=== PATIENT | female | born 1965 | race African-American/Black ===

== ENCOUNTER 2020-05-18 15:25 | Outpatient (REF) | payer OTHER, SELFPAY | END 2020-05-18 15:26 | disposition home or self-care (01) | LOC: HO.LAB 15:25 | PROVIDERS: Visit Provider Internal Medicine | DX: Z20.822 Contact with and (suspected) exposure to COVID-19 (principal) | CPT/HCPCS: 36415; C9803; U0003; U0005 ==

== ENCOUNTER 2020-10-22 12:39 | Emergency (ER) | payer OTHER, SELFPAY ==
[2020-10-22 12:45] VITALS: BP 152/90; PULSE 87; RESP 16; TEMP 36.9; O2SAT 97; BMI 30.2
--- NOTE | 2020-10-22 13:09 | ED_ITS ---
HPI - Extremity Problem General Chief complaint: Extremity Problem Stated complaint: L ARM PAIN Time Seen by Provider: 10/22/20 13:05 Source: patient Limitations: no limitations History of Present Illness HPI Narrative: This is a 55-year-old female who complains of pain to her left lateral elbow for about 3 months. The patient had initially been seen by her primary care physician and was put on anti-inflammatory medicines, was referred for physical therapy. More recently, for 5 days ago. The patient had accidentally cut her left palmar hand along the ulnar aspect. The wound is healed up but she notes some numbness and tingling to her little finger. She denies any weakness of the finger. Related Data Previous Rx's Medication Instructions Recorded meloxicam 7.5 mg PO DAILY #14 tab 10/22/20 Allergies Allergy/AdvReac Type Severity Reaction Status Date / Time No Known Allergies Allergy Verified 10/22/20 12:48 [No Known Allergies*] Review of Systems Review of Systems: As per HPI Musculoskeletal: Musculoskeletal: Reports arthralgias (Left elbow) Neurologic: Reports paresthesias [facility] Past Medical History Medical History (Updated 10/22/20 @ 13:09 by Malvin iRch MD) Arthritis Carpal tunnel syndrome HTN (hypertension) Sleep apnea Social History Social History Advance Directives: Yes Advance Directives Information Provided: Yes Advance Directives on File: No Patient : No Physical Exam Vital Signs: Vital Signs: Last Vital Signs Temp 98.4 F 10/22/20 12:45 Pulse 87 10/22/20 12:45 Resp 16 10/22/20 12:45 BP 152/90 H 10/22/20 12:45 Pulse Ox 97 10/22/20 12:45 Body Mass Index 30.2 Const: General: healthy appearing HENMT: Head: Yes normal to inspection Eyes: General: appearance normal, both eyes and all related structures Resp: Effort & Inspection: normal respiratory effort Auscultation: clear to auscultation bilaterally Cardio: Rate: regular rate Rhythm: regular rhythm Heart sounds: S1 normal heart sound present and S2 normal heart sound present Extrem: Left upper extremity: full ROM and hand (Left palmar ulnar hand with healed minor laceration. Full power of flexion) Details: other (Subjective decreased sensation to light touch left little finger; left elbow normal except mild tenderness lateral epicondyle, no erythema or swelling) MDM - Extremity (Nontraumatic) MDM Narrative Medical decision making narrative: Patient concerned about a feeling of numbness in her little finger after she had had a laceration to her hand days ago, which is now healed. Normal tendon function. Patient may have had a minor nerve injury which will gradually heal, no intervention necessary. Patient also complained of chronic left lateral elbow pain patient will started meloxicam. No concerning findings on exam of the elbow Discharge Plan Discharge Clinical Impression: Chronic pain of left elbow, Paresthesia of finger Patient Disposition: Home, Self-Care Instructions: Tennis Elbow (ED), Paresthesia (ED) Additional Instructions: Take the meloxicam for your elbow pain. You feeling of numbness and tingling in her little finger, after your recent laceration, with likely gradually get be tter over the next few months. May have had a mild nerve injury. Follow-up with your primary care physician. Prescriptions: New meloxicam 7.5 mg tablet 7.5 mg PO DAILY Qty: 14 RF: 0 Discharge Date/Time: 10/22/20 13:14
== END 2020-10-22 13:14 | disposition home or self-care (01) ==
PROVIDERS: Emergency Provider Emergency Medicine
DX: M25.522 Pain in left elbow (principal); G89.29 Other chronic pain; R20.2 Paresthesia of skin; I10 Essential (primary) hypertension
CPT/HCPCS: 99283

== ENCOUNTER 2021-12-18 13:26 | Emergency (ER) | payer OTHER, SELFPAY ==
[2021-12-18 13:44] VITALS: BP 172/80; PULSE 68; RESP 16; TEMP 37.2; O2SAT 97; BMI 30.8
--- NOTE | 2021-12-18 15:34 | ED.GENADULT ---
HPI - General Adult General Chief complaint: General Medical Stated complaint: Facial swelling Time Seen by Provider: 12/18/21 15:29 Source: patient Mode of arrival: ambulatory Limitations: no limitations History of Present Illness HPI narrative: This is a 56-year-old female with history of fibromyalgia and hypertension who presents with 2 days of lower eyelid swelling and itching a with sinus congestion. Patient denies any sinus pressure or sinus pain. No visual complaints. No cough, sore throat, fevers or chills. Patient denies any home treatments. Related Data Previous Rx's Medication Instructions Recorded meloxicam 7.5 mg tablet 7.5 mg PO DAILY #14 tabs 10/22/20 fluticasone propionate 50 2 spray intranasal DAILY #16 grams 12/18/21 mcg/actuation nasal spray,suspension (Flonase Allergy Relief) loratadine 10 mg tablet (Claritin) 10 mg PO DAILY #30 tabs 12/18/21 Allergies Allergy/AdvReac Type Severity Reaction Status Date / Time No Known Allergies Allergy Verified 10/22/20 12:48 [No Known Allergies*] Review of Systems Review of Systems: Yes all other systems are reviewed and are negative Constitutional: Constitutional: Reports no additional constitutional complaints, Denies body ache(s), Denies chills, Denies fever(s), Denies headache(s) and Denies weakness Eyes: Eyes: Reports no additional eye complaints and Denies change in vision ENT: Reports system reviewed and no additional complaints, except as documented, Denies dizziness, Denies headache(s), Denies nasal congestion, Denies nasal discharge and Denies neck pain Cardiovascular: Cardiovascular: Reports no additional cardiovascular complaints, Denies chest pain, Denies leg edema and Denies dyspnea Respiratory: Respiratory: Reports no additional respiratory complaints, Denies cough and Denies dyspnea Gastrointestinal: Gastrointestinal: Reports no additional gastrointestinal complaints, Denies abdominal pain, Denies diarrhea, Denies nausea and Denies vomiting Genitourinary: Genitourinary: Reports no additional female genitourinary complaints and Denies urinary incontinence Musculoskeletal: Musculoskeletal: Reports no additional musculoskeletal complaints, Denies back pain, Denies arthralgias, Denies joint swelling, Denies neck pain, Denies numbness and Denies tingling Integumentary/Breasts: Skin/Breast: Reports system reviewed and no additional complaints, except as docu and Denies rash Neurologic: Reports system reviewed and no additional complaints, except as documented, Denies dizziness, Denies headache(s), Denies numbness, Denies tingling and Denies weakness PMFSH Past Medical History Attestation statement: The following information was validated with the patient. Source: old records reviewed and nursing notes reviewed Medical History Arthritis Carpal tunnel syndrome HTN (hypertension) Sleep apnea Social History Social History Advance Directives: No Advance Directives Information Provided: No Physical Exam ED Vital Signs: Vital Signs - 24 hr 12/18/21 13:44 Temperature 99.0 F Pulse Rate 68 Respiratory Rate 16 Blood Pressure 172/80 H Pulse Oximetry 97 Oxygen Delivery Method Room Air BMI result Body Mass Index 30.8 Const General: cooperative, healthy appearing, comfortable and no acute distress Orientation/consciousness: patient oriented x3 Limitations: no limitations HENMT Other: To the inferior periorbital area there is slight swelling w/ allergic shiners and no erythema/warmth/tenderness. Ears: hearing grossly normal bilaterally and TM's normal bilaterally General nose exam: Normal external nose present and Abnormal mucous membranes and turbinates present (mild erythema) Face and sinus: Yes sinuses nontender Mouth: Normal oral and palatal mucosa present Throat: Yes posterior oropharynx normal, Yes tonsils normal and Yes uvula midline Eyes General: appearance normal, both eyes and all related structures Pupils: Equal, round and reactive pupils present EOM: EOMs intact bilaterally Neck Neck: Yes normal visual inspection, Yes full ROM and Yes no lymphadenopathy Chest Chest palpation & inspection: normal inspection of the chest Resp Effort & Inspection: normal respiratory effort Auscultation: clear to auscultation bilaterally Cardio Rate: regular rate Rhythm: regular rhythm Peripheral pulses: Peripheral pulses 2+ throughout Skin General skin exam: no rashes or lesions noted Neuro General: patient oriented x3 and moves all extremities Cranial nerves: Yes Equal, round and reactive pupils present Cognition (Neuro): normal cognition Gait exam (Neuro): Normal gait present Medical Decision Making MDM Narrative Medical decision making narrative: 56 yo female here with 2 days of inferior periorbital swelling, nasal congestion. Exam c/w with allergic shiners likely secondary to allergic rhinitis. No sinus pain/pressure to suggest sinusitis. No visual complaints, EOM movement to suggest orbital cellulitis. No redness/ warmth to suggest periorbital cellulitis. Will start nasal sprain, claritin. Medical Records Medical records reviewed: Yes I reviewed the patient's medical records. Lab Data Lab results reviewed: Yes I reviewed the patient's lab results. Discharge Plan Discharge Clinical Impression: Allergic rhinitis Patient Disposition: Home, Self-Care Instructions: Allergic Rhinitis (ED), How to Use Nasal [place] (ED) Additional Instructions: Cool compresses to the face Return for redness or increased swelling or pain with eye movement for vision changes Prescriptions: New fluticasone propionate [Flonase Allergy Relief] 50 mcg/actuation spray,suspension 2 spray intranasal DAILY Qty: 16 0RF Rx Instructions: administer into each nostril loratadine [Claritin] 10 mg tablet 10 mg PO DAILY Qty: 30 0RF No Action meloxicam 7.5 mg tablet 7.5 mg PO DAILY Qty: 14 0RF Referrals: Physician,Unknown J [Primary Care Provider] - 5 days (if no improvement in symptoms ) Interventions: ED Discharge Assessment Last Done: 12/18/21 15:39 Discharge Date/Time: 12/18/21 15:41
== END 2021-12-18 15:41 | disposition home or self-care (01) ==
LOC: HO.ED 15:38
PROVIDERS: Emergency Provider Emergency Medicine
DX: J30.9 Allergic rhinitis, unspecified (principal); I10 Essential (primary) hypertension
CPT/HCPCS: 99282; 99283

== ENCOUNTER 2023-02-09 00:28 | Emergency (ER) | payer MEDICAID, SELFPAY ==
--- NOTE | ~2023-02-09 | XR_ITS ---
EXAMINATION: XR CHEST CLINICAL INFORMATION: Pain, coughing. COMPARISON: Chest radiograph 01/19/2019. TECHNIQUE: 2 views of the chest were obtained. FINDINGS: Unchanged cardiomediastinal silhouette. No focal airspace opacity, pleural effusion or pneumothorax. No acute osseous findings. Visualized upper abdomen is within normal limits. XR/XR chest 2V IMPRESSION: No acute cardiopulmonary findings.
[2023-02-09 00:32] VITALS: BP 174/88; PULSE 95; RESP 16; TEMP 37.1; O2SAT 95; BMI 29.3
[2023-02-09 00:52] VITALS: BP 133/68; PULSE 82; RESP 18; O2SAT 96
--- NOTE | 2023-02-09 02:36 | ED_ITS ---
HPI - General Adult General Chief complaint: Abdominal Pain Stated complaint: Left side pain Time Seen by Provider: 02/09/23 02:33 Source: patient Mode of arrival: ambulatory Limitations: no limitations History of Present Illness HPI narrative: Patient comes to the emergency room complaining of left-sided rib pain. Patient states it started when she was coughing. Patient denies any chest pain or shortness of breath. Patient states it only hurts when she coughs. Related Data Previous Rx's Medication Instructions Recorded meloxicam 7.5 mg tablet 7.5 mg PO DAILY #14 tabs 10/22/20 fluticasone propionate 50 2 spray intranasal DAILY #16 grams 12/18/21 mcg/actuation nasal spray,suspension (Flonase Allergy Relief) loratadine 10 mg tablet (Claritin) 10 mg PO DAILY #30 tabs 12/18/21 benzonatate 100 mg capsule 100 mg PO TID PRN cough #10 caps 02/09/23 Allergies Allergy/AdvReac Type Severity Reaction Status Date / Time No Known Allergies Allergy Verified 10/22/20 12:48 [No Known Allergies*] Review of Systems Review of Systems: Constitutional : No Weight loss, No Fever, No Chills, No Night Sweats, No Fatigue, No Malaise ENT/Mouth : No Hearing loss, No Ear Pain, No Nasal Congestion, No Sinus Pain, No Hoarseness, No sore throat, No Rhinorrhea, No Swallowing Difficulty Eyes: No Eye Pain, No Swelling, No Redness, No Foreign Body, No Discharge, No Vision Changes Cardiovascular : No Chest Pain, No SOB, No Dyspnea on Exertion, No Orthopnea, No Edema, No Palpitations Respiratory : No Cough, No Sputum, No Wheezing, No Smoke Exposure, No Dyspnea Gastrointestinal : No Nausea, No Vomiting, No Diarrhea, No Constipation, No abdominal Pain, No Hematochezia, No Melena Genitourinary : no irregular bleeding, No Dysuria, No Urinary Frequency, No Hematuria, No Urinary Incontinence, No Urgency, No Flank Pain, No Urinary Flow Changes, No Hesitancy Musculoskeletal : Complaining of left-sided rib pain with coughing, No joint pain, No Myalgias, No Joint Swelling Skin : No Skin Lesions, No rash Neuro : No Weakness, No Numbness, No Paresthesias, No Loss of Consciousness, No Dizziness, No Headache Psych : No Anxiety/Panic, No Depression, No SI/HI/AH/VH, No Social Issues, Heme/Lymph: No Bruising, No Bleeding,No Lymphadenopathy Endocrine : No Polyuria, No Polydipsia, No Temperature Intolerance [facility] Past Medical History Medical History Sleep apnea Carpal tunnel syndrome Arthritis HTN (hypertension) Social History Social History Smoked in Last 30 Days: No Use of substances other than those prescribed or required for medical reasons: No Advance Directives: No Advance Directives Information Provided: Yes Patient : No Physical Exam ED Vital Signs: Vital Signs - 24 hr 02/09/23 00:32 02/09/23 00:52 Temperature 98.7 F Pulse Rate 95 82 Respiratory Rate 16 18 Blood Pressure 174/88 H 133/68 Pulse Oximetry 95 96 Oxygen Delivery Method Room Air Room Air BMI result Body Mass Index 29.3 Const Other: Appearance: Alert. Oriented X3. No acute distress. Eyes: Pupils equal, round and reactive to light. ENT: Pharynx normal. Neck: Normal inspection. Neck supple. No lymph nodes noted. No crepitus CVS: Normal heart rate and rhythm. Pulses normal. Normal S1 and S2 Respiratory: No respiratory distress. Breath sounds normal. No Wheezing. No rales Musculoskeletal: Reproducible pain to palpation over the ribs on the left side. Abdomen: Soft and nontender. No rigidity. No distention. Skin: Skin warm and dry. Normal skin color. Normal skin turgor. Extremities: No lower extremity edema. No Lacerations. No Rash Neuro: Oriented X 3. No motor deficit. No sensory deficit. Moving all extremities. No slurred speech. CN 2 through 12 grossly intact Psych: calm, cooperative, normal affect Medical Decision Making Medical Decision Making MDM Narrative: -my interpretation of chest x-ray: No pneumonia, no rib fracture -patient's pain likely secondary to costochondritis, pulled muscle -patient was given 1 dose of IM Toradol Differential Diagnosis Differential Diagnoses: The differential diagnosis associated with the presentation includes (Pneumonia, fractured rib, costochondritis, musculoskeletal pain) Independent Interpretation I performed an independent interpretation of an: Plain X-Ray Radiology Impression Discussion of test interpretation with radiology: I have reviewed the radiologist's reading. Radiologist Impression: Unchanged cardiomediastinal silhouette. No focal airspace opacity, pleural effusion or pneumothorax. No acute osseous findings. Visualized upper abdomen is within normal limits. XR/XR chest 2V IMPRESSION: No acute cardiopulmonary findings. Discharge Plan Discharge Clinical Impression: Costochondritis Patient Disposition: Home, Self-Care Instructions: Costochondritis (ED) Additional Instructions: Please follow-up with your primary care physician tomorrow. If you have any worsening or new symptoms, please return to the emergency room or call 911 Prescriptions: New benzonatate 100 mg capsule 100 mg PO TID PRN (Reason: cough) Qty: 10 0RF No Action meloxicam 7.5 mg tablet 7.5 mg PO DAILY Qty: 14 0RF fluticasone propionate [Flonase Allergy Relief] 50 mcg/actuation spray,suspension 2 spray intranasal DAILY Qty: 16 0RF Rx Instructions: administer into each nostril loratadine [Claritin] 10 mg tablet 10 mg PO DAILY Qty: 30 0RF
[2023-02-09 02:43] VITALS: BP 139/74; PULSE 72; RESP 16; TEMP 36.7; O2SAT 98
[2023-02-09] MEDS: Ketorolac Tromethamine 60 MG/2 ML VIAL IM (02:44)
[2023-02-09] MEDS: Benzonatate 100 MG CAPSULE PO (02:44)
== END 2023-02-09 02:58 | disposition home or self-care (01) ==
PROVIDERS: Emergency Provider Emergency Medicine
DX: M94.0 Chondrocostal junction syndrome [Tietze] (principal); I10 Essential (primary) hypertension
CPT/HCPCS: 71046; 96372; 99284; J1885

== ENCOUNTER 2023-02-12 16:48 | Emergency (ER) | payer MEDICAID, SELFPAY ==
--- NOTE | ~2023-02-12 | US_ITS ---
EXAMINATION: US ABDOMEN LIMITED CLINICAL INFORMATION: Left upper quadrant, epigastric and flank pain. Evaluate pancreas, spleen and left kidney COMPARISON: None available. TECHNIQUE: Real-time imaging of the left upper quadrant abdominal viscera. FINDINGS: PANCREAS: Normal. Spleen: Normal. Spleen measures 8.6 cm in length. Left KIDNEY: Normal. No hydronephrosis. No renal calculi or focal parenchymal lesions. The kidney measures 9.7 cm in maximum dimension. FREE FLUID: None. US/US abdomen limited IMPRESSION: Normal pancreas, spleen and left kidney
[2023-02-12 16:50] VITALS: BP 166/94; PULSE 94; RESP 18; TEMP 36.8; O2SAT 97; BMI 31.2
--- NOTE | 2023-02-12 16:51 | ED.ABDPAIN ---
HPI - Abdominal Pain General Chief Complaint: General Medical Stated Complaint: Lower L sided pain/ was seen sat 02/09 Time Seen by Provider: 02/12/23 22:55 Source: patient and old records reviewed Mode of arrival: ambulatory Limitations: no limitations History of Present Illness HPI narrative: 57 year old post menopausal female with no PMH presents for ongoing left sided pain. She was here on 02/09 for left sided pain and cough since 02/08 and was diagnosed with costochondritis secondary to viral illness. She was given benzonatate upon discharge and was given toradol IM in the ED. She states her cough has improved but her pain is now radiating towards her back x2 days, which it did not do previously. She denies injury to the ribs. She reports the pain is located along her ribs and just inferior to her ribs on the left side. She states the pain is worse with coughing. She states she has minimal discomfort currently. She is unsure if food makes it worse because she has not eaten today due to being busy with work. She denies vomiting, nausea, fever, dyspnea, or urinary symptoms. She reports diarrhea once today, unsure if blood was present. Related Data Previous Rx's Medication Instructions Recorded meloxicam 7.5 mg tablet 7.5 mg PO DAILY #14 tabs 10/22/20 fluticasone propionate 50 2 spray intranasal DAILY #16 grams 12/18/21 mcg/actuation nasal spray,suspension (Flonase Allergy Relief) loratadine 10 mg tablet (Claritin) 10 mg PO DAILY #30 tabs 12/18/21 benzonatate 100 mg capsule 100 mg PO TID PRN cough #10 caps 02/09/23 codeine 10 mg-guaifenesin 100 mg/5 10 ml PO Q6H PRN cough #473 mL 02/12/23 mL oral liquid Allergies Allergy/AdvReac Type Severity Reaction Status Date / Time No Known Allergies Allergy Verified 10/22/20 12:48 [No Known Allergies*] Review of Systems Constitutional: Denies chills, Denies fatigue, Denies fever(s) and Denies poor appetite Denies dysphagia Cardiovascular: Denies chest pain, Denies epigastric discomfort and Denies dyspnea Comments: Left Lateral chest wall pain Respiratory: Reports cough, Denies hemoptysis, Reports pain with cough and Denies dyspnea Gastrointestinal: Denies dysphagia, Reports diarrhea, Denies nausea and Denies vomiting Genitourinary: Denies dysuria, Denies urinary incontinence and Denies urinary urgency Endocrine: Denies fatigue PMFSH Past Medical History Medical History Sleep apnea Carpal tunnel syndrome Arthritis HTN (hypertension) Social History Social History Advance Directives: No Advance Directives Information Provided: No Physical Exam ED Vital Signs: Vital Signs - 24 hr 02/12/23 16:50 02/12/23 22:52 Temperature 98.2 F 98.1 F Pulse Rate 94 87 Respiratory Rate 18 18 Blood Pressure 166/94 H 140/71 H Pulse Oximetry 97 98 Oxygen Delivery Method Room Air Room Air BMI result Body Mass Index 31.2 Const General: cooperative, healthy appearing, comfortable, no acute distress, well developed, alert and awake Nutritional Appearance: well nourished Orientation/consciousness: patient oriented x3 Limitations: no limitations HENMT Head: Yes normal to inspection, Yes normocephalic and Yes atraumatic Ears: hearing grossly normal bilaterally General nose exam: Normal external nose present and Normal nares present Eyes Conjunctivae: conjunctivae normal Sclerae: sclerae normal Corneas: corneas normal Pupils: Equal, round and reactive pupils present Chest Chest palpation & inspection: abnormal palpation of chest wall (tender to palpation on left sided ribs) and no crepitus Resp Effort & Inspection: normal respiratory effort and able to speak in complete sentences Auscultation: clear to auscultation bilaterally Cardio Rate: regular rate Rhythm: regular rhythm GI Inspection: No distended Palpation (GI): Soft to palpation, not firm, nontender, no guarding and not rigid General: Yes no CVA tenderness Back/Spine/Pelvis Back: no CVA tenderness Skin General skin exam: no rashes or lesions noted Neuro General: patient oriented x3 Cranial nerves: Yes Equal, round and reactive pupils present Cognition (Neuro): normal cognition Psych Appearance: grossly normal Mental Status: mental status grossly normal Attitude: cooperative Course Course Course Narrative: RME: 57yo F w/PMHx sleep apnea, arthritis, HTN, c/o LUQ abd pain radiating to L flank x 4 days. Patient was seen in our ED on Saturday for similar sx dx w/costochrondritis, had negative CXR at that time abdomen soft nontender, no CVAT EKG, labs, UA, US ordered Full HPI, ROS and PE to be performed by primary ED provider. Medical Decision Making Medical Decision Making [facility] Narrative: 57-year-old female presents for evaluation of left-sided chest wall pain that is reproducible on exam. There is no crepitus, chest x-ray is clear without infiltrates or effusions. Troponin is undetectable despite 4 days worth of pain. Agree with recent diagnosis of costochondritis as the patient's symptoms oral and present for a total of 4 days. I educated the patient that her symptoms may last for up to a week. She does state that her cough is improving. I ordered a D-dimer which was negative which is essentially rules out PE. I have a low suspicion for PE as patient does not have any risk factors. Plan to discharge the patient with Mucinex with codeine to help with the cough and the pain Differential Diagnosis Differential Diagnoses: The differential diagnosis associated with the presentation includes costochondritis viral syndrome nephrolithiasis rib fracture less likely PE less likely Lab Data [facility] Lab Attestation statement: I reviewed the patient's lab results. Mild leukocytosis with no anemia. Platelet count is just above normal at 424 K. No electrolyte abnormalities. Normal LFTs. Troponin undetectable 02/12/23 17:12 02/12/23 17:12 Labs: Lab Results 02/12/23 Range/Units 17:12 WBC 13.0 H (4.8-10.8) X10*3/uL RBC 4.42 (4.20-5.50) X10*6/uL Hgb 12.6 (12.0-16.0) g/dl Hct 38.8 (37.0-47.0) % MCV 87.8 (80.0-98.0) fL MCH 28.5 (27.0-33.0) pg MCHC 32.5 (31.0-35.0) g/dl RDW 12.6 (11.0-16.0) % Plt Count 424 H (160-400) X10*3/uL MPV 8.6 L (9.4-12.3) fL Immature Gran % (Auto) 0.6 H (0.0-0.4) % Neut % (Auto) 68.8 (45-73) % Lymph % (Auto) 25.3 (20-40) % [place] % (Auto) 4.4 (2-11) % Eos % (Auto) 0.1 (0-4) % Baso % (Auto) 0.8 (0-2) % Lymph # (Auto) 3.3 (1.2-4.9) X10*3/uL [place] # (Auto) 0.6 (0.1-1.2) X10*3/uL Eos # (Auto) 0.0 (0.0-0.4) X10*3/uL Baso # (Auto) 0.1 (0.0-0.2) X10*3/uL Abs Immat Gran (auto) 0.08 H (0.00-0.03) X10*3/uL Absolute Neuts (auto) 8.9 H (2.0-8.3) x10*3/uL Absolute Nucleated RBC 0.000 (0.0-0.012) X10*3/uL Nucleated RBC % (auto) 0.0 (0.0-0.2) /100WBC PT 12.7 (11.1-13.3) SEC INR 1.0 (0.9-1.1) D-Dimer High Sensitivty < 150 NG/ML Sodium 142 (135-145) mmol/L Potassium 3.4 (3.3-5.1) mmol/L Chloride 106 (96-108) mmol/L Carbon Dioxide 25 (22-29) mmol/L Anion Gap 14 (12-20) BUN 13 (9-16) mg/dL Creatinine 0.80 (0.5-1.4) mg/dL Estim Creat Clear Calc 68.9 Estimated GFR > 60 Random Glucose 132 H (60-115) mg/dL Calcium 9.7 (8.4-10.2) mg/dL Magnesium 2.2 (1.6-2.6) mg/dL Total Bilirubin 0.9 (0.0-1.0) mg/dL Direct Bilirubin 0.3 (0.0-0.5) mg/dL AST 32 H (5-31) U/L ALT 29 (0-31) U/L Alkaline Phosphatase 126 H (39-117) U/L Troponin I High Sens < 2.7 (<3.5-17.0) ng/L Total Protein 7.8 (6.5-8.0) g/dL Albumin 4.5 (3.5-5.0) g/dL Lipase 15 (8-78) U/L Urine Color Yellow Urine Appearance Cloudy Urine pH 5.5 (5.0-9.0) Ur Specific [place] 1.025 (1.005-1.025) Urine Protein Trace (Neg-Trace) mg/dL Urine Glucose (UA) Negative (Negative) mg/dL Urine Ketones Trace (Negative) mg/dL Urine Blood Negative (Negative) Urine Nitrite Negative (Negative) Ur Leukocyte Esterase Negative (Negative) Independent Interpretation I performed an independent interpretation of an: Plain X-Ray Interpretation: Or infiltrate Radiology Impression Discussion of test interpretation with radiology: I have reviewed the radiologist's reading. (No acute cardiopulmonary finding) Radiologist Impression: Sounds shows normal pancreas, spleen, left kidney. Tests considered The following testing was considered but not selected: A considered CT angiography of the chest, however D-dimer was negative and the patient is low risk for PE Prescription Management I considered prescription management with: Pain Medication Discharge Plan Discharge Clinical Impression: Costochondritis Patient Disposition: Home, Self-Care Instructions: Costochondritis (ED) Additional Instructions: Your workup in the emergency department today was reassuring. This includes your blood work, chest x-ray, abdominal ultrasound. I agree that costochondritis is the cause of your pain NSAIDs such as ibuprofen are the main treatment for this You may add Mucinex with codeine due to severe pain This may make you sleepy, did not drink alcohol or drive after taking this Follow-up with your primary doctor Prescriptions: New codeine-guaifenesin 10-100 mg/5 mL liquid 10 ml PO Q6H PRN (Reason: cough) Qty: 473 0RF No Action meloxicam 7.5 mg tablet 7.5 mg PO DAILY Qty: 14 0RF fluticasone propionate [Flonase Allergy Relief] 50 mcg/actuation spray,suspension 2 spray intranasal DAILY Qty: 16 0RF Rx Instructions: administer into each nostril loratadine [Claritin] 10 mg tablet 10 mg PO DAILY Qty: 30 0RF benzonatate 100 mg capsule 100 mg PO TID PRN (Reason: cough) Qty: 10 0RF
--- NOTE | 2023-02-12 16:54 | ECG_ITS ---
Test Reason : l chest pain Blood Pressure : / mmHG Vent. Rate : 091 BPM Atrial Rate : 091 BPM P-R Int : 138 ms QRS Dur : 078 ms QT Int : 376 ms P-R-T Axes : 055 025 042 degrees QTc Int : 462 ms Normal sinus rhythm Normal ECG No significant changes seen Referred By: Sravanthi Church Electronically Signed By:LUCY ALCANTAR MD
[2023-02-12 17:20] LABS: MANUAL DIFF FLAG NO
[2023-02-12 17:22] LABS: Basophils Absolute Auto 0.1 X10*3/uL (0.0-0.2); Basophils Percent Auto 0.8 % (0-2); Eosinophils Percent Auto 0.1 % (0-4); Hematocrit 38.8 % (37.0-47.0); Hemoglobin 12.6 g/dl (12.0-16.0); Imm Gran Abs Auto 0.08 X10*3/uL (0.00-0.03); Imm Gran Pct Auto 0.6 % (0.0-0.4); Lymphocytes Absolute Auto 3.3 X10*3/uL (1.2-4.9); Lymphocytes Percent Auto 25.3 % (20-40); Mean Corpuscular HGB Conc 32.5 g/dl (31.0-35.0); Mean Corpuscular Hemoglobin 28.5 pg (27.0-33.0); Mean Corpuscular Volume 87.8 fL (80.0-98.0); Mean Platelet Volume 8.6 fL (9.4-12.3); Monocytes Absolute Auto 0.6 X10*3/uL (0.1-1.2); Monocytes Percent Auto 4.4 % (2-11); Neutrophils Absolute Auto 8.9 x10*3/uL (2.0-8.3); Neutrophils Percent Auto 68.8 % (45-73); Platelet Count 424 X10*3/uL (160-400); Red Blood Count 4.42 X10*6/uL (4.20-5.50); Red Cell Distribution Width 12.6 % (11.0-16.0)
[2023-02-12 17:23] LABS: Appearance Urine Cloudy; Color Urine Yellow; Glucose Urine UA Negative (Negative); Leukocyte Esterase Urine Negative (Negative); Nitrite Urine Negative (Negative); PH 5.5 (5.0-9.0); Specific Gravity - Urine 1.025 (1.005-1.025); Urine Blood Negative (Negative); Urine Ketones Trace mg/dL (Negative); Urine Protein Trace mg/dL (Neg-Trace)
[2023-02-12 17:27] LABS: Prothrombin Time 12.7 SEC (11.1-13.3)
[2023-02-12 17:36] LABS: Alanine Aminotransferase 29 U/L (0-31); Albumin Level 4.5 g/dL (3.5-5.0); Alkaline Phosphatase 126 U/L (39-117); Anion Gap 14 (12-20); Aspartate Amino Transferase 32 U/L (5-31); Bilirubin Direct 0.3 mg/dL (0.0-0.5); Bilirubin Total 0.9 mg/dL (0.0-1.0); Blood Urea Nitrogen 13 mg/dL (9-16); Calcium 9.7 mg/dL (8.4-10.2); Carbon Dioxide 25 mmol/L (22-29); Chloride 106 mmol/L (96-108); Creatinine Clr Calc Pharmacy 68.9; Estimated Glomerular Filt Rate > 60; Glucose Random 132 mg/dL (60-115); Lipase 15 U/L (8-78); Magnesium 2.2 mg/dL (1.6-2.6); Potassium 3.4 mmol/L (3.3-5.1); Sodium 142 mmol/L (135-145); Total Protein 7.8 g/dL (6.5-8.0)
[2023-02-12 17:54] LABS: Troponin-I High Sensitivity < 2.7 ng/L (<3.5-17.0)
[2023-02-12 22:52] VITALS: BP 140/71; PULSE 87; RESP 18; TEMP 36.7; O2SAT 98
[2023-02-12 23:23] LABS: D Dimer High Sensitivity < 150 NG/ML
[2023-02-13 00:19] VITALS: BP 159/77; PULSE 71; RESP 16; TEMP 36.6; O2SAT 99
== END 2023-02-13 00:23 | disposition home or self-care (01) ==
PROVIDERS: Physician Assistant; Emergency Provider Internal Medicine
DX: M94.0 Chondrocostal junction syndrome [Tietze] (principal); R10.12 Left upper quadrant pain; I10 Essential (primary) hypertension; Z79.899 Other long term (current) drug therapy
CPT/HCPCS: 36415; 76705; 80048; 80076; 81003; 83690; 83735; 84484; 85025; 85379; 85610; 93005; 99284

== ENCOUNTER 2023-02-19 00:34 | Emergency (ER) | payer MEDICAID, SELFPAY ==
--- NOTE | 2023-02-19 | ECG_ITS ---
Test Reason : CHEST PAIN Blood Pressure : / mmHG Vent. Rate : 076 BPM Atrial Rate : 076 BPM P-R Int : 158 ms QRS Dur : 084 ms QT Int : 416 ms P-R-T Axes : 054 021 038 degrees QTc Int : 468 ms Normal sinus rhythm Nonspecific ST and T wave abnormality RSR' or QR pattern in V1 suggests right ventricular conduction delay Abnormal ECG When compared with ECG of 12-FEB-2023 17:03, T wave inversion more evident in Anteroseptal leads Referred By: Generic ED Physician Electronically Signed By:LUCY ALCANTAR MD
[2023-02-19 00:47] VITALS: BP 151/79; PULSE 82; RESP 20; TEMP 36.5; O2SAT 98; BMI 29.3
[2023-02-19 01:35] LABS: Influenza A PCR NEGATIVE (Negative); Influenza B PCR NEGATIVE (Negative); Resp Syncy Virus RNA Qual PCR NEGATIVE (Negative); SARS COV2 PCR INHOUSE NEGATIVE (Negative)
[2023-02-19 01:53] VITALS: BP 128/79; PULSE 81; RESP 16; TEMP 36.8; O2SAT 97
--- NOTE | 2023-02-19 01:54 | PC.NURSE ---
Pt ca&ox4, no signs of distress. Pt reports 10/10 sharp reproducible left chest pain that radiates to left side of neck and back onset of saturday. Pt denies n/v and fever. Pt placed on bedside monitor. Vitals stable Plan of care ongoing.
[2023-02-19 06:00] VITALS: BP 134/75; PULSE 77; RESP 18; TEMP 36.6; O2SAT 96
--- NOTE | 2023-02-19 08:13 | ED_ITS ---
HPI - General Adult General Chief complaint: General Medical Stated complaint: Chest wall pain Time Seen by Provider: 02/19/23 07:06 Source: patient Mode of arrival: ambulatory History of Present Illness HPI narrative: 57-year-old female presents with substernal chest discomfort since Saturday and reports that it worsens with deep inspiration, she also reports that it is reproducible on palpation and denies any dizziness/headache, denies any fever or chills, denies any new cough for sore throat. Related Data Previous Rx's Medication Instructions Recorded meloxicam 7.5 mg tablet 7.5 mg PO DAILY #14 tabs 10/22/20 fluticasone propionate 50 2 spray intranasal DAILY #16 grams 12/18/21 mcg/actuation nasal spray,suspension (Flonase Allergy Relief) loratadine 10 mg tablet (Claritin) 10 mg PO DAILY #30 tabs 12/18/21 benzonatate 100 mg capsule 100 mg PO TID PRN cough #10 caps 02/09/23 tramadol 50 mg tablet 50 mg PO Q6H PRN severe pain 02/13/23 (scale score 7-10) #12 tabs Allergies Allergy/AdvReac Type Severity Reaction Status Date / Time No Known Allergies Allergy Verified 10/22/20 12:48 [No Known Allergies*] Review of Systems Review of Systems: Pertinent positives and negatives as stated in HPI [facility] Past Medical History Source: nursing notes reviewed Medical History Sleep apnea Carpal tunnel syndrome Arthritis HTN (hypertension) Social History Social History Alcohol intake: never Smoked in Last 30 Days: No Use of substances other than those prescribed or required for medical reasons: No Advance Directives: No Advance Directives Information Provided: No Patient : No Physical Exam ED Vital Signs: Vital Signs - 24 hr 02/19/23 00:47 02/19/23 01:53 02/19/23 06:00 Temperature 97.7 F 98.2 F 97.8 F Pulse Rate 82 81 77 Respiratory Rate 20 16 18 Blood Pressure 151/79 H 128/79 134/75 Pulse Oximetry 98 97 96 Oxygen Delivery Method Room Air Room Air Room Air BMI result Body Mass Index 29.3 VITAL SIGNS: Reviewed. GENERAL: Well developed, well nourished, in no acute distress. HEAD: Normocephalic/atraumatic EYES: PERRLA, EOMI EARS: Ext canals without abnormality NOSE: Nares patent bilateral OROPHARYNX: no oral lesions noted, posterior pharynx clear NECK: Supple, no adenopathy LUNGS: Normal breath sounds. No adventitious sounds or accessory muscle use. SpO2<96> CARDIOVASCULAR: Regular rate and rhythm without noted murmurs ABDOMEN: Soft, non-tender, non-distended with bowel sounds. MUSCULOSKELETAL: No tenderness, deformities, or effusions noted on gross inspection. EXTREMITIES: No cyanosis, clubbing or edema. SKIN: Inspection of the skin reveals no rashes NEUROLOGIC: Alert and oriented x 4. Strength and sensation to light touch were grossly intact x 4. Medical Decision Making Medical Decision Making [facility] Narrative: This is a 57-year-old female who has been seen here in the emergency room on 02/09 as well as 02/12 and today has a history and clinical presentation suggestive of possible but less likely viral illness, musculoskeletal pain, and I did review previous imaging studies as well as lab work. EKG does not demonstrate any STEMI and there are no significant changes on comparison with 02/12. I reviewed viral testing which is negative for influenza/RSV/COVID-19. Patient otherwise appears well and I have strongly recommended that she follow- up with her primary care doctor for further evaluation but at this time I do feel that her discomfort is secondary to musculoskeletal pain and she was directed to use combination analgesics there are no significant findings in the history or on exam to suggest brewing pneumonia or intra-abdominal infection. Differential Diagnosis Differential Diagnoses: The differential diagnosis associated with the presentation includes Please see the discussion above Admission/Observation Consideration of admission/observation: Escalation of care including admission/observation considered Please see the discussion above Lab Data [facility] Lab Attestation statement: I reviewed the patient's lab results. Please see the discussion above Labs: Lab Results 02/19/23 Range/Units 00:54 Influenza Type A (PCR) NEGATIVE (Negative) Influenza Type B (PCR) NEGATIVE (Negative) RSV RNA Qual (PCR) NEGATIVE (Negative) SARS-CoV-2 RNA (RT-PCR) NEGATIVE (Negative) Independent Interpretation I performed an independent interpretation of an: EKG Interpretation: Normal sinus rhythm, HR-76, no STEMI, ME/QRS/QTC is within normal limits External Record Review External record reviewed: Outpatient record, Prior outpatient labs and Prior outpatient radiology Discharge Plan Discharge Clinical Impression: Atypical chest pain, Pain of anterior chest wall with respiration, Musculoskeletal pain Patient Disposition: Home, Self-Care Instructions: Chest Wall Pain (ED), Musculoskeletal Pain (ED) Additional Instructions: 1. Resume all home medications, but recommend that you avoid ibuprofen/Motrin/aspirin/Excedrin/Naprosyn/leave as this could contribute to any issues with acid reflux. 2. Please follow-up with your primary care doctor in the next 1-2 days. Return to the ER for any worsening symptoms. Prescriptions: No Action meloxicam 7.5 mg tablet 7.5 mg PO DAILY Qty: 14 0RF fluticasone propionate [Flonase Allergy Relief] 50 mcg/actuation spray,suspension 2 spray intranasal DAILY Qty: 16 0RF Rx Instructions: administer into each nostril loratadine [Claritin] 10 mg tablet 10 mg PO DAILY Qty: 30 0RF benzonatate 100 mg capsule 100 mg PO TID PRN (Reason: cough) Qty: 10 0RF tramadol 50 mg tablet 50 mg PO Q6H PRN (Reason: severe pain (scale score 7-10)) Qty: 12 0RF
== END 2023-02-19 09:01 | disposition home or self-care (01) ==
PROVIDERS: Emergency Provider Student in an Organized Health Care Education/Training Program
DX: R07.89 Other chest pain (principal); M79.18 Myalgia, other site; Z20.822 Contact with and (suspected) exposure to COVID-19; Z20.828 Contact with and (suspected) exposure to other viral communicable diseases
CPT/HCPCS: 0241U; 93005; 99283; 99284

== ENCOUNTER 2023-02-20 00:30 | Emergency (ER) | payer MEDICAID, SELFPAY ==
[2023-02-20 00:50] VITALS: BP 164/90; PULSE 90; RESP 18; TEMP 37.2; O2SAT 98; BMI 31.0
[2023-02-20 01:33] VITALS: BP 162/90; PULSE 101; RESP 15; O2SAT 95
[2023-02-20 01:39] LABS: MANUAL DIFF FLAG NO
[2023-02-20 01:40] LABS: Basophils Absolute Auto 0.1 X10*3/uL (0.0-0.2); Basophils Percent Auto 0.4 % (0-2); Eosinophils Absolute Auto 0.3 X10*3/uL (0.0-0.4); Eosinophils Percent Auto 1.8 % (0-4); Hematocrit 37.3 % (37.0-47.0); Hemoglobin 11.9 g/dl (12.0-16.0); Imm Gran Abs Auto 0.06 X10*3/uL (0.00-0.03); Imm Gran Pct Auto 0.4 % (0.0-0.4); Lymphocytes Percent Auto 17.6 % (20-40); Mean Corpuscular HGB Conc 31.9 g/dl (31.0-35.0); Mean Corpuscular Volume 87.8 fL (80.0-98.0); Mean Platelet Volume 8.9 fL (9.4-12.3); Monocytes Absolute Auto 1.3 X10*3/uL (0.1-1.2); Monocytes Percent Auto 7.7 % (2-11); Neutrophils Absolute Auto 12.1 x10*3/uL (2.0-8.3); Neutrophils Percent Auto 72.1 % (45-73); Platelet Count 380 X10*3/uL (160-400); Red Blood Count 4.25 X10*6/uL (4.20-5.50); Red Cell Distribution Width 12.6 % (11.0-16.0); White Blood Count 16.7 X10*3/uL (4.8-10.8)
--- NOTE | 2023-02-20 01:50 | ED_ITS ---
HPI - Female Genitourinary General Chief complaint: Urogenital-Female Stated complaint: ?Vaginal bleeding Time Seen by Provider: 02/20/23 01:19 Source: patient and old records reviewed Mode of arrival: ambulatory Limitations: no limitations History of Present Illness HPI Narrative: 57 yo female with PMH of 3 visits in the past couple of weeks for viral syndrome and chest wall pain being treated with supportive medications for costochondritis. At this time she notes tonight she went to urinate and she saw blood on the toilet paper and in the toilet no clots. No pain, fevers, vomiting. She thinks she might have had a stone in the past. MD elicited complaint: other (possible hematuria) Onset (ago): hour(s) (1) Location of symptoms: suprapubic Severity: mild Vaginal discharge: none Vaginal bleeding: none Urinary symptoms: Hematuria Exacerbating factors: urination Relieving factors: none Associated symptoms: denies other symptoms Treatment prior to arrival: none Related Data Previous Rx's Medication Instructions Recorded meloxicam 7.5 mg tablet 7.5 mg PO DAILY #14 tabs 10/22/20 fluticasone propionate 50 2 spray intranasal DAILY #16 grams 12/18/21 mcg/actuation nasal spray,suspension (Flonase Allergy Relief) loratadine 10 mg tablet (Claritin) 10 mg PO DAILY #30 tabs 12/18/21 benzonatate 100 mg capsule 100 mg PO TID PRN cough #10 caps 02/09/23 tramadol 50 mg tablet 50 mg PO Q6H PRN severe pain 02/13/23 (scale score 7-10) #12 tabs Allergies Allergy/AdvReac Type Severity Reaction Status Date / Time No Known Allergies Allergy Verified 10/22/20 12:48 [No Known Allergies*] Review of Systems 2 Review of Systems: Constitutional : No Fever, No Chills, No Fatigue ENT/Mouth : No sore throat, No Rhinorrhea Eyes: No Eye Pain, No Swelling, No Redness Cardiovascular : pos Chest Pain, No SOB, No Dyspnea on Exertion Respiratory : No Cough, No Sputum Gastrointestinal : No Nausea, No Vomiting, No Diarrhea, No abdominal Pain Genitourinary : No Dysuria, No Urinary Frequency, pos Hematuria, Musculoskeletal : No joint pain, No Myalgias, No Joint Swelling Skin : No Skin Lesions, No rash Neuro : No Weakness, No Numbness, No Dizziness, no Headache Psych : No Anxiety/Panic, No Depression Heme/Lymph: No Bruising, No Bleeding,No Lymphadenopathy Endocrine : No Polyuria, No Polydipsia All other systems reviewed and are negative [facility] Past Medical History Medical History Sleep apnea Carpal tunnel syndrome Arthritis HTN (hypertension) Social History Social History Alcohol intake: never Advance Directives: No Advance Directives Information Provided: Yes Physical Exam 2 Vital Signs: Vital Signs: Last Vital Signs Temp 99 F 02/20/23 00:50 Pulse 101 H 02/20/23 01:33 Resp 15 02/20/23 01:33 BP 162/90 H 02/20/23 01:33 Pulse Ox 95 02/20/23 01:33 O2 Del Method Room Air 02/20/23 01:33 BMI result Body Mass Index 31.0 Appearance: Alert. Oriented X3. No acute distress. Eyes: Pupils equal, round and reactive to light. ENT: Pharynx normal. Neck: Normal inspection. Neck supple. CVS: Normal heart rate and rhythm. Pulses normal. chest: ttp along chest wall Respiratory: No respiratory distress. Breath sounds normal. Abdomen: Soft and nontender. Skin: Skin warm and dry. Normal skin color. Normal skin turgor. Extremities: No lower extremity edema. No calf ttp Neuro: Oriented X 3. No motor deficit. No sensory deficit. Medical Decision Making Medical Decision Making [facility] Narrative: 57 yo female with PMH of costochondritis now here with c/o seeing blood on toilet paper and in toilet after urination - no pain to suggest a stone, unsure if it was related to urine or vagina. will obtain basic labs and UA. If UTI will treat with antibiotics. Just had US on 02/12 that showed no renal stones. If vaginal bleeding will refer to OBGYN for post menopausal bleeding. Has no abdominal ttp . Differential Diagnosis Differential Diagnoses: The differential diagnosis associated with the presentation includes post menopausal bleeding, cystitis Admission/Observation Consideration of admission/observation: Escalation of care including admission/observation considered can follow up with her PCP and OBGYN Lab Data [facility] Lab Attestation statement: I reviewed the patient's lab results. WBC trending up but no infectious symptoms and no fevers. just had normal US and CXR. 02/20/23 01:32 02/20/23 01:32 Labs: Lab Results 02/20/23 02/20/23 Range/Units 01:32 02:26 WBC 16.7 H (4.8-10.8) X10*3/uL RBC 4.25 (4.20-5.50) X10*6/uL Hgb 11.9 L (12.0-16.0) g/dl Hct 37.3 (37.0-47.0) % MCV 87.8 (80.0-98.0) fL MCH 28.0 (27.0-33.0) pg MCHC 31.9 (31.0-35.0) g/dl RDW 12.6 (11.0-16.0) % Plt Count 380 (160-400) X10*3/uL MPV 8.9 L (9.4-12.3) fL Immature Gran % (Auto) 0.4 (0.0-0.4) % Neut % (Auto) 72.1 (45-73) % Lymph % (Auto) 17.6 L (20-40) % [place] % (Auto) 7.7 (2-11) % Eos % (Auto) 1.8 (0-4) % Baso % (Auto) 0.4 (0-2) % Lymph # (Auto) 3.0 (1.2-4.9) X10*3/uL [place] # (Auto) 1.3 H (0.1-1.2) X10*3/uL Eos # (Auto) 0.3 (0.0-0.4) X10*3/uL Baso # (Auto) 0.1 (0.0-0.2) X10*3/uL Abs Immat Gran (auto) 0.06 H (0.00-0.03) X10*3/uL Absolute Neuts (auto) 12.1 H (2.0-8.3) x10*3/uL Absolute Nucleated RBC 0.000 (0.0-0.012) X10*3/uL Nucleated RBC % (auto) 0.0 (0.0-0.2) /100WBC Sodium 143 (135-145) mmol/L Potassium 3.8 (3.3-5.1) mmol/L Chloride 108 (96-108) mmol/L Carbon Dioxide 26 (22-29) mmol/L Anion Gap 13 (12-20) BUN 12 (9-16) mg/dL Creatinine 0.82 (0.5-1.4) mg/dL Estim Creat Clear Calc 67.0 Estimated GFR > 60 Random Glucose 105 (60-115) mg/dL Calcium 9.0 D (8.4-10.2) mg/dL Total Bilirubin 0.6 (0.0-1.0) mg/dL AST 21 (5-31) U/L ALT 28 (0-31) U/L Alkaline Phosphatase 130 H (39-117) U/L Total Protein 7.1 (6.5-8.0) g/dL Albumin 4.0 (3.5-5.0) g/dL Urine Color Yellow Urine Appearance Clear Urine pH 5.5 (5.0-9.0) Ur Specific [place] 1.025 (1.005-1.025) Urine Protein Negative (Neg-Trace) mg/dL Urine Glucose (UA) Negative (Negative) mg/dL Urine Ketones Trace (Negative) mg/dL Urine Blood Negative (Negative) Urine Nitrite Negative (Negative) Ur Leukocyte Esterase Negative (Negative) External Record Review External record reviewed: Inpatient record Discharge Plan Discharge Clinical Impression: Abnormal vaginal bleeding Patient Disposition: Home, Self-Care Instructions: Dysfunctional Uterine Bleeding (ED) Additional Instructions: repeat your cbc in 3 days. return for worsening pain, fevers, vomiting, or bleeding no bleed seen in urine. mild increased in white blood cell count nonspecific Prescriptions: No Action meloxicam 7.5 mg tablet 7.5 mg PO DAILY Qty: 14 0RF fluticasone propionate [Flonase Allergy Relief] 50 mcg/actuation spray,suspension 2 spray intranasal DAILY Qty: 16 0RF Rx Instructions: administer into each nostril loratadine [Claritin] 10 mg tablet 10 mg PO DAILY Qty: 30 0RF benzonatate 100 mg capsule 100 mg PO TID PRN (Reason: cough) Qty: 10 0RF tramadol 50 mg tablet 50 mg PO Q6H PRN (Reason: severe pain (scale score 7-10)) Qty: 12 0RF Referrals: Rui Peacock MD [Physician] - (OBGYN call to schedule appointment)
[2023-02-20 01:56] LABS: Alanine Aminotransferase 28 U/L (0-31); Alkaline Phosphatase 130 U/L (39-117); Anion Gap 13 (12-20); Aspartate Amino Transferase 21 U/L (5-31); Bilirubin Total 0.6 mg/dL (0.0-1.0); Blood Urea Nitrogen 12 mg/dL (9-16); Carbon Dioxide 26 mmol/L (22-29); Chloride 108 mmol/L (96-108); Estimated Glomerular Filt Rate > 60; Glucose Random 105 mg/dL (60-115); Potassium 3.8 mmol/L (3.3-5.1); Sodium 143 mmol/L (135-145); Total Protein 7.1 g/dL (6.5-8.0)
[2023-02-20 02:50] LABS: Appearance Urine Clear; Color Urine Yellow; Glucose Urine UA Negative (Negative); Leukocyte Esterase Urine Negative (Negative); Nitrite Urine Negative (Negative); PH 5.5 (5.0-9.0); Specific Gravity - Urine 1.025 (1.005-1.025); Urine Blood Negative (Negative); Urine Ketones Trace mg/dL (Negative); Urine Protein Negative (Neg-Trace)
== END 2023-02-20 03:23 | disposition home or self-care (01) ==
PROVIDERS: Emergency Provider Emergency Medicine
DX: N93.8 Other specified abnormal uterine and vaginal bleeding (principal); R31.9 Hematuria, unspecified; Z79.899 Other long term (current) drug therapy
CPT/HCPCS: 36415; 80053; 81003; 85025; 99283

== ENCOUNTER 2024-03-30 10:25 | Emergency (ER) | payer MEDICAID, SELFPAY ==
--- NOTE | ~2024-03-30 | XR_ITS ---
EXAMINATION: XR CHEST CLINICAL INFORMATION: Coughing. pneumonia? COMPARISON: 02/01/2023, 01/19/2019. TECHNIQUE: Frontal view of the chest was obtained. FINDINGS: The cardiac, hilar, and mediastinal contours are normal. The lungs are clear bilaterally. No pneumothorax or effusion. There is a mild levoconvex thoracic scoliosis, apex at T11. No acute bony or soft tissue abnormalities identified. XR/XR chest 1V IMPRESSION: No active pulmonary disease. Electronically signed by: Jonathan Conley MD 03/30/2024 01:06 PM [facility]
[2024-03-30 10:28] VITALS: BP 144/82; PULSE 110; RESP 16; TEMP 37; O2SAT 94; BMI 31.2
[2024-03-30 10:57] LABS: IDNOW Serial# 58CA691E; Strep A Nucleic Acid Negative (Negative)
--- NOTE | 2024-03-30 11:12 | PC.NURSE ---
a&ox4. vss and up to date aside from being slightly tachycardic. pt presents to the ED w/ URI sx x 3 days. pt reports headache, runny nose, fever, chills, body aches. swabs obtained in triage - results pending. on RA w/o difficulty - no sob/wob noted. respirations even/unlabored. plan of care ongoing.
[2024-03-30 11:26] LABS: Influenza A PCR NEGATIVE (Negative); Influenza B PCR NEGATIVE (Negative); Resp Syncy Virus RNA Qual PCR NEGATIVE (Negative); SARS COV2 PCR INHOUSE NEGATIVE (Negative)
--- NOTE | 2024-03-30 11:37 | ED_ITS ---
HPI - General Adult General Chief complaint: Upper Respiratory Symptoms Stated complaint: cough headache Time Seen by Provider: 03/30/24 11:19 Source: patient Mode of arrival: ambulatory Limitations: no limitations History of Present Illness ED Provider: Ninoska Willoughby HPI narrative: 58 yold female with past medical history of hypertension presents to ED for URI symptoms pain patient states coughing, headache, nasal congestion since . Patient denies any chest pain or shortness of breath. Patient denies any leg swelling, calf pain, pleurisy, recent long travel or recent surgery. Related Data Previous Rx's ?Medication ?Instructions ?Recorded meloxicam 7.5 mg tablet 7.5 mg PO DAILY #14 tabs 10/22/20 fluticasone propionate 50 2 spray intranasal DAILY #16 grams 12/18/21 mcg/actuation nasal spray,suspension (Flonase Allergy Relief) loratadine 10 mg tablet (Claritin) 10 mg PO DAILY #30 tabs 12/18/21 benzonatate 100 mg capsule 100 mg PO TID PRN cough #10 caps 02/09/23 tramadol 50 mg tablet 50 mg PO Q6H PRN severe pain 02/13/23 (scale score 7-10) #12 tabs benzonatate 200 mg capsule 200 mg PO TID PRN cough #15 caps 03/30/24 Allergies Allergy/AdvReac Type Severity Reaction Status Date / Time No Known Allergies Allergy Verified 03/30/24 10:30 [No Known Allergies*] Review of Systems Review of Systems: Headaches, congestion, body Yes all other systems are reviewed and are negative PMFSH Past Medical History Medical History Sleep apnea Carpal tunnel syndrome Arthritis HTN (hypertension) Social History Social History Alcohol intake: never Advance Directives: No Advance Directives Information Provided: Yes Do you have a plan to hurt others: No Plan Physical Exam ED Vital Signs: Vital Signs - 24 hr 03/30/24 10:28 03/30/24 13:33 03/30/24 13:53 Temperature 98.6 F 98.7 F 98.7 F Pulse Rate 110 H 91 91 Respiratory Rate 16 18 18 Blood Pressure 144/82 H 119/76 119/76 Pulse Oximetry 94 96 96 Oxygen Delivery Method Room Air Room Air Room Air BMI result Body Mass Index 31.2 Const General: cooperative, healthy appearing, comfortable, no acute distress, well developed, alert and awake Orientation/consciousness: patient oriented x3 [facility] Head: Yes normal to inspection, Yes No palpable skull fracture present, Yes normocephalic and Yes atraumatic Ears: hearing grossly normal bilaterally, external ears normal, TM's normal b ilaterally, TM normal on the right, TM normal on the left, EAC's normal, mastoids normal and no periauricular adenopathy Throat: Yes posterior oropharynx normal, Yes tonsils normal and Yes uvula midline Eyes General: appearance normal, both eyes and all related structures Neck Neck: Yes normal visual inspection, Yes full ROM, Yes no lymphadenopathy, Yes no meningeal signs, Yes trachea midline, Yes supple, No anterior neck swelling and No tender Chest Chest palpation & inspection: normal inspection of the chest and normal palpation of entire chest wall Resp Effort & Inspection: normal respiratory effort and able to speak in complete sentences Auscultation: clear to auscultation bilaterally Cardio Jugular venous distension: no JVD Heart sounds: S1 normal heart sound present and S2 normal heart sound present GI Inspection: Yes normal to inspection Palpation (GI): Soft to palpation, not firm, nontender, no guarding and not rigid General: Yes no CVA tenderness Back/Spine/Pelvis Back: no CVA tenderness and No back tenderness Skin General skin exam: no rashes or lesions noted, elasticity normal and turgor normal Neuro General: patient oriented x3, gait normal, tone normal, moves all extremities, Normal light touch and pain sensation, no meningeal signs, no focal motor deficits, CN's II-XI intact bilaterally and normal sensation to monofilament Extrem Other: Bilateral lower extremity negative for swelling, pitting edema, or calf tenderness General: Yes normal to inspection, Yes full ROM and Yes capillary refill normal Psych Appearance: grossly normal, well kempt and not disheveled Medical Decision Making Medical Decision Making MDM Narrative: 58 yold female with pmh of URI symptoms. SARS, strep, and chest xray ordered 1:41pm: Negative for pneumonia. SARs strep COVID negative. Patient has a URI. Not suspecting PE, myocardial infarction, CHF, cardiac tamponade, myocarditis, pericarditis, cardiac tamponade, or any other life-threatening etiology. Patient explained worrisome signs and informed to return to the ED immediately Differential Diagnosis Differential Diagnoses: The differential diagnosis associated with the presentation includes (Pneumonia, URI) Admission/Observation Consideration of admission/observation: Escalation of care including admission/observation considered Lab Data MDM Lab Attestation statement: I reviewed the patient's lab results. Labs: Lab Results 03/30/24 Range/Units 10:36 Influenza Type A (PCR) NEGATIVE (Negative) Influenza Type B (PCR) NEGATIVE (Negative) RSV RNA Qual (PCR) NEGATIVE (Negative) SARS-CoV-2 RNA (RT-PCR) NEGATIVE (Negative) S. pyogenes GrpA AZIZA Negative (Negative) Independent Interpretation I performed an independent interpretation of an: Plain X-Ray Radiology Impression Discussion of test interpretation with radiology: I have reviewed the radiologist's reading. Independent Historian Clinical information obtained from an independent historian. History obtained from or confirmed by: Other (Patient) External Record Review External record reviewed: Other (prior visit) Prescription Management I considered prescription management with: Other Discharge Plan Discharge Clinical Impression: Upper respiratory infection Patient Disposition: Home, Self-Care Instructions: Upper Respiratory Infection (ED) Additional Instructions: Recommend follow-up with primary care provider. Return to the ED immediately for any chest pain, shortness of breath, weakness, dizziness, calf pain, abdominal pain, or any other concerning symptoms. XR/XR chest 1V IMPRESSION: No active pulmonary disease. Electronically signed by: Jonathan Conley MD 03/30/2024 01:06 PM [facility] Prescriptions: New benzonatate 200 mg capsule 200 mg PO TID PRN (Reason: cough) Qty: 15 0RF No Action meloxicam 7.5 mg tablet 7.5 mg PO DAILY Qty: 14 0RF fluticasone propionate [Flonase Allergy Relief] 50 mcg/actuation spray,suspension 2 spray intranasal DAILY Qty: 16 0RF Rx Instructions: administer into each nostril loratadine [Claritin] 10 mg tablet 10 mg PO DAILY Qty: 30 0RF benzonatate 100 mg capsule 100 mg PO TID PRN (Reason: cough) Qty: 10 0RF tramadol 50 mg tablet 50 mg PO Q6H PRN (Reason: severe pain (scale score 7-10)) Qty: 12 0RF Stand Alone Forms: Work/School Release Interventions: ED Discharge Assessment Last Done: 03/30/24 13:53 Discharge Date/Time: 03/30/24 13:53 Print Language: Lithuanian
[2024-03-30 13:33] VITALS: BP 119/76; PULSE 91; RESP 18; TEMP 37.1; O2SAT 96
[2024-03-30 13:53] VITALS: BP 119/76; PULSE 91; RESP 18; TEMP 37.1; O2SAT 96
== END 2024-03-30 13:53 | disposition home or self-care (01) ==
PROVIDERS: Emergency Provider Emergency Medicine
DX: J06.9 Acute upper respiratory infection, unspecified (principal); R05.9 Cough, unspecified; R51.9 Headache, unspecified; I10 Essential (primary) hypertension; Z03.818 Encounter for observation for suspected exposure to other biological agents ruled out; Z79.899 Other long term (current) drug therapy
CPT/HCPCS: 0241U; 71045; 87651; 99283

== ENCOUNTER → 2024-03-30 11:19 | Outpatient (BNV) | payer MEDICAID, SELFPAY | PROVIDERS: Emergency Provider Emergency Medicine; Visit Provider Radiology Diagnostic Radiology | DX: R05.9 Cough, unspecified (principal) | CPT/HCPCS: 71045 ==

== ENCOUNTER 2024-05-02 11:09 | Emergency (ER) | payer MEDICAID, SELFPAY ==
--- NOTE | ~2024-05-02 | XR_ITS ---
CLINICAL HISTORY: cough 2 view chest x-ray. Comparison: CR/NH/SR - XR CHEST 1V - 03/30/24 11:35 EST CR/NH/SR - XR CHEST 2V - 02/09/23 00:48 EDT Findings: Normal lung volumes. Lungs are clear. No pneumothorax or pleural effusion. Heart size normal. No passive venous congestion. No midline shift or tracheal deviation. No acute fracture. Impression: 1. No acute cardiopulmonary disease. This document has been electronically signed by: Jose Alfredo Ortiz MD on 05/02/2024 12:26:32
[2024-05-02 11:21] VITALS: BP 151/88; PULSE 100; RESP 19; TEMP 36.6; O2SAT 96; BMI 31.2
--- NOTE | 2024-05-02 11:21 | ED.GENADULT ---
HPI - General Adult General Chief complaint: Upper Respiratory Symptoms Stated complaint: cough Time Seen by Provider: 05/02/24 12:16 Source: patient Mode of arrival: ambulatory Limitations: no limitations History of Present Illness ED Provider: Kennedi Bello NP HPI narrative: Patient is a 58-year-old female who presents emergency department for evaluation where she was seen about 1 month ago she was experiencing a persistent cough. She states the cough never truly improve but did get slightly better. Began worsening again over the past 2 weeks, does admit to having postnasal drip associated with this. Yesterday she began with nasal congestion and rhinorrhea and as well as a headache today. Denies fevers, chills, dizziness, neck pain, neck stiffness, chest pain, shortness of breath, difficulty breathing, sore throat, nausea, vomiting, abdominal pain, numbness or tingling of the extremities, genitourinary symptoms. Related Data Previous Rx's ?Medication ?Instructions ?Recorded meloxicam 7.5 mg tablet 7.5 mg PO DAILY #14 tabs 10/22/20 fluticasone propionate 50 2 spray intranasal DAILY #16 grams 12/18/21 mcg/actuation nasal spray,suspension (Flonase Allergy Relief) loratadine 10 mg tablet (Claritin) 10 mg PO DAILY #30 tabs 12/18/21 benzonatate 100 mg capsule 100 mg PO TID PRN cough #10 caps 02/09/23 tramadol 50 mg tablet 50 mg PO Q6H PRN severe pain 02/13/23 (scale score 7-10) #12 tabs benzonatate 200 mg capsule 200 mg PO TID PRN cough #15 caps 03/30/24 hydrocodone-homatropine 5 mg-1.5 5 ml PO Q6H PRN cough 3 days #60 mL 03/31/24 mg/5 mL (5 mL) oral syrup (Hycodan) fluticasone propionate 50 1 spray intranasal DAILY #16 grams 05/02/24 mcg/actuation nasal spray,suspension (Flonase Allergy Relief) guaifenesin 200 mg/5 mL oral liquid 200 mg (5 mL) PO Q4H PRN cough 05/02/24 #118 mL Allergies Allergy/AdvReac Type Severity Reaction Status Date / Time No Known Allergies Allergy Verified 05/02/24 11:23 [No Known Allergies*] Review of Systems Review of Systems: Yes all other systems are reviewed and are negative ON LICENSE OF [facility] Past Medical History Attestation statement: The following information was validated with the patient. Source: old records reviewed Medical History Sleep apnea Carpal tunnel syndrome Arthritis HTN (hypertension) Social History Social History Alcohol intake: never Advance Directives: No Advance Directives Information Provided: Yes Do you have a plan to hurt others: No Plan Physical Exam ED Vital Signs: Vital Signs - 24 hr 05/02/24 11:21 Temperature 98 F Pulse Rate 100 Respiratory Rate 19 Blood Pressure 151/88 H Pulse Oximetry 96 Oxygen Delivery Method Room Air BMI result Body Mass Index 31.2 Appearance: Alert.?Oriented to person, place and time. No acute distress.?Normal affect. Eyes: Pupils equal, round and reactive to light.? ENT: TM normal bilaterally. Pharynx mildly erythematous. No hypertrophy. No exudates. Uvula midline. No trismus. No drooling. Bilateral nasal turbinates are pale and boggy.?? Neck: Normal inspection.? Neck supple.??No cervical adenopathy CVS: Heart sounds normal. Normal heart rate and rhythm.? Pulses normal.?? Respiratory: No respiratory distress.? Lung sounds clear to auscultation bilaterally?? Abdomen: Soft and non-tender. Normoactive bowel sounds. Skin: Skin warm and dry.? Normal skin color.? ? Extremities: No lower extremity edema.? Neuro: Moves all extremities spontaneously. Sensation intact bilaterally. No motor deficits. Ambulates with normal steady gait. Course Course Course Narrative: This is a Rapid Medical Examination (RME) performed by Elisa Edward PA-C in triage. Full HPI, ROS, assessment and treatment plan per primary provider in the Main ED. 58 yo female w/ rhinorrhea, headache, and persistent cough. seen in ED 1 month ago for URI - reports continued cough. not taking nay OTC meds for cough. Plan: viral swabs, cxr Medical Decision Making Medical Decision Making MDM Narrative: Patient is a 50-year-old female presents emergency department for evaluation of viral type symptoms as per HPI. COVID-19 testing is positive. Influenza/RSV testing are negative. Chest x-ray is without consolidation infiltrate to suggest an acute pneumonia. She has findings on exam indicating persistent rhinitis with postnasal drip which I think may be attributing to the persistent cough that she was experiencing since her most recent respiratory illness in March of 2024, also discussed the cough that can be associated with bronchitis in the duration to be expected some may up to 6 weeks. Well-appearing, nontoxic, afebrile, no tachycardia or tachypnea/hypoxia. Speaking clear full sentences, ambulatory with steady gait. Sent prescription for Flonase nasal spray in addition to guaifenesin. Discussed conservative treatment including rest, hydration, Tylenol/ibuprofen as needed for fever and body aches, saline nasal spray, humidifier, [id number] cold medication. Advised to follow-up with primary care provider as needed, discussed reasons to return back to the emergency department. All questions were answered. Patient discharged home in stable condition. Differential Diagnosis Differential Diagnoses: The differential diagnosis associated with the presentation includes ( See narrative above) Admission/Observation Consideration of admission/observation: Escalation of care including admission/observation considered ( see narrative above) Lab Data MDM Lab Attestation statement: I reviewed the patient's lab results. ( see narrative above) Labs: Lab Results 05/02/24 Range/Units 11:27 Influenza Type A (PCR) NEGATIVE (Negative) Influenza Type B (PCR) NEGATIVE (Negative) RSV RNA Qual (PCR) NEGATIVE (Negative) SARS-CoV-2 RNA (RT-PCR) POSITIVE A (Negative) Independent Interpretation I performed an independent interpretation of an: Plain X-Ray (See narrative above) Radiology Impression Discussion of test interpretation with radiology: I have reviewed the radiologist's reading. Radiologist Impression: 2 view chest x-ray. Comparison: CR/OR/SR - XR CHEST 1V - 03/30/24 11:35 EST CR/OR/SR - XR CHEST 2V - 02/09/23 00:48 EDT Findings: Normal lung volumes. Lungs are clear. No pneumothorax or pleural effusion. Heart size normal. No passive venous congestion. No midline shift or tracheal deviation. No acute fracture. Impression: 1. No acute cardiopulmonary disease. External Record Review External record reviewed: Outpatient record Prescription Management I considered prescription management with: Pain Medication ( acetaminophen/ibuprofen) and Other (See narrative above) Discharge Plan Discharge Clinical Impression: COVID-19 Patient Disposition: Home, Self-Care Instructions: COVID-19 (Coronavirus Disease 2019) (ED) Prescriptions: New fluticasone propionate [Flonase Allergy Relief] 50 mcg/actuation spray,suspension 1 spray intranasal DAILY Qty: 16 0RF Rx Instructions: administer into each nostril guaifenesin 200 mg/5 mL liquid 200 mg PO Q4H PRN (Reason: cough) Qty: 118 0RF No Action meloxicam 7.5 mg tablet 7.5 mg PO DAILY Qty: 14 0RF fluticasone propionate [Flonase Allergy Relief] 50 mcg/actuation spray,suspension 2 spray intranasal DAILY Qty: 16 0RF Rx Instructions: administer into each nostril loratadine [Claritin] 10 mg tablet 10 mg PO DAILY Qty: 30 0RF benzonatate 200 mg capsule 200 mg PO TID PRN (Reason: cough) Qty: 15 0RF hydrocodone-homatropine [Hycodan] 5-1.5 mg/5 mL (5 mL) syrup 5 ml PO Q6H PRN (Reason: cough) 3 Days Qty: 60 0RF Rx Instructions: Partial Fill upon patient request. side effect is drowsiness. do not take while driving or at work benzonatate 100 mg capsule 100 mg PO TID PRN (Reason: cough) Qty: 10 0RF tramadol 50 mg tablet 50 mg PO Q6H PRN (Reason: severe pain (scale score 7-10)) Qty: 12 0RF Print Language: Guyanese
[2024-05-02 12:14] LABS: Influenza A PCR NEGATIVE (Negative); Influenza B PCR NEGATIVE (Negative); Resp Syncy Virus RNA Qual PCR NEGATIVE (Negative); SARS COV2 PCR INHOUSE POSITIVE (Negative)
[2024-05-02 13:04] VITALS: BP 151/88; PULSE 100; RESP 19; TEMP 36.6; O2SAT 96
== END 2024-05-02 13:04 | disposition home or self-care (01) ==
PROVIDERS: Physician Assistant Medical; Emergency Provider Emergency Medicine
DX: U07.1 COVID-19 (principal)
CPT/HCPCS: 0241U; 71046; 99282; 99283

== ENCOUNTER → 2024-05-02 11:23 | Outpatient (BNV) | payer MEDICAID, SELFPAY | PROVIDERS: Visit Provider Radiology Diagnostic Radiology | DX: R05.9 Cough, unspecified (principal) | CPT/HCPCS: 71046 ==

== ENCOUNTER 2024-06-02 10:14 | Emergency (ER) | payer MEDICAID, SELFPAY ==
--- NOTE | ~2024-06-02 | XR_ITS ---
EXAMINATION: XR CHEST CLINICAL INFORMATION: cough COMPARISON: 05/02/2024, 03/30/2024. TECHNIQUE: Frontal view of the chest was obtained. FINDINGS: The cardiac, hilar, and mediastinal contours are normal. The lungs are clear bilaterally. No pneumothorax or effusion. No focal osseous or soft tissue abnormality. Mild levoconvex thoracic scoliosis with mild degenerative spondylosis. XR/XR chest 1V IMPRESSION: No active pulmonary disease. Electronically signed by: Jonathan Conley MD 06/02/2024 01:24 PM [facility]
[2024-06-02 10:38] VITALS: BP 158/88; PULSE 98; RESP 20; TEMP 36.7; O2SAT 98; BMI 31.2
[2024-06-02 12:07] LABS: Influenza A PCR NEGATIVE (Negative); Influenza B PCR NEGATIVE (Negative); Resp Syncy Virus RNA Qual PCR NEGATIVE (Negative); SARS COV2 PCR INHOUSE NEGATIVE (Negative)
== END 2024-06-02 17:27 | disposition left against medical advice (07) ==
PROVIDERS: Emergency Provider Emergency Medicine Emergency Medical Services
DX: R05.9 Cough, unspecified (principal); R51.9 Headache, unspecified; R50.9 Fever, unspecified; Z03.818 Encounter for observation for suspected exposure to other biological agents ruled out; Z53.21 Procedure and treatment not carried out due to patient leaving prior to being seen by health care provider
CPT/HCPCS: 0241U; 71045; 99281

== ENCOUNTER → 2024-06-02 10:42 | Outpatient (BNV) | payer MEDICAID, SELFPAY | PROVIDERS: Visit Provider Radiology Diagnostic Radiology | DX: R05.9 Cough, unspecified (principal) | CPT/HCPCS: 71045 ==

== ENCOUNTER 2024-08-31 18:38 | Emergency (ER) | payer MEDICAID, SELFPAY ==
--- NOTE | ~2024-08-31 | CT_ITS ---
CLINICAL HISTORY: headache CT head without contrast Comparison: None Findings: Subcortical hypodensity in the bilateral parieto-occipital regions. No intra-axial mass, midline shift, hydrocephalus, or acute hemorrhage. Mucosal thickening throughout the paranasal sinuses. The orbits are within normal limits. There is no acute fracture. IMPRESSION: Subcortical hypodensity in the bilateral parieto-occipital regions. This could be artifact or posterior reversible encephalopathy syndrome (PRES). Recommend MRI for further evaluation. This document has been electronically signed by: Odalis Harris MD on 09/01/2024 00:41:22
[2024-08-31 18:57] VITALS: BP 174/83; PULSE 98; RESP 20; TEMP 36.2; O2SAT 99; BMI 31.2
--- NOTE | 2024-08-31 18:58 | ED_ITS ---
HPI - General Adult General Chief complaint: Headache Stated complaint: Pain in head, coughing Time Seen by Provider: 08/31/24 21:46 Source: patient and old records reviewed Mode of arrival: ambulatory Limitations: no limitations History of Present Illness ED Provider: LINDA JUDD narrative: 59 yo female with PMH of HTN on medications and fibromyalgia not on medications here with c/o URI symptoms since and she feels pain in the back of her neck and head. She has not had a fever. She did bend down over the weekend and felt a lot of pressure she also felt a pop. She describes a sensation on her R side of face but does not report it is numbness, weakness just weird starting at 1pm and lasting a few seconds. She has no pain with moving the neck. No neck trauma, no neck manipulation and chiropractor work. 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 Not on thinners She also notes on and off chest pain she has had is many times in the past - had some over the past few days as well - no recent travel or procedures. Pain is reproduceable MD complaint: headache Onset (ago): day(s) (5) Location: head Radiation: non-radiation Severity: moderate Quality: aching Pain Consistency: intermittent Relieving factors: none Exacerbating factors: none Associated symptoms: other (runny nose, cough) Treatments prior to arrival: none Related Data Previous Rx's ?Medication ?Instructions ?Recorded meloxicam 7.5 mg tablet 7.5 mg PO DAILY #14 tabs 10/22/20 fluticasone propionate 50 2 spray intranasal DAILY #16 grams 12/18/21 mcg/actuation nasal spray,suspension (Flonase Allergy Relief) loratadine 10 mg tablet (Claritin) 10 mg PO DAILY #30 tabs 12/18/21 benzonatate 100 mg capsule 100 mg PO TID PRN cough #10 caps 02/09/23 tramadol 50 mg tablet 50 mg PO Q6H PRN severe pain 02/13/23 (scale score 7-10) #12 tabs benzonatate 200 mg capsule 200 mg PO TID PRN cough #15 caps 03/30/24 hydrocodone-homatropine 5 mg-1.5 5 ml PO Q6H PRN cough 3 days #60 mL 03/31/24 mg/5 mL (5 mL) oral solution (Hycodan) fluticasone propionate 50 1 spray intranasal DAILY #16 grams 05/02/24 mcg/actuation nasal spray,suspension (Flonase Allergy Relief) guaifenesin 200 mg/5 mL oral liquid 200 mg (5 mL) PO Q4H PRN cough 05/02/24 #118 mL methocarbamol 750 mg tablet 750 mg PO BID PRN muscle spasm #20 08/31/24 tabs Allergies Allergy/AdvReac Type Severity Reaction Status Date / Time No Known Allergies Allergy Verified 08/31/24 18:59 [No Known Allergies*] Review of Systems 2 Review of Systems: Constitutional : No Fever, No Chills, No Fatigue ENT/Mouth : No sore throat, No Rhinorrhea Eyes: No Eye Pain, No Swelling, No Redness Cardiovascular : No Chest Pain, No SOB, No Dyspnea on Exertion Respiratory : No Cough, No Sputum Gastrointestinal : No Nausea, No Vomiting, No Diarrhea, No abdominal Pain Genitourinary : No Dysuria, No Urinary Frequency, No Hematuria, Musculoskeletal : No joint pain, No Myalgias, No Joint Swelling Skin : No Skin Lesions, No rash Neuro : No Weakness, No Numbness, No Dizziness, positive Headache All other systems reviewed and are negative [facility] Past Medical History Attestation statement: The following information was validated with the patient. Source: old records reviewed Medical History Sleep apnea Carpal tunnel syndrome Arthritis HTN (hypertension) Social History Social History Alcohol intake: never Smoked in Last 30 Days: No Advance Directives: No Advance Directives Information Provided: No Physical Exam ED Vital Signs: Vital Signs - 24 hr 08/31/24 18:57 08/31/24 21:31 09/01/24 00:28 Temperature 97.2 F 97.8 F 98.2 F Pulse Rate 98 85 84 Respiratory Rate 20 18 19 Blood Pressure 174/83 H 145/68 H 126/72 Pulse Oximetry 99 98 95 Oxygen Delivery Method Room Air Room Air Room Air BMI result Body Mass Index 31.2 Appearance: Alert. Oriented X3. No acute distress. Eyes: Pupils equal, round and reactive to light. ENT: Pharynx normal. TMs normal Neck: Normal inspection. Neck supple. no meningeal signs CVS: Normal heart rate and rhythm. Pulses normal. Respiratory: No respiratory distress. Breath sounds normal. Abdomen: Soft and nontender. Skin: Skin warm and dry. Normal skin color. Normal skin turgor. Extremities: No lower extremity edema. No calf ttp Neuro: Oriented X 3. No motor deficit. No sensory deficit. CN2-12 intact Course Course Course Narrative: RME performed by Nessa Kiran PA-C. Patient is a 59 year old assigned female at presenting to the emergency department with a headache. Patient states a week ago she coughed and felt something pop in her head. Patient states that ever since she continues to have pain in her head that is worse with coughing. Patient states that she is concerned she had a stroke. Detailed physical exam and review of systems are deferred to the primary substance abuse counselor. Labs ordered. Patient placed back in the waiting room pending room availability and results. Reevaluation(s) Reevaluation #1: 1247am - abnormal CT scan but she has no HTN and no seizures not altered I do not suspect PRES Medical Decision Making Medical Decision Making [facility] Narrative: 59 yo female with PMH of HTN on medications and fibromyalgia not on medications here with c/o headache since feeling a pop. She has no fevers, no sig WBC count, no meningeal signs doubt RN EMERGENCY ROOM infection. No trauma, started at rest, felt a pop but has no neuro deficits she is smiling and laughing I doubt she has RN EMERGENCY ROOM bleeding / SAH. Will obtain basic labs, EKG and trop given chest pain > 6 hours. She has no risk factors for VTE. She will need EKG, labs, troponin x 1, CT head for mass. Differential Diagnosis Differential Diagnoses: The differential diagnosis associated with the presentation includes atypical chest pain, tension headache, viral syndrome Admission/Observation Consideration of admission/observation: Escalation of care including admission/observation considered discussed with her CT scan results and how it doesn't match clinically but we would need MRI to see these areas that are there or artifact. She declines admission and states she wants to follow up with her PCP. told to come back at any time monitor herself for BP and confusion Lab Data [facility] Lab Attestation statement: I reviewed the patient's lab results. 08/31/24 20:19 05/19/25 20:19 Labs: Lab Results 08/31/24 Range/Units 20:19 WBC 11.9 H (4.8-10.8) X10*3/uL RBC 4.38 (4.20-5.50) X10*6/uL Hgb 12.4 (12.0-16.0) g/dl Hct 37.3 (37.0-47.0) % MCV 85.2 (80.0-98.0) fL MCH 28.3 (27.0-33.0) pg MCHC 33.2 (31.0-35.0) g/dl RDW 12.8 (11.0-16.0) % Plt Count 397 (160-400) X10*3/uL MPV 8.9 L (9.4-12.3) fL Immature Gran % (Auto) 0.7 H (0.0-0.4) % Neut % (Auto) 62.9 (45-73) % Lymph % (Auto) 29.1 (20-40) % [place] % (Auto) 6.3 (2-11) % Eos % (Auto) 0.3 (0-4) % Baso % (Auto) 0.7 (0-2) % Lymph # (Auto) 3.5 (1.2-4.9) X10*3/uL [place] # (Auto) 0.8 (0.1-1.2) X10*3/uL Eos # (Auto) 0.0 (0.0-0.4) X10*3/uL Baso # (Auto) 0.1 (0.0-0.2) X10*3/uL Abs Immat Gran (auto) 0.08 H (0.00-0.03) X10*3/uL Absolute Neuts (auto) 7.5 (2.0-8.3) x10*3/uL Absolute Nucleated RBC 0.000 (0.0-0.012) X10*3/uL Nucleated RBC % (auto) 0.0 (0.0-0.2) /100WBC PT 12.7 H (10.9-12.4) SEC INR 1.1 (0.9-1.1) Sodium 141 (135-145) mmol/L Potassium 3.4 (3.3-5.1) mmol/L Chloride 107 (96-108) mmol/L Carbon Dioxide 25 (22-29) mmol/L Anion Gap 12 (12-20) BUN 15 (9-16) mg/dL Creatinine 0.77 (0.5-1.4) mg/dL Estim Creat Clear Calc 70.0 Estimated GFR > 60 Random Glucose 145 H (60-115) mg/dL Calcium 9.1 (8.4-10.2) mg/dL Magnesium 2.0 (1.6-2.6) mg/dL Total Bilirubin 0.7 (0.0-1.0) mg/dL AST 32 H (5-31) U/L ALT 36 H (0-31) U/L Alkaline Phosphatase 172 H (39-117) U/L Troponin I High Sens < 2.7 (<3.5-17.0) ng/L Total Protein 7.5 (6.5-8.0) g/dL Albumin 4.2 (3.5-5.0) g/dL Influenza Type A (PCR) NEGATIVE (Negative) Influenza Type B (PCR) NEGATIVE (Negative) RSV RNA Qual (PCR) NEGATIVE (Negative) SARS-CoV-2 RNA (RT-PCR) NEGATIVE (Negative) Independent Interpretation I performed an independent interpretation of an: EKG and CT Scan (no ICH, artifact?) Interpretation: Rate: 85 Rhythm: NSR Weed: normal Normal P waves. Normal RUBEN. Normal QRS complex. ST T wave : inverted T waves V1, V2 qTC: 471 prior studies: t wave inversions old The study has been interpreted contemporaneously by me. . Radiology Impression Discussion of test interpretation with radiology: I have reviewed the radiologist's reading. External Record Review External record reviewed: Outpatient record Tests considered The following testing was considered but not selected: MRI patient declined Prescription Management I considered prescription management with: Pain Medication and Other Discharge Plan Discharge Clinical Impression: Tension headache Patient Disposition: Home, Self-Care Instructions: Tension Headache (ED) Additional Instructions: EKG labs normal negative for COVID, FLU, RSV CT head showed no tumor, no bleeding, no mass - there are nonspecific areas that need MRI to further evaluate - this was offered but declined. you can return at any time. follow up with your primary care doctor. return for confusion, blood pressure top number > 160s or increased pain, weakness, vision changes, fevers or any other concerns return for any worsening symptoms or concerns rest and stay hydrated Prescriptions: New methocarbamol 750 mg tablet 750 mg PO BID PRN (Reason: muscle spasm) Qty: 20 0RF No Action meloxicam 7.5 mg tablet 7.5 mg PO DAILY Qty: 14 0RF fluticasone propionate [Flonase Allergy Relief] 50 mcg/actuation spray,suspension 2 spray intranasal DAILY Qty: 16 0RF Rx Instructions: administer into each nostril loratadine [Claritin] 10 mg tablet 10 mg PO DAILY Qty: 30 0RF benzonatate 200 mg capsule 200 mg PO TID PRN (Reason: cough) Qty: 15 0RF hydrocodone-homatropine [Hycodan] 5-1.5 mg/5 mL (5 mL) syrup 5 ml PO Q6H PRN (Reason: cough) 3 Days Qty: 60 0RF Rx Instructions: Partial Fill upon patient request. side effect is drowsiness. do not take while driving or at work benzonatate 100 mg capsule 100 mg PO TID PRN (Reason: cough) Qty: 10 0RF tramadol 50 mg tablet 50 mg PO Q6H PRN (Reason: severe pain (scale score 7-10)) Qty: 12 0RF fluticasone propionate [Flonase Allergy Relief] 50 mcg/actuation spray,suspension 1 spray intranasal DAILY Qty: 16 0RF Rx Instructions: administer into each nostril guaifenesin 200 mg/5 mL liquid 200 mg PO Q4H PRN (Reason: cough) Qty: 118 0RF Stand Alone Forms: Work/School Release Print Language: Icelandic
[2024-08-31 20:23] LABS: MANUAL DIFF FLAG NO
[2024-08-31 20:25] LABS: Basophils Absolute Auto 0.1 X10*3/uL (0.0-0.2); Basophils Percent Auto 0.7 % (0-2); Eosinophils Percent Auto 0.3 % (0-4); Hematocrit 37.3 % (37.0-47.0); Hemoglobin 12.4 g/dl (12.0-16.0); Imm Gran Abs Auto 0.08 X10*3/uL (0.00-0.03); Imm Gran Pct Auto 0.7 % (0.0-0.4); Lymphocytes Absolute Auto 3.5 X10*3/uL (1.2-4.9); Lymphocytes Percent Auto 29.1 % (20-40); Mean Corpuscular HGB Conc 33.2 g/dl (31.0-35.0); Mean Corpuscular Hemoglobin 28.3 pg (27.0-33.0); Mean Corpuscular Volume 85.2 fL (80.0-98.0); Mean Platelet Volume 8.9 fL (9.4-12.3); Monocytes Absolute Auto 0.8 X10*3/uL (0.1-1.2); Monocytes Percent Auto 6.3 % (2-11); Neutrophils Absolute Auto 7.5 x10*3/uL (2.0-8.3); Neutrophils Percent Auto 62.9 % (45-73); Platelet Count 397 X10*3/uL (160-400); Red Blood Count 4.38 X10*6/uL (4.20-5.50); Red Cell Distribution Width 12.8 % (11.0-16.0); White Blood Count 11.9 X10*3/uL (4.8-10.8)
[2024-08-31 20:31] LABS: INTERNATIONAL NORM RATIO 1.1 (0.9-1.1); Prothrombin Time 12.7 SEC (10.9-12.4)
[2024-08-31 20:38] LABS: Alanine Aminotransferase 36 U/L (0-31); Albumin Level 4.2 g/dL (3.5-5.0); Alkaline Phosphatase 172 U/L (39-117); Anion Gap 12 (12-20); Aspartate Amino Transferase 32 U/L (5-31); Bilirubin Total 0.7 mg/dL (0.0-1.0); Blood Urea Nitrogen 15 mg/dL (9-16); Calcium 9.1 mg/dL (8.4-10.2); Carbon Dioxide 25 mmol/L (22-29); Chloride 107 mmol/L (96-108); Estimated Glomerular Filt Rate > 60; Glucose Random 145 mg/dL (60-115); Potassium 3.4 mmol/L (3.3-5.1); Sodium 141 mmol/L (135-145); Total Protein 7.5 g/dL (6.5-8.0)
[2024-08-31 21:01] LABS: Influenza A PCR NEGATIVE (Negative); Influenza B PCR NEGATIVE (Negative); Resp Syncy Virus RNA Qual PCR NEGATIVE (Negative); SARS COV2 PCR INHOUSE NEGATIVE (Negative)
[2024-08-31 21:31] VITALS: BP 145/68; PULSE 85; RESP 18; TEMP 36.6; O2SAT 98
--- NOTE | 2024-08-31 22:34 | ECG_ITS ---
Test Reason : CHEST PAIN Blood Pressure : */* mmHG Vent. Rate : 85 BPM Atrial Rate : 85 BPM P-R Int : 150 ms QRS Dur : 82 ms QT Int : 396 ms P-R-T Axes : 59 9 43 degrees QTcB Int : 471 ms Normal sinus rhythm Nonspecific T wave abnormality Prolonged QT Abnormal ECG When compared with ECG of 19-Feb-2023 00:46, No significant change was found Referred By: Brab Wolf Electronically Signed By: Edu Toscano
--- NOTE | 2024-08-31 22:40 | PC.NURSE ---
Patient is a 59 yo female who presents to the ED with a multitude of complaints. Started with cold-like symptoms with an assoc HUFF on with some fleeting right facial numbness. Also states has had intermittent chest pain. Alert and oriented. No neuro deficits noted. Lungs clear bilat. Respirations even and non-labored. Abdomen soft, distended, non-tender with positive bowel sounds. LE edema noted.
[2024-08-31 22:58] LABS: Troponin-I High Sensitivity < 2.7 ng/L (<3.5-17.0)
[2024-09-01 00:28] VITALS: BP 126/72; PULSE 84; RESP 19; TEMP 36.8; O2SAT 95
--- NOTE | 2024-09-01 01:40 | PC.NURSE ---
Reviewed discharge instructions with pt. pt verbalized understanding, no sign of distress. pt ambulated with a steady gait
[2024-09-01 02:00] VITALS: BP 126/72; PULSE 84; RESP 19; TEMP 36.8; O2SAT 95
== END 2024-09-01 02:01 | disposition home or self-care (01) ==
PROVIDERS: Physician Assistant Medical; Emergency Provider Emergency Medicine
DX: G44.209 Tension-type headache, unspecified, not intractable (principal); M54.2 Cervicalgia; R05.9 Cough, unspecified; Z03.818 Encounter for observation for suspected exposure to other biological agents ruled out; I10 Essential (primary) hypertension; Z79.899 Other long term (current) drug therapy
CPT/HCPCS: 0241U; 70450; 80053; 83735; 84484; 85025; 85610; 93005; 99284; 99285

== ENCOUNTER → 2024-08-31 21:46 | Outpatient (BNV) | payer MEDICAID, SELFPAY | PROVIDERS: Emergency Provider Emergency Medicine; Visit Provider Radiology Diagnostic Radiology | DX: G93.89 Other specified disorders of brain (principal) | CPT/HCPCS: 70450 ==

== ENCOUNTER → 2024-08-31 22:34 | Outpatient (BNV) | payer MEDICAID, SELFPAY | PROVIDERS: Emergency Provider Emergency Medicine; Visit Provider Internal Medicine Cardiovascular Disease | DX: R94.31 Abnormal electrocardiogram [ECG] [EKG] (principal); R07.9 Chest pain, unspecified | CPT/HCPCS: 93010 ==

== ENCOUNTER 2024-11-06 21:59 | Emergency (ER) | payer MEDICAID, SELFPAY ==
--- NOTE | ~2024-11-06 | XR_ITS ---
CLINICAL HISTORY: kristina knee pain acute on chronic 1. Four views of the left knee 2. Four views of the right knee Comparison: None provided Findings: No fractures or dislocations. No significant arthritic change or erosions. No joint effusion. No radiopaque foreign body. IMPRESSION: 1. No acute findings. This document has been electronically signed by: Jam Jerry MD on 11/07/2024 00:05:33
[2024-11-06 22:05] VITALS: BP 152/79; PULSE 97; RESP 16; TEMP 36.4; O2SAT 96; BMI 34.0
--- NOTE | 2024-11-06 23:28 | ED_ITS ---
HPI - Extremity Problem General Chief complaint: Extremity Problem Stated complaint: right & left knee pain Time Seen by Provider: 11/06/24 23:05 History of Present Illness ED Provider: JOSE F HPI Narrative: CHRONIC BILATERAL KNEE PAIN WORSE WITH WT BEARING. No acute injury reported Related Data Previous Rx's ?Medication ?Instructions ?Recorded meloxicam 7.5 mg tablet 7.5 mg PO DAILY #14 tabs 02/02 fluticasone propionate 50 2 spray intranasal DAILY #16 grams 12/18/21 mcg/actuation nasal spray,suspension (Flonase Allergy Relief) loratadine 10 mg tablet (Claritin) 10 mg PO DAILY #30 tabs 12/18/21 benzonatate 100 mg capsule 100 mg PO TID PRN cough #10 caps 02/09/23 tramadol 50 mg tablet 50 mg PO Q6H PRN severe pain 02/13/23 (scale score 7-10) #12 tabs benzonatate 200 mg capsule 200 mg PO TID PRN cough #15 caps 03/30/24 hydrocodone-homatropine 5 mg-1.5 5 ml PO Q6H PRN cough 3 days #60 mL 03/31/24 mg/5 mL (5 mL) oral solution (Hycodan) fluticasone propionate 50 1 spray intranasal DAILY #16 grams 05/02/24 mcg/actuation nasal spray,suspension (Flonase Allergy Relief) guaifenesin 200 mg/5 mL oral liquid 200 mg (5 mL) PO Q 4H PRN cough 05/02/24 #118 mL methocarbamol 750 mg tablet 750 mg PO BID PRN muscle s pasm #20 08/31/24 tabs Allergies Allergy/AdvReac Type Severity Reaction Status Date / Time No Known Allergies (No Known Allergy Verified 11/06/24 22:07 Allergies*) [facility] Past Medical History Medical History Sleep apnea Carpal tunnel syndrome Arthritis HTN (hypertension) Social History Social History Alcohol intake: never Smoked in Last 30 Days: No Use of substances other than those prescribed or required for medical reasons: No Advance Directives: No Advance Directives Information Provided: No Do you have a plan to hurt others: No Plan Physical Exam Exam: Exam: GENERAL: Well appearing. No apparent distress. Alert. MSK: No gross visualized extremity deformity. Walking without assistance Vital Signs: Vital Signs: Last Vital Signs Temp 98.1 F 11/06/24 23:43 Pulse 87 11/06/24 23:43 Resp 14 11/06/24 23:43 BP 141/76 H 11/06/24 23:43 Pulse Ox 99 11/06/24 23:43 O2 Del Method Room Air 11/06/24 23:43 BMI result Body Mass Index 34.0 Medications Administered Discontinued Medications Generic Name Dose Route Start Last Admin Trade Name Freq PRN Reason Stop Dose Admin Acetaminophen 975 mg 11/06/24 23:05 11/06/24 23:42 Acetaminophen 325 Mg Tablet PO 11/06/24 23:06 975 mg ONCE ONE Administration Medical Decision Making Medical Decision Making MDM Narrative: Medical Decision Makin-year-old female with atraumatic chronic bilateral knee pain. Bilateral knee x-rays without effusion bony injury arthritis or other actionable findings. Patient can follow up with Orthopedics if she desires there was no acute emergent medical condition to address. Patient ambulatory without assistanc Testing Interpreted Independently: Not Applicable Radiology or Lab testing Results Reviewed: X-ray reports reviewed Consults: Not Applicable Independent Historians/External Chart Reviews: Not Applicable Social Determinants of Health Impacting MDM/Planning: Not Applicable Discharge Plan Discharge Clinical Impression: Chronic knee pain Patient Disposition: Home, Self-Care Instructions: Knee Pain (ED) Additional Instructions: You have chronic pain of your knees. X-rays were done with no fracture or obvious explanation for your pain call Orthopedics if you continue to have pain you can take Tylenol daily as needed for pain or Voltaren diclofenac gel Prescriptions: No Action meloxicam 7.5 mg tablet 7.5 mg PO DAILY Qty: 14 0RF fluticasone propionate [Flonase Allergy Relief] 50 mcg/actuation spray,suspension 2 spray intranasal DAILY Qty: 16 0RF Rx Instructions: administer into each nostril loratadine [Claritin] 10 mg tablet 10 mg PO DAILY Qty: 30 0RF benzonatate 200 mg capsule 200 mg PO TID PRN (Reason: cough) Qty: 15 0RF hydrocodone-homatropine [Hycodan] 5-1.5 mg/5 mL (5 mL) syrup 5 ml PO Q6H PRN (Reason: cough) 3 Days Qty: 60 0RF Rx Instructions: Partial Fill upon patient request. side effect is drowsiness. do not take while driving or at work benzonatate 100 mg capsule 100 mg PO TID PRN (Reason: cough) Qty: 10 0RF tramadol 50 mg tablet 50 mg PO Q6H PRN (Reason: severe pain (scale score 7-10)) Qty: 12 0RF fluticasone propionate [Flonase Allergy Relief] 50 mcg/actuation spray,suspension 1 spray intranasal DAILY Qty: 16 0RF Rx Instructions: administer into each nostril guaifenesin 200 mg/5 mL liquid 200 mg PO Q4H PRN (Reason: cough) Qty: 118 0RF methocarbamol 750 mg tablet 750 mg PO BID PRN (Reason: muscle spasm) Qty: 20 0RF Referrals: [facility] [Provider Group, Orthopedics] Perry Montelongo [Physician, Ear, Nose, Throat] Interventions: ED Discharge Assessment Last Done: 11/06/24 23:43 Discharge Date/Time: 11/06/24 23:47 Print Language: Guinean
[2024-11-06 23:43] VITALS: BP 141/76; PULSE 87; RESP 14; TEMP 36.7; O2SAT 99
== END 2024-11-06 23:47 | disposition home or self-care (01) ==
PROVIDERS: Emergency Provider Emergency Medicine
DX: M25.562 Pain in left knee (principal)
CPT/HCPCS: 73562; 99283; 99284

== ENCOUNTER → 2024-11-06 23:05 | Outpatient (BNV) | payer MEDICAID, SELFPAY | PROVIDERS: Emergency Provider Emergency Medicine; Visit Provider Radiology Diagnostic Radiology | DX: M25.562 Pain in left knee (principal); M25.561 Pain in right knee | CPT/HCPCS: 73562 ==

== ENCOUNTER 2024-12-12 21:23 | Emergency (ER) | payer MEDICAID, SELFPAY ==
--- NOTE | ~2024-12-12 | XR_ITS ---
CLINICAL HISTORY: fall pain Left wrist four views Comparison: None provided Findings: Comminuted nondisplaced distal radius fracture. Nondisplaced transverse ulnar styloid fracture. No other acute bony abnormality. Impression: Distal radial and ulnar fractures This document has been electronically signed by: Kameron Turk MD on 12/12/2024 22:30:42
--- NOTE | ~2024-12-12 | XR_ITS ---
CLINICAL HISTORY: fall pain Left elbow three views Comparison: None provided Findings: No acute fracture or dislocation noted. No significant joint effusion identified. No soft tissue foreign body. Impression: No acute bony abnormality This document has been electronically signed by: Kameron Turk MD on 12/12/2024 22:36:26
[2024-12-12 21:27] VITALS: BP 141/83; PULSE 98; RESP 16; TEMP 36.8; O2SAT 97; BMI 31.2
--- NOTE | 2024-12-12 22:13 | ED_ITS ---
HPI - Extremity Problem General Chief complaint: Extremity Injury, Upper Stated complaint: left arm inj Time Seen by Provider: 12/12/24 22:13 Source: patient Mode of arrival: ambulatory Limitations: no limitations History of Present Illness ED Provider: Dr. Gisella Riley HPI Narrative: 59-year-old female with history of hypertension presenting after a fall that occurred at about 9:00 a.m. this morning. States that she was moving and fell off the back of a [employer] truck, landing on her outstretched left arm. Did not hit her head or lose consciousness. Was unable to come to the hospital right away because she had finished moving. Denies other injury. Was ambulatory all day long and was even able to drive here. Describes numbness in her fingertips and severe swelling in her wrist. 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 Had been feeling well prior to the fall. Related Data Home Medications ?Medication ?Instructions ?Recorded ?Confirmed amlodipine 5 mg tablet 5 mg PO DAILY 12/15/24 cetirizine 10 mg tablet 10 mg PO DAILY 12/15/24 lisinopril 20 mg tablet 20 mg PO DAILY 12/15/24 rosuvastatin 20 mg tablet 20 mg PO DAILY 12/15/24 Previous Rx's ?Medication ?Instructions ?Recorded fluticasone propionate 50 1 spray intranasal DAILY #16 grams 05/02/24 mcg/actuation nasal spray,suspension (Flonase Allergy Relief) hydrocodone 5 mg-acetaminophen 325 1 tab PO Q8H PRN se karina pain 12/12/24 mg tablet (scale score 7-10) #10 tabs acetaminophen 325 mg capsule 325 mg PO Q8H PRN pain #2 0 caps 12/14/24 ibuprofen 600 mg tablet 600 mg PO Q8H PRN pain #20 t abs 12/14/24 Allergies Allergy/AdvReac Type Severity Reaction Status Date / Time No Known Allergies (No Known Allergy Verified 12/16/24 13:21 Allergies*) Review of Systems Review of Systems: as per HPI, full review of systems performed and negative but for the above mentioned pertinent positives and negatives. [facility] Past Medical History Medical History Sleep apnea Carpal tunnel syndrome Arthritis HTN (hypertension) Social History Social History (Reviewed 12/16/24 @ 20:47 by AYAZ Cheng Alcohol intake: never Physical Exam Exam: Exam: GENERAL: Uncomfortable-Appearing, conversant, mild distress due to pain. SKIN: Normal skin color for ethnicity, warm, dry, intact, no rashes noted. HEENT:? Normocephalic, atraumatic, no stridor, airway patent, no raccoon's eyes, no Kim sign, dentition intact, EOMI. NECK: Soft, supple, full ROM, midline structures nontender, no step-offs, no deformities, no lymphadenopathy. CHEST: Heart regular rate and rhythm, no murmurs, symmetric chest rise and fall, no crepitus. PULMONARY: Clear to auscultation bilaterally, no labored breathing, no wheezes/rhales/rhonchi. ABDOMINAL: Soft, nondistended, nontender, positive bowel sounds in all quadran ts. : Deferred. MUSCULOSKELETAL: Normal tone, left wrist swelling, TTP overlying the distal radius, neurovascularly intact distally, full function of the radial/median/ulnar nerves of the L hand. NEURO: Alert and oriented x3, CN II through XII intact, equal strength and sensation bilateral upper and lower extremities, no focal neurologic deficits.? PSYCHIATRIC: Anxious affect, fluid speech, good eye contact and appropriate demeanor. Vital Signs: Vital Signs: Last Vital Signs Temp 98.1 F 12/13/24 00:19 Pulse 97 12/13/24 00:19 Resp 16 12/13/24 00:19 BP 144/85 H 12/13/24 00:19 Pulse Ox 95 12/13/24 00:19 O2 Del Method Room Air 12/13/24 00:19 BMI result Body Mass Index 31.2 Medications Administered Discontinued Medications Generic Name Dose Route Start Last Admin Trade Name Freq PRN Reason Stop Dose Admin Ibuprofen 600 mg 12/12/24 23:09 12/12/24 23:51 Ibuprofen 600 Mg Tablet PO 12/12/24 23:10 600 mg ONCE ONE Administration Medical Decision Making Medical Decision Making MDM Narrative: Patient presents today with musculoskeletal injury. Differential diagnosis includes fracture, soft tissue contusion, ligamentous injury, tendon injury, infection, laceration, among others. Patient is neurovascularly intact upon arrival to the emergency department. Based on physical exam, appropriate imaging was ordered. L distal radius/ulna fractures. Splinte and placed in sling. Ortho follow up as discussed. Differential Diagnosis Differential Diagnoses: The differential diagnosis associated with the presentation includes (as above) Admission/Observation Consideration of admission/observation: Escalation of care including admission/observation considered Radiology Impression Discussion of test interpretation with radiology: I have reviewed the radiologist's reading. Prescription Management I considered prescription management with: Pain Medication Social Determinants Patient?s care significantly limited by Social Determinants of Health including: Problems related to primary support group Procedures Orthopedic Splinting/Casting Injury #1: Side: left Upper Extremity Injury Location: wrist Upper Extremity Immobilizer: sling/shoulder immobilizer and sugar tong splint (CSMs intact pre and post immobilization) Discharge Plan Discharge Clinical Impression: Closed fracture distal radius and ulna, Fall Patient Disposition: Home, Self-Care Instructions: Wrist Fracture in Adults (ED) Additional Instructions: Please follow-up with the orthopedic surgeon as soon as possible. Call for an appointment next week. Return to the emergency department with any new or worsening symptoms including: Worsening pain in your wrist despite pain medications, if the splint feels too tight and does not improve after loosening the Gerson wrap, numbness in her fingertips, any new symptom that concerns you. Keep your splint on until you see the orthopedic surgeon. Keep your sling on if you are up moving around. Prescriptions: New hydrocodone-acetaminophen 5-325 mg tablet 1 tab PO Q8H PRN (Reason: severe pain (scale score 7-10)) Qty: 10 0RF Rx Instructions: Partial Fill upon patient request. No Action fluticasone propionate [Flonase Allergy Relief] 50 mcg/actuation spray,suspension 1 spray intranasal DAILY Qty: 16 0RF Rx Instructions: administer into each nostril acetaminophen 325 mg capsule 325 mg PO Q8H PRN (Reason: pain) Qty: 20 0RF ibuprofen 600 mg tablet 600 mg PO Q8H PRN (Reason: pain) Qty: 20 0RF cetirizine 10 mg tablet 10 mg PO DAILY lisinopril 20 mg tablet 20 mg PO DAILY amlodipine 5 mg tablet 5 mg PO DAILY rosuvastatin 20 mg tablet 20 mg PO DAILY Referrals: [facility] Orthopedic Surgeons [Provider Group, Orthopedics] - 1 week Clinical Impression: Closed fracture distal radius and ulna Interventions: ED Discharge Assessment Last Done: 12/13/24 00:19 Discharge Date/Time: 12/13/24 00:19 Print Language: Turkmen
--- OUTSIDE RECORDS SUMMARY | 2024-12-12 22:34 | XMS_ITS | Clinical Summary ---
Author Organization [facility] Address [address] [place] [address] Care Team Providers Care Crystal Gazer Name Role Phone Unavailable Primary Care Provider Unavailabl e Encounters Date Type Department Care Team Description 11/03/2024 Population Health Risk Score Critical Access Hospital Care [facility] ([facility]) Department [address] [place] [id number] Provider, Population Health Generic from Last 3 Months Social History Tobacco Use Types Packs/Day Years Used Date Smoking Tobacco: Never Assessed Comments Unknown Sex and Gender Information Value Date Recorded Sex Assigned at Not on file Legal Sex Female 9:31 PM EDT Gender Identity Not on file Sexual Orientation Not on file Plan of Treatment Health Maintenance Due Date Last Done Comments CT Colonography 1965 Colonoscopy 1965 Colorectal Cancer Screening 1965 Depression Screening 1965 FIT DNA/Cologuard 1965 FIT 1965 FOBT 1965 Lipid Panel 1965 SDOH Screening 1965 Sigmoidoscopy 1965 Disability Screening 1965 Alcohol/Substance Use Screening 1977 Tobacco Screening 1977 Hepatitis C Screening 07/08/1983 Pap Smear 1986 Cervical Cancer Screening 07/08/1995 HPV/Cotest 07/08/1995 Mammogram 2005 Pneumococcal Vaccine: 50+ Years (1 of 1 - PCV) 07/08/2015 Zoster Vaccines (1 of 2) 07/08/2015 COVID-19 Vaccine (2 - 2023-2 5 season) 2023 11/02/2021 Influenza Vaccine (#1) 2024 , 04/25/2018 DTaP/Tdap/Td Vaccines (2 - T d or Tdap) 11/25/2028 11/25/2018 RSV Patients and Patients Aged 60 years or older (1 - 1-dose 75+ series) 2040 HIV Screening Completed 11/25/2018 Hepatitis A Vaccines Aged Out 11/14/2021, 02/08/2020 No longer eligible based on patient's age to complete this topic Hepatitis B Vaccines Completed 02/28/2023, 02/08/2020, 01/04/2020 HIB Vaccines Aged Out No longer eligi ble based on patient's age to complete this topic HPV Vaccines Aged Out No longer eligi ble based on patient's age to complete this topic IPV Vaccines Aged Out No longer eligi ble based on patient's age to complete this topic Meningococcal B Vaccine Aged Out No l onger eligible based on patient's age to complete this topic Meningococcal Vaccine Aged Out No petty jermaine eligible based on patient's age to complete this topic RSV under 20 months Aged Out No longe r eligible based on patient's age to complete this topic Rotavirus Vaccines Aged Out No longer eligible based on patient's age to complete this topic
--- OUTSIDE RECORDS SUMMARY | 2024-12-12 22:34 | XMS_ITS | Clinical Summary ---
Author Organization [facility] Address [address] [place] [address] Care Team Providers Care Mechanical Product Design Engineer Name Role Phone Akira Bedoya PA-C Primary Care Provider + [phone] Source Comments PLEASE NOTE, if this patient is a minor, it may be UNLAWFUL to discuss sensitive information that is contained in these records (such as FAMILY PLANNING, MENTAL HEALTH or SUBSTANCE ABUSE) with the minor patient's parent or other person without the patient's specific authorization.[facility] Allergies No known active allergies Medications miscellaneous medical supply miscIndication s:Bilateral carpal tunnel syndrome by miscellaneous route once daily Bilateral hand/wrist splints. Wear nightly. Dx: G56.03 1 Each 10/23/19 19 Active PURELAX 17 gram/dose powderIndicati ons:Constipati on, chronic TAKE 17 G BY MOUTH ONCE DAILY NEEDED (CONSTIPATION) 238 g 3 09/26/19 21 Active blood pressure monitorIndicat ions:Hypertens ion, essential Use to check blood pressure daily and as needed. Dx: I10 LOS: 99 Meds: lisinopril Pt needs automatic blood pressure monitor because it is extremely difficult to obtain a manual blood pressure on self. Additionally, pt is not medically trained to use a stethoscope or how to read a sphygmometer. 1 Kit 11/11/19 21 Active compress.stock ing,knee,reg,m edIndications: Leg swelling One (1) pair of compression socks 15-20 mmHg. Wear daily; do not sleep with socks. Dx: I89 LOS: 99 2 Each 1 11/11/19 21 Active acetaminophen (TYLENOL) 500 mg tabletIndicati ons:Chronic midline low back pain with left-sided sciatica TAKE 2 TABS EVERY 8 HOURS FOR PAIN 60 Tablet 1 06/01/19 22 Active gabapentin (NEURONTIN) 300 mg capsuleIndicat ions:Vasomotor symptoms due to menopause,Fibr omyalgia Take 1 Capsule by mouth daily. 30 Capsule 3 10/28/19 24 Active valACYclovir (VALTREX) 1 gram tabletIndicati ons:PCR DNA positive for HSV1 Take 1 Tablet by mouth once daily take for 5 days 5 Tablet 2 01/07/20 24 Active famotidine (PEPCID) 20 mg tabletIndicati ons:Heartburn TAKE 1 TABLET BY MOUTH 2 TIMES DAILY NEEDED FOR HEARTBURN. 180 Tablet 1 06/19/19 25 Active lisinopriL 20 mg tabletIndicati ons:Hypertensi on, essential TAKE 1 TABLET BY MOUTH EVERY DAY 90 Tablet 2 07/30/19 25 Active rosuvastatin (CRESTOR) 20 mg tabletIndicati ons:Hypertrigl yceridemia TAKE 1 TABLET BY MOUTH EVERY DAY 90 Tablet 1 09/04/19 25 Active cetirizine (ZYRTEC) 10 mg tabletIndicati ons:Watery eyes TAKE 1 TABLET BY MOUTH EVERY DAY 90 Tablet 1 12/08/19 25 Active amLODIPine (NORVASC) 5 mg tabletIndicati ons:Hypertensi on, essential TAKE 1 TABLET BY MOUTH EVERY DAY 90 Tablet 1 12/08/19 25 Active naproxen (NAPROSYN) 500 mg tabletIndicati ons:Nonintract able headache, unspecified chronicity pattern, unspecified headache type TAKE 1 TABLET BY MOUTH TWICE A DAY WITH A MEAL 180 Tablet 12/11/19 25 Active cetirizine (ZYRTEC) 10 mg tabletIndicati ons:Watery eyes TAKE 1 TABLET BY MOUTH EVERY DAY 90 Tablet 1 02/25/20 24 2024 Discontinued amLODIPine (NORVASC) 5 mg tabletIndicati ons:Hypertensi on, essential TAKE 1 TABLET BY MOUTH EVERY DAY 90 Tablet 1 05/29/19 25 2024 Discontinued naproxen (NAPROSYN) 500 mg tabletIndicati ons:Nonintract able headache, unspecified chronicity pattern, unspecified headache type Take 1 Tablet by mouth 2 (two) times daily with a meal. 180 Tablet 09/11/19 25 2024 Discontinued Active Problems Problem Noted Date Diagnosed Date Increased endometrial stripe thickness 3 Overview (03/26/2023): 03/26/23 Pelvic US Pelvic US Impression: Heterogenous thickening of endometrial stripe with cystic changes measuring at least 0.8 cm, possibly up to 1.9 cm in thickness with ill-defined margins at myometrial interface. While sequelae of adenomyosis could have similar appearance, tissue sampling recommended to exclude endometrial hyperplasia or malignancy. Normal ovaries. 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 Vitamin D deficiency 11/26/2018 Hypertriglyceridemia 11/26/2018 Bilateral carpal tunnel syndrome 07/25/2018 Leukocytosis 07/21/2014 Thrombocytosis 07/21/2014 Family history of abdominal aortic aneurysm 11/2014 Aortic ectasia, abdominal ([facility] V24) 07/22/19 15 S/P tubal ligation 06/28/2014 Hypertension, essential 01/08/2014 Heartburn 01/08/2014 Constipation, chronic 01/08/2014 Disturbance in sleep behavior 01/08/2014 Fibromyalgia 01/08/2014 Immunizations Immunization Administration Dates Next Due Flu, Preservative Free 01/08/2020,04/25/2018 HEP A-HEP B ([facility]) 02/08/2020 Hep A, adult 11/14/2021 Hep B,adult,adjuvanted (HEPLISAV) 02/28/2023, MMR (MMR II/Priorix) 02/17/2020,01/08/2020 PFIZER COVSelectica VACCINE, PURPLE CAP, 12+ 11/02/2021 TDAP 11/25/2018 Family History Medical History Relation Name Comments No Known Problems Brother 1 No Known Problems Brother 2 No Known Problems Daughter Cancer Father stomach Heart Problems Mother bypass Hypertension Sister 1 Hypertension Sister 2 No Known Problems Sister 3 No Known Problems Sister 4 Depression Sister 5 bipolar disorde r No Known Problems Son 1 No Known Problems Son 2 Relation Name Status Comments Brother 1 Alive Brother 2 Alive Daughter Alive Father Mother Sister 1 Alive Sister 2 Alive Sister 3 Alive Sister 4 Alive Sister 5 Alive Son 1 Alive Son 2 Alive Social History Tobacco Use Types Packs/Day Years Used Date Smoking Tobacco: Never Smokeless Tobacco: Never Tobacco Cessation:Counseling Given: Not Answered Alcohol Use Standard Drinks/Week Comments No 0 (1 standard drink = 0.6 oz pur e alcohol) Social Connections Answer Date Recorded Connectedness 0 11/13/2019 Financial Resource Strain Answer Date R ecorded Financial Resource Strain 0 2019 Stress Answer Date Recorded Stress 0 11/13/2019 Physical Activity Answer Date Recorded Physical Activity 0 12/02/2018 Food Insecurity Answer Date Recorded Food 0 11/13/2019 Transportation Needs Answer Date Record ed Transportation 0 11/13/2019 Housing Stability Answer Date Recorded Housing 0 11/13/2019 Safety and Environment Answer Date Nick rded Safety 0 09/09/2020 Utilities Answer Date Recorded Utilities 0 11/13/2019 Employment Answer Date Recorded Stress 0 11/13/2019 Comments No Sex and Gender Information Value Date Recorded Sex Assigned at Female 11/08/2017 8:40 AM PDT Legal Sex Female 11:36 AM PDT Gender Identity Female 11/08/2017 8:40 AM PDT Sexual Orientation Don't know 11/08/2017 8: 40 AM PDT Occupation Industry Job Start Date Job End Date Not on file Not on file Not on file Not on file Last Filed Vital Signs Vital Sign Reading Time Taken Comments Blood Pressure 114/77 06/04/2024 1:17 PM EST Pulse 96 06/04/2024 1:17 PM EST Temperature 37.2 C (98.9 F) 06/04/2024 1:17 PM EST Respiratory Rate 16 06/04/2024 1:17 PM EST Oxygen Saturation 97% 09/10/2023 2:49 PM EDT Inhaled Oxygen Concentration - - Weight 76.2 kg (168 lb) 06/04/2024 1:17 PM EST Height 149.9 cm (4' 11 ) 09/10/2023 2:49 PM EDT Body Mass Index 33.93 09/10/2023 2:49 PM EDT Plan of Treatment Health Maintenance Due Date Last Done Comments Anxiety Screening 1965 HPV Screening 1965 Pap + HPV [address] Colonography 2010 Colonoscopy 2010 Colorectal Cancer Screening 2010 FIT/gFOBT 2010 Fecal DNA 2010 Flexible Sigmoidoscopy 2010 Imm-Pneumococcal 50+ (1 of 1 - PCV) 07/08/2015 Imm-Hepatitis A (3 of 3 - Hep A Twinrix risk 3-dose series) 04/16/2022 11/14/2021, 02/08/2020 Cervical Cancer Screening 12/17/2022 Pap Smear 12/17/2022 12/18/2019 [id number] ( - season) 2023 11/23/2021, 11/02/2021 Alcohol and Drug Screen 04/15/2024 09/10/19 24, 02/28/2023, 08/02/2021, Additional history exists Depression Annual Screen 04/15/2024 09/10/2023 Breast Cancer Screening (Mammogram) 05/22/2024 05/22/2023, 01/18/2021, 09/10/2013 Annual Wellness (Adult): Indicated (All Coverage) 09/09/2024 09/10/2023, 02/02/2020, 11/25/2018, Additional history exists Diabetes Screening 09/09/2024 09/10/2023, 1 06/04/2021, 04/03/2022, Additional history exists Lipid Screening 09/09/2024 09/10/2023, 12, 02/03/2020, Additional history exists Imm-Influenza (#1) 2024 01/08/2020, 04/25/2018 Imm-Zoster, Recombinant (1 of 2) 2025 Postponed from 07/08/2015 (Not appropriate at this time) Imm-DTaP/Tdap/Td (2 - Td or Tdap) 11/25/2028 11/25/2018 HIV Screening Completed 11/25/2018 Hepatitis C Screening Completed 02/03/2020, 015 Imm-Hepatitis B Completed 02/28/2023, 01/14, 01/04/2020 Cervical Ablation/Cold-Knife Conization Discontinued Cervical Cryotherapy Discontinued Colposcopy Discontinued Endometrial Biopsy Discontinued Excision/Leep Discontinued HPV Genotyping Discontinued Vaginal Pap Discontinued Vulvoscopy Discontinued Goals Goal Patient Goal Type Associated Problems Recent Progress Patient-Stated? Author Blood Pressure < 140/90 Blood Pressure Hypertension, essential 114/77( 025 1:17 PM EST) Terrell Porras, PharmD Procedures Procedure Name Priority Date/Time Associated Diagnosis Comments COMPREHENSIVE METABOLIC PANEL Routine 09/10/2023 3:41 PM EDT Encounter for annual physical exam LIPID PANEL Routine 09/10/2023 3:41 PM EDT Hypertriglyceridemia HISTORIC MAMMOGRAM 05/22/2023 3: 00 AM EST HEPATITIS A,B,C PANEL Routine 02/03/2020 11:00 AM EDT Urinary frequency PAP, LIQUID BASED Routine 12/18/2019 1:5 4 PM EDT Encounter for gynecological examination (general) (routine) without abnormal findings ANTIBODY HIV-1&HIV-2 SINGLE RESULT Routine 11/25/2018 4:38 PM EDT Screening for viral disease from Last 3 Months or Most Recently Relevant to Health Maintenance Results * (ABNORMAL) LIPID PANEL (09/10/2023 3:41 PM EDT) CHOLESTEROL, TOTAL 130 <200 mg/dL [facility] HDL CHOLESTEROL 43(L) > OR = 50 mg/dL [facility] TRIGLYCERIDES 173(H) <150 mg/dL [facility] LDL-CHOLESTEROL 62 99 mg/dL (calc) [facility] Comment: Reference range: <100 Desirable range <100 mg/dL for primary prevention; <70 mg/dL for patients with CHD or diabetic patients with > or = 2 CHD risk factors. LDL-C is now calculated using the Manuel calculation, which is a validated novel method providing better accuracy than the Friedewald equation in the estimation of LDL-C. Alirio SS et al. REJI. 2013;310(19): 5253-1950 (http://education.[employer]ang[employer]/faq/KEQ240) CHOL/HDLC RATIO 3.0 <5.0 (calc) [facility] NON-HDL CHOLESTEROL 87 <130 mg/dL (calc) [facility] Comment: For patients with diabetes plus 1 major ASCVD risk factor, treating to a non-HDL-C goal of <100 mg/dL (LDL-C of <70 mg/dL) is considered a therapeutic option. Blood Blood / Unknown 09/10/2023 3 :41 PM EDT 09/10/2023 3:42 PM EDT Narrative [facility] - 09/11/2023 5:37 AM EDT FASTING:NO COLLECTION KIT GIVEN TO PATIENT. PATIENT ADVISED TO RETURN. Akira Bedoya PA-C LAB - BLOOD DRAW Final Resul t [facility] [address] [address], [facility] [address] [place] [phone] * (ABNORMAL) COMPREHENSIVE METABOLIC PANEL (09/10/2023 3:41 PM EDT) GLUCOSE 91 65 - 139 mg/dL [facility] Comment: Non-fasting reference interval UREA NITROGEN (BUN) 20 7 - 25 mg/dL [facility] CREATININE (blood) 0.85 0.50 - 1.03 mg/dL [facility] EGFR 79 > OR = 60 mL/min/1. 73m2 [facility] BUN/CREATININE RATIO SEE NOTE: 6 [facility] Comment: Not Reported: BUN and Creatinine are within reference range. SODIUM 137 135 - 146 mmol/L [facility] POTASSIUM 4.4 3.5 - 5.3 mmol/L [facility] CHLORIDE 101 98 - 110 mmol/L [facility] CARBON DIOXIDE 27 20 - 32 mmol/L [facility] CALCIUM 10.3 8.6 - 10.4 mg/dL [facility] PROTEIN, TOTAL 7.6 6.1 - 8.1 g/dL [facility] ALBUMIN 4.7 3.6 - 5.1 g/dL [facility] [place] [facility] GLOBULIN 2.9 1.9 - 3.7 g/dL (calc) [facility] [place] [facility] ALBUMIN/GLOBULI N RATIO 1.6 1.0 - 2.5 (calc) [facility] [place] [facility] BILIRUBIN, TOTAL 0.9 0.2 - 1.2 mg/dL [facility] ALKALINE PHOSPHATASE 132 37 - 153 U/L [facility] AST 30 10 - 35 U/L [facility] ALT 32(H) 6 - 29 U/L [facility] Blood Blood / Unknown 09/10/2023 3 :41 PM EDT 09/10/2023 3:42 PM EDT Narrative [facility] - 09/11/2023 5:37 AM EDT FASTING:NO COLLECTION KIT GIVEN TO PATIENT. PATIENT ADVISED TO RETURN. us Akira Bedoya PA-C LAB - BLOOD DRAW Final Resul t [facility] [address] [place] [id number], [facility] [address] [id number] * HISTORIC MAMMOGRAM (05/22/2023 3:00 AM EST) 05/22/2023 3:00 AM EST us Akira Bedoya PA-C IMG MAMMO Edited Resul t - Final * HEPATITIS A,B,C PANEL (02/03/2020 11:00 AM EDT) HEPATITIS B SURFACE ANTIBODY NEGATIVE NEGATIVE [facility] HEPATITIS B SURFACE ANTIGEN NEGATIVE NEGATIVE [facility] Comment: Over the counter supplements containing high doses of biotin may interfere with this assay. If interference is suspected, patients shoud be retested after refraining from biotin supplements for 72 hours. HEPATITIS C VIRUS DIAGNOSTIC NEGATIVE NEGATIVE [facility] HEPATITIS A ANTIBODY TOTAL NEGATIVE NEGATIVE [facility] Comment: Over the counter supplements containing high doses of biotin may interfere with this assay. If interference is suspected, patients shoud be retested after refraining from biotin supplements for 72 hours. HEPATITIS B CORE ANTIBODY NEGATIVE NEGATIVE [facility] 02/03/2020 11:0 0 AM EDT 02/03/2020 11:52 AM EDT Narrative [facility] - 02/03/2020 4:11 PM EDT [facility] [employer], a member of [address] [address] Vegetable Harvest Machine Operator - H[place] [id number] ORD# [id number] [facility] - BLOOD DRAW Edited Result - Final Performing Organization Address City/[facility]/ZIP Co de Phone Number [address] [address], * PAP, LIQUID BASED (12/18/2019 1:54 PM EDT) PAP normal NORMAL - ABNORMAL [facility] Swab of endocervix (specimen) Endocervical structure / Unknown 12/18/2019 1:54 PM EDT Impressions [facility] - 12/18/2019 1:54 PM EDT Negative for squamous intraepithelial lesion and malignancy High risk HPV assay: Negative Repeat 5 years [facility] - PATHOLOGY AND CYTOLOGY AMB ULATORY Final Result Performing Organization Address [facility]/ZIP Co de Phone Number [facility] [address] [address], * HIV-1 & HIV-2 ANTIBODIES (11/25/2018 4:38 PM EDT) HIV 1 AND 2 ANTIBODY SCREEN NEGATIVE NEGATIVE [facility] Comment: This assay is a 4th generation assay allowing for earlier detection of HIV infection by detecting the presence of the HIV-1 p24 antigen as well as the traditional antibodies to HIV type 1 (including group O) and type 2. Use of a 4th generation assay is the current CDC recommendation for HIV screening. Blood specimen (specimen) Blood / Unknown 11/25/2018 4:38 PM EDT 11/25/2018 7:16 PM EDT Narrative [facility] - 11/25/2018 9:18 PM EDT [facility], a member of [address] [address] Vegetable Harvest Machine Operator - Hiral P[place] [id number] ORD# [id number] Lien [facility] MERCHANDISE SUPERVISOR LAB - BLOOD DRAW Final Result Performing Organization Address City/State/[facility] Co de Phone Number [facility] [address], from Last 3 Months or Most Recently Relevant to Health Maintenance Insurance [employer] Care Teams Mechanical Product Design Engineer Relationship Specialty Start Date End Date Akira Bedoya PA-C [address] [place] [address] PCP - General FAMILY MEDICINE[place] 10/04/21
[2024-12-13 00:18] VITALS: BP 144/85; PULSE 97; RESP 16; TEMP 36.7; O2SAT 95
[2024-12-13 00:19] VITALS: BP 144/85; PULSE 97; RESP 16; TEMP 36.7; O2SAT 95
== END 2024-12-13 00:19 | disposition home or self-care (01) ==
PROVIDERS: Emergency Provider Emergency Medicine; PCP Dentist General Practice
DX: S52.502A Unspecified fracture of the lower end of left radius, initial encounter for closed fracture (principal); M25.532 Pain in left wrist; X50.1XXA Overexertion from prolonged static or awkward postures, initial encounter; Y93.9 Activity, unspecified; Y92.9 Unspecified place or not applicable; Y99.8 Other external cause status
CPT/HCPCS: 29125; 73080; 73110; 99284

== ENCOUNTER → 2024-12-12 21:40 | Outpatient (BNV) | payer MEDICAID, SELFPAY | PROVIDERS: Emergency Provider Emergency Medicine; PCP Dentist General Practice; Visit Provider Radiology Diagnostic Radiology | DX: M25.522 Pain in left elbow (principal); S52.502A Unspecified fracture of the lower end of left radius, initial encounter for closed fracture; S52.602A Unspecified fracture of lower end of left ulna, initial encounter for closed fracture; W19.XXXA Unspecified fall, initial encounter | CPT/HCPCS: 73080; 73110 ==

== ENCOUNTER 2024-12-14 07:41 | Emergency (ER) | payer MEDICAID, SELFPAY ==
[2024-12-14 07:44] VITALS: BP 162/83; PULSE 96; RESP 18; TEMP 37; O2SAT 97; BMI 26.6
--- NOTE | 2024-12-14 08:20 | ED.GENADULT ---
HPI - General Adult General Chief complaint: Recheck/Abnormal Lab/Rx Stated complaint: cast feels tight Time Seen by Provider: 12/14/24 07:59 Source: patient, RN notes reviewed and old records reviewed Mode of arrival: ambulatory Limitations: no limitations History of Present Illness ED Provider: Irma HPI narrative: Patient is a 59-year-old female recently seen in this emergency department and diagnosed with distal radius and ulna fracture of left wrist and placed in the splint. Patient returns today complaining of ongoing pain and states that her splint feels tight. Reports intermittent tingling to her fingers. Has only been taking the hydrocodone-acetaminophen prescribed to her. Has not been using additional acetaminophen or ibuprofen. Has not been elevating her arm while at rest. Has been using sling intermittently, states she did not understand the discharge instructions. MD complaint: left wrist pain Related Data Previous Rx's ?Medication ?Instructions ?Recorded meloxicam 7.5 mg tablet 7.5 mg PO DAILY #14 tabs 10/22/20 fluticasone propionate 50 2 spray intranasal DAILY #16 grams 12/18/21 mcg/actuation nasal spray,suspension (Flonase Allergy Relief) loratadine 10 mg tablet (Claritin) 10 mg PO DAILY #30 tabs 12/18/21 benzonatate 100 mg capsule 100 mg PO TID PRN cough #10 caps 02/09/23 tramadol 50 mg tablet 50 mg PO Q6H PRN severe pain 02/13/23 (scale score 7-10) #12 tabs benzonatate 200 mg capsule 200 mg PO TID PRN cough #15 caps 03/30/24 hydrocodone-homatropine 5 mg-1.5 5 ml PO Q6H PRN cough 3 days #60 mL 03/31/24 mg/5 mL (5 mL) oral solution (Hycodan) fluticasone propionate 50 1 spray intranasal DAILY #16 grams 05/02/24 mcg/actuation nasal spray,suspension (Flonase Allergy Relief) guaifenesin 200 mg/5 mL oral liquid 200 mg (5 mL) PO Q4H PRN cough 05/02/24 #118 mL methocarbamol 750 mg tablet 750 mg PO BID PRN muscle spasm #20 08/31/24 tabs hydrocodone 5 mg-acetaminophen 325 1 tab PO Q8H PRN severe pain 12/12/24 mg tablet (scale score 7-10) #10 tabs acetaminophen 325 mg capsule 325 mg PO Q8H PRN pain #20 caps 12/14/24 ibuprofen 600 mg tablet 600 mg PO Q8H PRN pain #20 tabs 12/14/24 Allergies Allergy/AdvReac Type Severity Reaction Status Date / Time No Known Allergies (No Known Allergy Verified 12/14/24 07:47 Allergies*) Review of Systems Review of Systems: As per HPI Yes all other systems are reviewed and are negative Constitutional: Constitutional: Reports as per HPI [facility] Past Medical History Medical History Sleep apnea Carpal tunnel syndrome Arthritis HTN (hypertension) Social History Social History Alcohol intake: never Advance Directives: No Advance Directives Information Provided: No Physical Exam ED Vital Signs: Vital Signs - 24 hr 12/14/24 07:44 12/14/24 08:36 Temperature 98.6 F Pulse Rate 96 86 Respiratory Rate 18 18 Blood Pressure 162/83 H 125/54 L Pulse Oximetry 97 96 Oxygen Delivery Method Room Air Room Air BMI result Body Mass Index 26.6 Vital signs have been reviewed and appear to be correct. Blood pressure normal. Heart rate normal. Respiratory rate normal. Temperature normal. Oxygen saturation normal. Const General: cooperative, healthy appearing and no acute distress Orientation/consciousness: oriented to person, oriented to place, oriented to time and patient oriented x3 Limitations: no limitations [facility] Head: Yes normocephalic and Yes atraumatic Ears: external ears normal General nose exam: Normal external nose present Face and sinus: Yes face symmetric Mouth: oropharynx normal and moist mucous membranes Throat: Yes uvula midline Eyes Pupils: Equal, round and reactive pupils present Neck Neck: Yes normal visual inspection and Yes supple Resp Effort & Inspection: normal respiratory effort and able to speak in complete sentences Auscultation: clear to auscultation bilaterally Cardio Rate: regular rate Rhythm: regular rhythm Heart sounds: S1 normal heart sound present and S2 normal heart sound present GI Palpation (GI): Soft to palpation and nontender Auscultation: normoactive bowel sounds General: Yes no CVA tenderness Back/Spine/Pelvis Back: no CVA tenderness Skin General skin exam: elasticity normal and turgor normal Neuro General: oriented to person, oriented to place, oriented to time, patient oriented x3, moves all extremities, no focal motor deficits and CN's II-XI intact bilaterally Cranial nerves: Yes Equal, round and reactive pupils present Cognition (Neuro): normal cognition Extrem General: Yes full ROM, Yes no pedal edema and Yes no calf tenderness Left upper extremity: wrist (sugar tong splint to left wrist/forearm, 2+ radial pulse palpable) and hand Details: normal capillary refill, neuromotor exam normal, neurosensory exam normal, vascular exam Details: radial pulse present and normal capillary refill; not cool and no cyanosis and normal ROM of fingers Psych Mental Status: mental status grossly normal Affect: normal affect Thought process: Normal thought process present Medical Decision Making Medical Decision Making MDM Narrative: Patient is a 59-year-old female recently seen in this emergency department and diagnosed with distal radius and ulna fracture of left wrist and placed in the splint. On exam patient is awake, A+Ox3, VS WNL, afebrile, normal neurological exam without focal deficits, physical exam findings as above. Given reported symptoms and physical exam findings, initial differential includes but is not limited to neurovascular compromise r/t splint. Patient neurovascularly intact on physical exam, full ROM of fingers of left hand, 2+ radial pulse, capillary refill <3 seconds to all fingers of left hand. No evidence of neurovascular compromise. MELODIE wraps removed for assessment and new MELODIE wraps applied. Lengthy discussed had with patient regarding care for her injury. Advised keeping arm elevated while at rest, intermittent application of ice over splint, alternating Tylenol and ibuprofen in addition to the hydrocodone-acetaminophen that she was prescribed at prior visit. Discussed that she should be wearing the sling while standing or ambulating and can remove the sling while at rest. Instructed patient to contact orthopedic office tomorrow morning for follow-up appointment. Return precautions discussed. Patient verbalized understanding of and agreement with plan. Differential Diagnosis Differential Diagnoses: The differential diagnosis associated with the presentation includes As per MDM Admission/Observation Consideration of admission/observation: Escalation of care including admission/observation considered Patient would have been admitted to the hospital had their clinical presentation warranted hospital admission. External Record Review External record reviewed: Inpatient record, Office record and Outpatient record Prescription Management I considered prescription management with: Pain Medication Discharge Plan Discharge Clinical Impression: Closed fracture of distal radius and ulna Qualifiers: Encounter type: subsequent encounter Laterality: left Patient Disposition: Home, Self-Care Instructions: Arm Fracture in Adults (DC), Wrist Fracture in Adults (ED) Additional Instructions: You presented to the emergency department today for evaluation of the splint applied to your left arm after a recent wrist fracture. Your splint was adjusted and your wrist/hand are neurovascularly intact. We recommend that you wear the provided sling while standing/ambulating. While resting, elevate your arm. You should apply ice over the splint for 10-15 minutes at a time several times daily. Do not get the splint wet, do not remove the splint. We recommend that in addition to the hydrocodone-acetaminophen that you were prescribed, you alternate Tylenol and ibuprofen every 4. For example, when you wake up, take one hydrocodone-acetaminophen with one 325mg tablet of regular acetaminophen. Then 4 hours later, take 600mg ibuprofen, then 4 hours later take the hydrocodone-acetaminophen and additional acetaminophen. Call the orthopedic office tomorrow morning to schedule your follow up appointment. Return to the emergency department if you develop new numbness/tingling or change of color to your fingers. Example of medications: 8:00am Take one hydrocodone-acetaminophen and one 325mg acetaminophen 12:00 Take one 600mg ibuprofen 4:00pm Take one hydrocodone-acetaminophen and one 325mg acetaminophen Prescriptions: New acetaminophen 325 mg capsule 325 mg PO Q8H PRN (Reason: pain) Qty: 20 0RF ibuprofen 600 mg tablet 600 mg PO Q8H PRN (Reason: pain) Qty: 20 0RF No Action meloxicam 7.5 mg tablet 7.5 mg PO DAILY Qty: 14 0RF fluticasone propionate [Flonase Allergy Relief] 50 mcg/actuation spray,suspension 2 spray intranasal DAILY Qty: 16 0RF Rx Instructions: administer into each nostril loratadine [Claritin] 10 mg tablet 10 mg PO DAILY Qty: 30 0RF benzonatate 200 mg capsule 200 mg PO TID PRN (Reason: cough) Qty: 15 0RF hydrocodone-homatropine [Hycodan] 5-1.5 mg/5 mL (5 mL) syrup 5 ml PO Q6H PRN (Reason: cough) 3 Days Qty: 60 0RF Rx Instructions: Partial Fill upon patient request. side effect is drowsiness. do not take while driving or at work benzonatate 100 mg capsule 100 mg PO TID PRN (Reason: cough) Qty: 10 0RF tramadol 50 mg tablet 50 mg PO Q6H PRN (Reason: severe pain (scale score 7-10)) Qty: 12 0RF fluticasone propionate [Flonase Allergy Relief] 50 mcg/actuation spray,suspension 1 spray intranasal DAILY Qty: 16 0RF Rx Instructions: administer into each nostril guaifenesin 200 mg/5 mL liquid 200 mg PO Q4H PRN (Reason: cough) Qty: 118 0RF methocarbamol 750 mg tablet 750 mg PO BID PRN (Reason: muscle spasm) Qty: 20 0RF hydrocodone-acetaminophen 5-325 mg tablet 1 tab PO Q8H PRN (Reason: severe pain (scale score 7-10)) Qty: 10 0RF Rx Instructions: Partial Fill upon patient request. [place]: [facility] [place]Provider Group] Clinical Impression: Closed fracture of distal radius and ulna Print Language: Israeli
--- OUTSIDE RECORDS SUMMARY | 2024-12-14 08:29 | XMS_ITS | Clinical Summary ---
Author Organization [facility] Address [address] [place] [address] Care Team Providers Care Turbine Engineer Name Role Phone Akira Bedoya PA-C Primary Care Provider + [phone] Source Comments PLEASE NOTE, if this patient [...] or malignancy. Normal ovaries. - Referred to CREDIT CARD SPECIALIST (internal) Bilateral lower extremity edema 08/02/2021 Chronic [...] abdominal aortic aneurysm 11/2014 Aortic ectasia, abdominal ([facility] V24) 07/22/19 15 S/P tubal ligation 06/28/2014 Hypertension, essential 01/08/2014 Heartburn 01/08/2014 Constipation, chronic 01/08/2014 Disturbance in sleep behavior 01/08/2014 Fibromyalgia 01/08/2014 Immunizations Immunization Administration Dates Next Due Flu, Preservative Free 01/08/2020,04/25/2018 HEP A-HEP B ([facility]) 02/08/2020 Hep A, adult 11/14/2021 Hep B,adult,adjuvanted (HEPLISAV) 02/28/2023, MMR (MMR II/Priorix) 02/17/2020,01/08/2020 PFIZER COVOmniGuide VACCINE, PURPLE CAP, 12+ 11/02/2021 TDAP 11/25/2018 [...] Cancer Screening 12/17/2022 Pap Smear 12/17/2022 12/18/2019 [id number] ( - season) 2023 11/23/2021, 11/02/2021 Alcohol [...] PM EDT) CHOLESTEROL, TOTAL 130 <200 mg/dL [facility] HDL CHOLESTEROL 43(L) > OR = 50 mg/dL [facility] TRIGLYCERIDES 173(H) <150 mg/dL [facility] LDL-CHOLESTEROL 62 99 mg/dL (calc) [facility] Comment: Reference range: <100 Desirable range <100 mg/dL for primary prevention; <70 mg/dL for patients with CHD or diabetic patients with > or = 2 CHD risk factors. LDL-C is now calculated using the Manuel calculation, which is a validated novel method providing better accuracy than the Friedewald equation in the estimation of LDL-C. Alirio SS et al. REJI. 2013;310(19): 9989-2959 (http://education.Gyros.GoInformatics/faq/ATP838) CHOL/HDLC RATIO 3.0 <5.0 (calc) [facility] NON-HDL CHOLESTEROL 87 <130 mg/dL (calc) [facility] Comment: For patients with diabetes plus 1 major ASCVD risk factor, treating to a non-HDL-C goal of <100 mg/dL (LDL-C of <70 mg/dL) is considered a therapeutic option. Blood Blood / Unknown 09/10/2023 3 :41 PM EDT 09/10/2023 3:42 PM EDT Narrative [employer] [facility] - 09/11/2023 5:37 AM EDT FASTING:NO COLLECTION KIT GIVEN TO PATIENT. PATIENT ADVISED TO RETURN. Akira Bedoya PA-C LAB - BLOOD DRAW Final Resul t [employer] [facility] [address] [address], [facility] [address] [place] [id number] * (ABNORMAL) COMPREHENSIVE METABOLIC PANEL (09/10/2023 3:41 PM EDT) GLUCOSE 91 65 - 139 mg/dL [facility] Comment: Non-fasting reference interval UREA NITROGEN (BUN) 20 7 - 25 mg/dL [facility] CREATININE (blood) 0.85 0.50 - 1.03 mg/dL [facility] EGFR 79 > OR = 60 mL/min/1. 73m2 [facility] BUN/CREATININE RATIO SEE NOTE: 6 [facility] Comment: Not Reported: BUN and Creatinine are within reference range. SODIUM 137 135 - 146 mmol/L [facility] POTASSIUM 4.4 3.5 - 5.3 mmol/L [facility] CHLORIDE 101 98 - 110 mmol/L [facility] CARBON DIOXIDE 27 20 - 32 mmol/L [facility] CALCIUM 10.3 8.6 - 10.4 mg/dL [facility] PROTEIN, TOTAL 7.6 6.1 - 8.1 g/dL [facility] ALBUMIN 4.7 3.6 - 5.1 g/dL [facility] [place] [employer] GLOBULIN 2.9 1.9 - 3.7 g/dL (calc) [facility] [place] [employer] ALBUMIN/GLOBULI N RATIO 1.6 1.0 - 2.5 (calc) [facility] [place] [employer] BILIRUBIN, TOTAL 0.9 0.2 - 1.2 mg/dL [facility] ALKALINE PHOSPHATASE 132 37 - 153 U/L [facility] AST 30 10 - 35 U/L [facility] ALT 32(H) 6 - 29 U/L [facility] Blood Blood / Unknown 09/10/2023 3 :41 PM EDT 09/10/2023 3:42 PM EDT Narrative [facility] - 09/11/2023 5:37 AM EDT FASTING:NO COLLECTION KIT GIVEN TO PATIENT. PATIENT ADVISED TO RETURN. us Akira Bedoya PA-C LAB - BLOOD DRAW Final Resul t [employer] [address] [place] [id number], [facility] [address] [id number] * HISTORIC MAMMOGRAM (05/22/2023 3:00 AM EST) 05/22/2023 3:00 AM EST us Akira Bedoya PA-C IMG MAMMO Edited Resul t - Final * HEPATITIS A,B,C PANEL (02/03/2020 11:00 AM EDT) HEPATITIS B SURFACE ANTIBODY NEGATIVE NEGATIVE [facility] HEPATITIS B SURFACE ANTIGEN NEGATIVE NEGATIVE [facility] Comment: Over the counter supplements containing high doses of biotin may interfere with this assay. If interference is suspected, patients shoud be retested after refraining from biotin supplements for 72 hours. HEPATITIS C VIRUS DIAGNOSTIC NEGATIVE NEGATIVE [facility] HEPATITIS A ANTIBODY TOTAL NEGATIVE NEGATIVE [facility] Comment: Over the counter supplements containing high doses of biotin may interfere with this assay. If interference is suspected, patients shoud be retested after refraining from biotin supplements for 72 hours. HEPATITIS B CORE ANTIBODY NEGATIVE NEGATIVE [facility] 02/03/2020 11:0 0 AM EDT 02/03/2020 11:52 AM EDT Narrative [facility] - 02/03/2020 4:11 PM EDT [employer], a member of [address] [address] Ethics Manager - H[place] [id number] ORD# [id number] [facility] - BLOOD DRAW Edited Result - Final Performing Organization Address City/[facility]/ZIP Co de Phone Number [address] [address], * PAP, LIQUID BASED (12/18/2019 1:54 PM EDT) PAP normal NORMAL - ABNORMAL [facility] Swab of endocervix (specimen) Endocervical structure / Unknown 12/18/2019 1:54 PM EDT Impressions [facility] - 12/18/2019 1:54 PM EDT Negative for squamous intraepithelial lesion and malignancy High risk HPV assay: Negative Repeat 5 years [facility] - PATHOLOGY AND CYTOLOGY AMB ULATORY Final Result Performing Organization Address [facility]/ZIP Co de Phone Number [facility] [address] [address], * HIV-1 & HIV-2 ANTIBODIES (11/25/2018 4:38 PM EDT) HIV 1 AND 2 ANTIBODY SCREEN NEGATIVE NEGATIVE [facility] Comment: This assay is a [...] EDT 11/25/2018 7:16 PM EDT Narrative [facility] - 11/25/2018 9:18 PM EDT [employer] [facility], a member of [address] [address] Ethics Manager - Hiral [place] [id number] ORD# [id number] Lien [facility] [employer] SUPER[employer] LAB - BLOOD DRAW Final Result Performing Organization Address City/State/[facility] Co de Phone Number [facility] [address], from Last 3 Months or Most Recently Relevant to Health Maintenance Insurance [employer] Care Teams Turbine Engineer Relationship Specialty Start Date End Date Akira Bedoya PA-C [address] [place] [address] PCP - General [facility] [facility] 10/04/21
--- OUTSIDE RECORDS SUMMARY | 2024-12-14 08:29 | XMS_ITS | Clinical Summary ---
Author Organization [employer] [facility] Address [address] [place] [address] Care Team Providers Care Commercial Litigation Paralegal Name Role Phone Unavailable Primary Care Provider Unavailabl e Encounters Date Type Department Care Team Description 11/03/2024 Population Health Risk Score [facility] Care [facility] (C3) Department [address] [facility] [address] [place] [id number] Provider, Population Health Generic from Last 3 [...] of 2) 07/08/2015 COVID-19 Vaccine (2 - 2024-2 6 season) 2024 11/02/2021 Influenza Vaccine (#1) 2024 0, 04/25/2018 DTaP/Tdap/Td Vaccines (2 - T d [...]
[2024-12-14 08:36] VITALS: BP 125/54; PULSE 86; RESP 18; O2SAT 96
--- NOTE | 2024-12-14 09:15 | PC.NURSE ---
patient not in room for discharge paperwork
== END 2024-12-14 09:15 | disposition home or self-care (01) ==
PROVIDERS: Emergency Provider Emergency Medicine; PCP Dentist General Practice
DX: M25.532 Pain in left wrist (principal); S52.502D Unspecified fracture of the lower end of left radius, subsequent encounter for closed fracture with routine healing; X58.XXXD Exposure to other specified factors, subsequent encounter
CPT/HCPCS: 99283

== ENCOUNTER 2024-12-15 12:55 | Outpatient (REF) | payer MEDICAID, SELFPAY ==
--- NOTE | ~2024-12-15 | XR_ITS ---
EXAMINATION: XR WRIST, LEFT CLINICAL INFORMATION: M25.532 - Pain in left wrist COMPARISON: December 12, 2024 TECHNIQUE: PA, lateral, and oblique views of the left wrist. FINDINGS: Again seen is an intra-articular fracture involving the distal radius and a nondisplaced fracture the base of the ulnar styloid. There is increasing osteopenia in the region of the fractures consistent with early healing. There is no interval displacement of fragments when compared to the prior. XR/XR wrist LT min 3V IMPRESSION: Early signs of healing, distal radial and ulnar styloid fractures. Electronically signed by: Andrea Pandey MD 12/15/2024 04:41 PM EDT
--- OUTSIDE RECORDS SUMMARY | 2024-12-15 14:12 | XMS_ITS | Clinical Summary ---
Author Organization [facility] Address [address] [place] [address] Care Team Providers Care Linux Solaris Administrator Name Role Phone Akira Bedoya PA-C Primary Care Provider + [phone] Source Comments PLEASE NOTE, if this patient [...] or malignancy. Normal ovaries. - Referred to [facility]AGE [facility] ATTENDANT (internal) Bilateral lower extremity edema 08/02/2021 Chronic [...] abdominal aortic aneurysm 11/2014 Aortic ectasia, abdominal ([facility] V24) 07/22/19 15 S/P tubal ligation 06/28/2014 Hypertension, essential 01/08/2014 Heartburn 01/08/2014 Constipation, chronic 01/08/2014 Disturbance in sleep behavior 01/08/2014 Fibromyalgia 01/08/2014 Immunizations Immunization Administration Dates Next Due Flu, Preservative Free 01/08/2020,04/25/2018 HEP A-HEP B ([facility]) 02/08/2020 Hep A, adult 11/14/2021 Hep B,adult,adjuvanted (HEPLISAV) 02/28/2023, MMR (MMR II/Priorix) 02/17/2020,01/08/2020 [employer] VACCINE, PURPLE CAP, 12+ 11/02/2021 TDAP 11/25/2018 [...] Cancer Screening 12/17/2022 Pap Smear 12/17/2022 12/18/2019 Alcohol and Drug Screen 04/15/2024 09/10/19 24, 02/28/2023, 08/02/2021, Additional history exists Depression Annual Screen 04/15/2024 09/10/2023 Breast Cancer Screening (Mammogram) 05/22/2024 05/22/2023, 01/18/2021, 09/10/2013 Annual Wellness (Adult): Indicated (All Coverage) 09/09/2024 09/10/2023, 02/02/2020, 11/25/2018, Additional history exists Diabetes Screening 09/09/2024 09/10/2023, 1 06/04/2021, 04/03/2022, Additional history exists Lipid Screening 09/09/2024 09/10/2023, 03/16, 02/03/2020, Additional history exists Hdo-VNLIO-14 (3 - season) 2024 11/23/2021, 11/02/2021 Imm-Influenza (#1) 2024 01/08/2020, 04/25/2018 Imm-Zoster, Recombinant [...] PM EDT) CHOLESTEROL, TOTAL 130 <200 mg/dL [facility] HDL CHOLESTEROL 43(L) > OR = 50 mg/dL [facility] TRIGLYCERIDES 173(H) <150 mg/dL [facility] LDL-CHOLESTEROL 62 99 mg/dL (calc) [facility] Comment: Reference range: <100 Desirable range <100 mg/dL for primary prevention; <70 mg/dL for patients with CHD or diabetic patients with > or = 2 CHD risk factors. LDL-C is now calculated using the Manuel calculation, which is a validated novel method providing better accuracy than the Friedewald equation in the estimation of LDL-C. Alirio SS et al. REJI. 2013;310(19): 8804-5649 (http://education.FlowPay.InPlace/faq/FZF540) CHOL/HDLC RATIO 3.0 <5.0 (calc) [facility] NON-HDL CHOLESTEROL 87 <130 mg/dL (calc) [facility] Comment: For patients with diabetes plus 1 major ASCVD risk factor, treating to a non-HDL-C goal of <100 mg/dL (LDL-C of <70 mg/dL) is considered a therapeutic option. Blood Blood / Unknown 09/10/2023 3 :41 PM EDT 09/10/2023 3:42 PM EDT Narrative [facility] - 09/11/2023 5:37 AM EDT FASTING:NO COLLECTION KIT GIVEN TO PATIENT. PATIENT ADVISED TO RETURN. Akira Bedoya PA-C LAB - BLOOD DRAW Final Resul t [facility] [address] [address], [facility] [address] [place] [phone] * (ABNORMAL) COMPREHENSIVE METABOLIC PANEL (09/10/2023 3:41 PM EDT) GLUCOSE 91 65 - 139 mg/dL [facility] Comment: Non-fasting reference interval UREA NITROGEN (BUN) 20 7 - 25 mg/dL [facility] CREATININE (blood) 0.85 0.50 - 1.03 mg/dL [facility] EGFR 79 > OR = 60 mL/min/1. 73m2 [facility] BUN/CREATININE RATIO SEE NOTE: 6 [facility] Comment: Not Reported: BUN and Creatinine are within reference range. SODIUM 137 135 - 146 mmol/L [facility] POTASSIUM 4.4 3.5 - 5.3 mmol/L [facility] CHLORIDE 101 98 - 110 mmol/L [facility] CARBON DIOXIDE 27 20 - 32 mmol/L [facility] CALCIUM 10.3 8.6 - 10.4 mg/dL [facility] PROTEIN, TOTAL 7.6 6.1 - 8.1 g/dL [facility] ALBUMIN 4.7 3.6 - 5.1 g/dL [facility] (EBTH) [facility] [facility] GLOBULIN 2.9 1.9 - 3.7 g/dL (calc) [facility] (EBTH) [place] [facility] ALBUMIN/GLOBULI N RATIO 1.6 1.0 - 2.5 (calc) [facility] (EBTH) [place] [facility] BILIRUBIN, TOTAL 0.9 0.2 - 1.2 mg/dL [facility] (EBTH) [facility] ALKALINE PHOSPHATASE 132 37 - 153 U/L [facility] (EBTH) [facility] AST 30 10 - 35 U/L [facility] (EBTH) [facility] ALT 32(H) 6 - 29 U/L [facility] (EBTH) [facility] Blood Blood / Unknown 09/10/2023 3 :41 PM EDT 09/10/2023 3:42 PM EDT Narrative [facility] - 09/11/2023 5:37 AM EDT FASTING:NO COLLECTION KIT GIVEN TO PATIENT. PATIENT ADVISED TO RETURN. us Akira Bedoya PA-C LAB - BLOOD DRAW Final Resul t [facility] [address] [place] [id number], [facility] [address] [phone] * HISTORIC MAMMOGRAM (05/22/2023 3:00 AM EST) 05/22/2023 3:00 AM EST us Akira Bedoya PA-C IMG MAMMO Edited Resul t - Final * HEPATITIS A,B,C PANEL (02/03/2020 11:00 AM EDT) HEPATITIS B SURFACE ANTIBODY NEGATIVE NEGATIVE [facility] HEPATITIS B SURFACE ANTIGEN NEGATIVE NEGATIVE [facility] Comment: Over the counter supplements containing high doses of biotin may interfere with this assay. If interference is suspected, patients shoud be retested after refraining from biotin supplements for 72 hours. HEPATITIS C VIRUS DIAGNOSTIC NEGATIVE NEGATIVE [facility] HEPATITIS A ANTIBODY TOTAL NEGATIVE NEGATIVE [facility] Comment: Over the counter supplements containing high doses of biotin may interfere with this assay. If interference is suspected, patients shoud be retested after refraining from biotin supplements for 72 hours. HEPATITIS B CORE ANTIBODY NEGATIVE NEGATIVE [facility] 02/03/2020 11:0 0 AM EDT 02/03/2020 11:52 AM EDT Narrative [facility] - 02/03/2020 4:11 PM EDT [employer], a member of [address] [address] Telecom Assistant - H[place] [id number] ORD# [id number] [facility] - BLOOD DRAW Edited Result - Final Performing Organization Address City/[facility]/ZIP Co de Phone Number [address] [address], * PAP, LIQUID BASED (12/18/2019 1:54 PM EDT) PAP normal NORMAL - ABNORMAL [facility] Swab of endocervix (specimen) Endocervical structure / Unknown 12/18/2019 1:54 PM EDT Impressions [facility] - 12/18/2019 1:54 PM EDT Negative for squamous intraepithelial lesion and malignancy High risk HPV assay: Negative Repeat 5 years [facility] - PATHOLOGY AND CYTOLOGY AMB ULATORY Final Result Performing Organization Address [facility]/ZIP Co de Phone Number [facility] [address] [address], * HIV-1 & HIV-2 ANTIBODIES (11/25/2018 4:38 PM EDT) HIV 1 AND 2 ANTIBODY SCREEN NEGATIVE NEGATIVE [facility] Comment: This assay is a 4th generation [...] EDT 11/25/2018 7:16 PM EDT Narrative [facility] - 11/25/2018 9:18 PM EDT [facility], a member of [address] [address] Telecom Assistant - Hiral P[place] [id number] ORD# [id number] Lien Mens[facility] - BLOOD DRAW Final Result Performing Organization Address City/State/[facility] Co de Phone Number [facility] [address], from Last 3 Months or Most Recently Relevant to Health Maintenance Insurance [employer] Care Teams Linux Solaris Administrator Relationship Specialty Start Date End Date Akira Bedoya PA-C [address] [place] [address] PCP - General [facility], [place] 10/04/21
== END 2024-12-15 12:56 | disposition home or self-care (01) ==
LOC: HO.HOSX 12:55
DX: S52.572A Other intraarticular fracture of lower end of left radius, initial encounter for closed fracture (principal); V58.2XXA Person on outside of pick-up truck or van injured in noncollision transport accident in nontraffic accident, initial encounter
CPT/HCPCS: 73110; 99212

== ENCOUNTER 2024-12-15 14:15 | Outpatient (AMB) | payer MEDICAID, SELFPAY ==
[2024-12-15 14:32] VITALS: BMI 26.6
--- NOTE | 2024-12-15 14:32 | MHC.OFFVIS ---
Vital Signs 12/15/24 14:32 Height 5 ft 5 in Weight 160 lb BMI 26.6 Intake Visit Reasons: FC-Lt wrist distal radius/ulna fx Intake Note: Carina is a 59 year old right hand dominant female, new patient, who presents today for an ED follow up status post Left Wrist Distal Radius/Ulna Fracture, DOI: 12/12/24. Patient states she fell off a [employer] truck. Patient also presented to [facility] ED on 12/14/24 complaining of ongoing pain, feeling like her splint was too tight. She also complained of intermittent tingling at the fingers. She reported she had not been elevating her arm while at rest and only using sling intermittently, as she did not understand the discharge instructions. Today patient complains of pain on the dorsal and volar aspect of the hand and wrist. She is taking Oxycodone and Tylenol with minimal relief. She denies numabness or tingling. No previous injuries or surgeries to the left hand. Allergies No Known Allergies (No Known Allergies*) Allergy (Verified 12/16/24 13:21) HPI HPI FC-Lt wrist distal radius/ulna fx: Details: Carina is a 59 year old right hand dominant female, new patient, who presents today for an ED follow up status post Left Wrist Distal Radius/Ulna Fracture, DOI: 12/12/24. Patient states she fell off a [employer] truck. Patient also presented to [facility] ED on 12/14/24 complaining of ongoing pain, feeling like her splint was too tight. She also complained of intermittent tingling at the fingers. She reported she had not been elevating her arm while at rest and only using sling intermittently, as she did not understand the discharge instructions. Today patient complains of pain on the dorsal and volar aspect of the hand and wrist. She is taking Oxycodone and Tylenol with minimal relief. She denies numabness or tingling. No previous injuries or surgeries to the left hand. [facility] Medical History Sleep apnea Carpal tunnel syndrome Arthritis HTN (hypertension) Social History Alcohol intake: never Review of Systems Const All systems reviewed & are unremarkable except as noted in HPI and below Physical Exam Vital Signs: BMI result Body Mass Index 26.6 Extrem Other: Patient is alert, oriented, and in no acute distress. Neuro: Normal sensation of the tips of all digits of the left hand at this time Vascular: Cap refill brisk Pain: Tenderness to palpation noted of the left wrist, particularly over the distal radius Pain with minimal attempted range of motion of the left hand Skin: No lacerations or abrasions. General: Circumferential ecchymosis noted of the left wrist No erythema, or evidence of infection. Psych: Appears grossly normal Affect normal Attitude cooperative Results Reviewed Results Reviewed: X-rays obtained in the office today and independently reviewed by me, Patel Downing PA-C, demonstrate minimally displaced, comminuted, intra-articular fracture of the left distal radius. Assessment & Plan Assessment & Plan (1) Fracture of left distal radius: Code(s): S52.502A - Unspecified fracture of the lower end of left radius, initial encounter for closed fracture Category: Medical Plan 1. Left distal radius fracture Date of injury 12/12/2024 I educated the patient about the condition. I discussed both operative and nonoperative treatment options. The patient would like to proceed with surgery. The risks and benefits of operative treatment were discussed with the patient and the patient wishes to proceed with surgery. These risks include, but are not limited to, risk of damage to blood vessels, nerves, tendons, infection, recurrence, incomplete relief of preoperative symptoms, persistent pain, possible need for further surgery, and the risks associated with regional blocks and/or anesthesia. Plan is to take the patient to the operating room at some point in the next few weeks for the following procedures: 1. Left distal radius fracture ORIF under general anesthesia All of the preoperative paperwork including the consent was discussed today. All of the patient's questions were answered in the clinic today. The patient understands that they will be in contact with our surgical services coordinator to discuss scheduling their procedure. Patient denies diabetes, blood thinners, asthma, heart issues, lung issues, kidney issues, or current smoking. Orders: Orders XR wrist LT min 3V 12/15/24 M25.532 - Pain in left wrist Medications: Discontinued meloxicam Discontinued Reason: Patient Completed Course 7.5 mg PO DAILY 14 tabs 0RF fluticasone propionate 50 mcg/actuation (Flonase Allergy Relief) administer into each nostril Discontinued Reason: Patient Completed Course 2 sprays intranasal DAILY 16 grams 0RF loratadine (Claritin) Discontinued Reason: Patient Completed Course 10 mg PO DAILY 30 tabs 0RF benzonatate Discontinued Reason: Patient Completed Course 100 mg PO TID PRN 10 caps 0RF cough tramadol Discontinued Reason: Patient no longer taking 50 mg PO Q6H PRN 12 tabs 0RF severe pain (scale score 7-10) guaifenesin Discontinued Reason: Patient Completed Course 200 mg (5 mL) PO Q4H PRN 118 mL 0RF cough methocarbamol Discontinued Reason: Patient no longer taking 750 mg PO BID PRN 20 tabs 0RF muscle spasm benzonatate Discontinued Reason: Patient no longer taking 200 mg PO TID PRN 15 caps 0RF cough hydrocodone-homatropine 5-1.5 mg/5 mL (5 mL) (Hycodan) Partial Fill upon patient request. side effect is drowsiness. do not take while driving or at work Discontinued Reason: Patient Completed Course 5 mL PO Q6H 3 days PRN 60 mL 0RF cough Coding Level of Care Code New Pt Level 4 (24605) Diagnoses Fracture of left distal radius S52.502A
--- OUTSIDE RECORDS SUMMARY | 2024-12-15 15:29 | XMS_ITS | Clinical Summary ---
Author Organization [facility] Address [address] [place] [address] Care Team Providers Care Felt Carbonizer Name Role Phone Unavailable Primary Care Provider Unavailabl e Encounters Date Type Department Care Team Description 11/03/2024 Population Health Risk Score [facility] Care [facility] (C3) Department [address] [facility] [address] [place] [id number] Provider, Population Health Generic from Last 3 [...]
== END 2024-12-15 15:14 | disposition home or self-care (01) ==
LOC: HO.HOS 14:16
PROVIDERS: PCP Dentist General Practice
DX: S52.502A Unspecified fracture of the lower end of left radius, initial encounter for closed fracture (principal)
CPT/HCPCS: 99204

== ENCOUNTER → 2024-12-15 14:17 | Outpatient (BNV) | payer MEDICAID, SELFPAY | PROVIDERS: Visit Provider Radiology Diagnostic Radiology | DX: M25.532 Pain in left wrist (principal) | CPT/HCPCS: 73110 ==

== ENCOUNTER 2024-12-16 13:16 | Outpatient (AMB) | payer MEDICAID, SELFPAY ==
--- NOTE | 2024-12-16 13:19 | MHC.OFFVIS ---
Vital Signs 12/16/24 13:22 Height 5 ft 5 in Weight 190 lb BMI 31.6 Handedness Right Intake Visit Reasons: OV-Lt wrist distal radius/ulna fx-splint change Intake Note: Carina is a 59 year old right hand dominant female, new patient, who presents today for an ED follow up status post Left Wrist Distal Radius/Ulna Fracture, DOI: 12/12/24. Patient presents today for a splint change. Reports numbness in palm and swelling. She was prescribed oxycodone w/ acetaminophen and this offers no relief. She has tramadol from the past and is asking if she can take this for her pain since she has left over. Allergies No Known Allergies (No Known Allergies*) Allergy (Verified 12/16/24 13:21) HPI HPI OV-Lt wrist distal radius/ulna fx-splint change: Details: Carina is a 59 year old right hand dominant female, new patient, who presents today for an ED follow up status post Left Wrist Distal Radius/Ulna Fracture, DOI: 12/12/24. Patient presents today for a splint change. Reports numbness in palm and swelling. She was prescribed oxycodone w/ acetaminophen and this offers no relief. She has tramadol from the past and is asking if she can take this for her pain since she has left over. [facility] Medical History Sleep apnea Carpal tunnel syndrome Arthritis HTN (hypertension) Social History Alcohol intake: never Review of Systems Const All systems reviewed & are unremarkable except as noted in HPI and below Physical Exam Vital Signs: BMI result Body Mass Index 31.6 Extrem Other: Patient is alert, oriented, and in no acute distress. Neuro: Normal sensation of the tips of all digits of the left hand at this time Vascular: Cap refill brisk Pain: Tenderness to palpation noted of the left wrist, particularly over the distal radius Pain with minimal attempted range of motion of the left hand Skin: No lacerations or abrasions. General: Circumferential ecchymosis noted of the left wrist No erythema, or evidence of infection. Psych: Appears grossly normal Affect normal Attitude cooperative Office Procedures Casting/Splints [id number] Splint Application Procedure code (CPT) selection complete Assessment & Plan Assessment & Plan (1) Fracture of left distal radius: Code(s): S52.502A - Unspecified fracture of the lower end of left radius, initial encounter for closed fracture Category: Medical Plan 1. Left distal radius fracture Date of injury 12/12/2024 Splint changed today in the office about issue Patient is educated on proper splint care and precautions Patient should follow-up on Saturday for previously scheduled surgical intervention for the left distal radius, sooner with any acute concerns Coding Level of Care Code Est Pt Level 3 (95446) Diagnoses Fracture of left distal radius S52.502A CPT Codes Splint - CPT: 14044-Acdftoj Splint Application ([id number])
[2024-12-16 13:22] VITALS: BMI 31.6
--- OUTSIDE RECORDS SUMMARY | 2024-12-16 15:35 | XMS_ITS | Clinical Summary ---
Author Organization [facility] Address [address] [place] [address] Care Team Providers Care Real Property Appraiser Name Role Phone Akira Bedoya PA-C Primary Care Provider + [phone] Source Comments PLEASE NOTE, if this patient [...] or malignancy. Normal ovaries. - Referred to [facility] OPER[facility] (internal) Bilateral lower extremity edema 08/02/2021 Chronic [...] abdominal aortic aneurysm 11/2014 Aortic ectasia, abdominal ([facility]-HCC V24) 07/22/19 15 S/P tubal ligation 06/28/2014 Hypertension, essential 01/08/2014 Heartburn 01/08/2014 Constipation, chronic 01/08/2014 Disturbance in sleep behavior 01/08/2014 Fibromyalgia 01/08/2014 Immunizations Immunization Administration Dates Next Due Flu, Preservative Free 01/08/2020,04/25/2018 HEP A-HEP B ([facility]) 02/08/2020 Hep A, adult 11/14/2021 Hep B,adult,adjuvanted (HEPLISAV) 02/28/2023, MMR (MMR II/Priorix) 02/17/2020,01/08/2020 PFIZER COVYeelion VACCINE, PURPLE CAP, 12+ 11/02/2021 TDAP 11/25/2018 [...] 09/09/2024 09/10/2023, 03/16, 02/03/2020, Additional history exists [id number] (3 - season) 2024 11/23/2021, 11/02/2021 Imm-Influenza [...] PM EDT) CHOLESTEROL, TOTAL 130 <200 mg/dL [facility] HDL CHOLESTEROL 43(L) > OR = 50 mg/dL [facility] TRIGLYCERIDES 173(H) <150 mg/dL [facility] LDL-CHOLESTEROL 62 99 mg/dL (calc) [facility] Comment: Reference range: <100 Desirable range <100 mg/dL for primary prevention; <70 mg/dL for patients with CHD or diabetic patients with > or = 2 CHD risk factors. LDL-C is now calculated using the Manuel calculation, which is a validated novel method providing better accuracy than the Friedewald equation in the estimation of LDL-C. Alirio SS et al. REJI. 2013;310(19): 4332-2371 (http://education.[employer]/faq/ZFY615) CHOL/HDLC RATIO 3.0 <5.0 (calc) [facility] NON-HDL CHOLESTEROL 87 <130 mg/dL (calc) [facility] Comment: For patients with diabetes plus 1 major ASCVD risk factor, treating to a non-HDL-C goal of <100 mg/dL (LDL-C of <70 mg/dL) is considered a therapeutic option. Blood Blood / Unknown 09/10/2023 3 :41 PM EDT 09/10/2023 3:42 PM EDT Narrative [facility] - 09/11/2023 5:37 AM EDT FASTING:NO COLLECTION KIT GIVEN TO PATIENT. PATIENT ADVISED TO RETURN. Akira Bedoya PA-C LAB - BLOOD DRAW Final Resul t [facility] [address] [address], [facility] [address] [place] [id number] * (ABNORMAL) COMPREHENSIVE METABOLIC PANEL (09/10/2023 3:41 PM EDT) GLUCOSE 91 65 - 139 mg/dL [facility] Comment: Non-fasting reference interval UREA NITROGEN (BUN) 20 7 - 25 mg/dL [facility] CREATININE (blood) 0.85 0.50 - 1.03 mg/dL [facility] EGFR 79 > OR = 60 mL/min/1. 73m2 [facility] BUN/CREATININE RATIO SEE NOTE: 6 [facility] Comment: Not Reported: BUN and Creatinine are within reference range. SODIUM 137 135 - 146 mmol/L [facility] POTASSIUM 4.4 3.5 - 5.3 mmol/L [facility] CHLORIDE 101 98 - 110 mmol/L [facility] CARBON DIOXIDE 27 20 - 32 mmol/L [facility] CALCIUM 10.3 8.6 - 10.4 mg/dL [facility] PROTEIN, TOTAL 7.6 6.1 - 8.1 g/dL [facility] ALBUMIN 4.7 3.6 - 5.1 g/dL [facility] GLOBULIN 2.9 1.9 - 3.7 g/dL (calc) [facility] ALBUMIN/GLOBULI N RATIO 1.6 1.0 - 2.5 (calc) [facility] BILIRUBIN, TOTAL 0.9 0.2 - 1.2 mg/dL [facility] ALKALINE PHOSPHATASE 132 37 - 153 U/L [facility] AST 30 10 - 35 U/L [facility] ALT 32(H) 6 - 29 U/L [facility] Blood Blood / Unknown 09/10/2023 3 :41 PM EDT 09/10/2023 3:42 PM EDT Narrative [facility] [email or web address] - 09/11/2023 5:37 AM EDT FASTING:NO COLLECTION KIT GIVEN TO PATIENT. PATIENT ADVISED TO RETURN. us Akira Bedoya PA-C LAB - BLOOD DRAW Final Resul t [facility] [address] [place] [id number], [facility] [address] [phone] * HISTORIC MAMMOGRAM (05/22/2023 3:00 AM EST) 05/22/2023 3:00 AM EST us Akira Bedoya PA-C IMG MAMMO Edited Resul t - Final * HEPATITIS A,B,C PANEL (02/03/2020 11:00 AM EDT) HEPATITIS B SURFACE ANTIBODY NEGATIVE NEGATIVE [facility] HEPATITIS B SURFACE ANTIGEN NEGATIVE NEGATIVE [facility] Comment: Over the counter supplements containing high doses of biotin may interfere with this assay. If interference is suspected, patients shoud be retested after refraining from biotin supplements for 72 hours. HEPATITIS C VIRUS DIAGNOSTIC NEGATIVE NEGATIVE [facility] HEPATITIS A ANTIBODY TOTAL NEGATIVE NEGATIVE [facility] Comment: Over the counter supplements containing high doses of biotin may interfere with this assay. If interference is suspected, patients shoud be retested after refraining from biotin supplements for 72 hours. HEPATITIS B CORE ANTIBODY NEGATIVE NEGATIVE [facility] 02/03/2020 11:0 0 AM EDT 02/03/2020 11:52 AM EDT Narrative [facility] - 02/03/2020 4:11 PM EDT [employer], a member of [address] [address] Financial Compliance Examiner - Hiral Pena [place] [id number] ORD# [id number] [facility] - BLOOD DRAW Edited Result - Final Performing Organization Address City/[facility]/ZIP Co de Phone Number [address] [address], * PAP, LIQUID BASED (12/18/2019 1:54 PM EDT) PAP normal NORMAL - ABNORMAL [facility] Swab of endocervix (specimen) Endocervical structure / Unknown 12/18/2019 1:54 PM EDT Impressions [facility] - 12/18/2019 1:54 PM EDT Negative for squamous intraepithelial lesion and malignancy High risk HPV assay: Negative Repeat 5 years [facility] - PATHOLOGY AND CYTOLOGY AMB ULATORY Final Result Performing Organization Address [facility]/ZIP Co de Phone Number [facility] [address] [address], * HIV-1 & HIV-2 ANTIBODIES (11/25/2018 4:38 PM EDT) HIV 1 AND 2 ANTIBODY SCREEN NEGATIVE NEGATIVE [facility] Comment: This assay is a 4th [...] EDT 11/25/2018 7:16 PM EDT Narrative [facility] - 11/25/2018 9:18 PM EDT [facility], a member of [address] [address] Financial Compliance Examiner - Hiral P[place] [id number] ORD# [id number] Lien [facility] ISOTOPE TECHNICIAN LAB - BLOOD DRAW Final Result Performing Organization Address City/State/[facility] Co de Phone Number [facility] [address], from Last 3 Months or Most Recently Relevant to Health Maintenance Insurance [employer] Care Teams Real Property Appraiser Relationship Specialty Start Date End Date Akira Bedoya PA-C [address] [place] [address] PCP - General [facility] [place] 10/04/21
--- OUTSIDE RECORDS SUMMARY | 2024-12-16 15:35 | XMS_ITS | Clinical Summary ---
Author Organization [facility] Address [address] [place] [address] Care Team Providers Care Blunger Machine Operator Name Role Phone Unavailable Primary Care Provider Unavailabl e Encounters Date Type Department Care Team Description 11/03/2024 Population Health Risk Score [facility] (C3) Department [address] [facility] [address] [place] [id number] Provider, Population Health Generic from Last 3 [...]
== END 2024-12-16 14:34 | disposition home or self-care (01) ==
LOC: HO.HOS 13:16
DX: S52.502D Unspecified fracture of the lower end of left radius, subsequent encounter for closed fracture with routine healing (principal)
CPT/HCPCS: 29125; 99213

== ENCOUNTER → 2024-12-16 13:16 | Outpatient (BNVA) | payer MEDICAID, SELFPAY | DX: S52.502A Unspecified fracture of the lower end of left radius, initial encounter for closed fracture (principal); R20.0 Anesthesia of skin; Z09 Encounter for follow-up examination after completed treatment for conditions other than malignant neoplasm | CPT/HCPCS: 29125; 99212 ==

== ENCOUNTER 2024-12-21 10:10 | Day surgery (SDC) | payer MEDICAID, SELFPAY ==
--- NOTE | 2024-12-17 13:39 | HO.ANESPROP2 ---
Documented by User: Jeanine Bueno NP 12/17/24 13:45 HPI - Anesthesia Eval Consult details Narrative: 59yo F for Left Radius Distal Fracture ORIF Hx of chest pain - eval'd by [facility] 2022 with nml echo and stress at that time PMFSH Active Problems Active Problems: All Active Problems COVID-19 (Acute) Past Medical History Medical History Sleep apnea Carpal tunnel syndrome Arthritis HTN (hypertension) Social History Social History Alcohol intake: never Patient Tobacco Use Status: Never used Tobacco Use of substances other than those prescribed or required for medical reasons: No Advance Directives: No Advance Directives Information Provided: Yes Meds Allergies Allergy/AdvReac Type Severity Reaction Status Date / Time No Known Allergies (No Known Allergy Verified 12/16/24 13:21 Allergies*) Home Medications ?Medication ?Instructions ?Recorded ?Confirmed ?Last Taken ?Type amlodipine 5 mg tablet 5 mg PO DAILY 12/15/24 12/21/24 12/21/24 08:00 History lisinopril 20 mg tablet 20 mg PO DAILY 12/15/24 12/21/24 Unknown History rosuvastatin 20 mg tablet 20 mg PO DAILY 12/15/24 12/21/24 12/20/24 12:00 History Exam Pertinent Lab Results Pertinent Lab Results: Laboratory Tests 08/31/24 20:19 WBC 11.9 H Hgb 12.4 Hct 37.3 Plt Count 397 Sodium 141 Potassium 3.4 Chloride 107 Carbon Dioxide 25 BUN 15 Creatinine 0.77 Narrative Narrative: EKG 08/2024 Vent. Rate : 85 BPM Atrial Rate : 85 BPM P-R Int : 150 ms QRS Dur : 82 ms QT Int : 396 ms P-R-T Axes : 59 9 43 degrees QTcB Int : 471 ms Normal sinus rhythm Nonspecific T wave abnormality Prolonged QT Abnormal ECG When compared with ECG of 19-Feb-2023 00:46, No significant change was found Assessment and Plan Assessment Anesthesia Assessment: Chart Reviewed Documented by User: Jeanne Ricardo MD 12/21/24 13:53 PMFSH Past Medical History Medical History Sleep apnea Carpal tunnel syndrome Arthritis HTN (hypertension) Family History Family history of problems with anesthesia: No Surgical History History of Problems with Anesthesia: No Social History Social History Alcohol intake: never Patient Tobacco Use Status: Never used Tobacco Use of substances other than those prescribed or required for medical reasons: No Advance Directives: No Advance Directives Information Provided: Yes Meds Allergies Allergy/AdvReac Type Severity Reaction Status Date / Time No Known Allergies (No Known Allergy Verified 12/16/24 13:21 Allergies*) Home Medications ?Medication ?Instructions ?Recorded ?Confirmed ?Last Taken ?Type amlodipine 5 mg tablet 5 mg PO DAILY 12/15/24 12/21/24 12/21/24 08:00 History lisinopril 20 mg tablet 20 mg PO DAILY 12/15/24 12/21/24 Unknown History rosuvastatin 20 mg tablet 20 mg PO DAILY 12/15/24 12/21/24 12/20/24 12:00 History Exam Airway Mallampati Class: II TM Dist: >3cm Neck ROM: Full Heart: rrr Lungs: cta Assessment and Plan Assessment Anesthesia Assessment: Anesthesia Plan Discussed Final Anesthetic Review Family History of Problems with Anesthesia: No History of Problems with Anesthesia: No NPO: Yes ASA Class: II Final Preanesthetic Review: No Changes in Pt Med Stat, Meds/Allgs Chart Reviewed and Consent Obtained/Reviewed Patient Risk: Low Procedure Risk: Low Anesthetic Plan Anesthetic Plan: GA Disposition: Standard PACU
[2024-12-21] VITALS (9 sets, daily range): BP systolic 120–144; BP diastolic 69–81; PULSE 79–103; RESP 15–20; TEMP 36.3–36.7; O2SAT 90–98; BMI 33.5
--- NOTE | ~2024-12-21 | FL_ITS ---
EXAMINATION: FL GUIDANCE ONLY HISTORY: left distal radius ORIF COMPARISON: Correlation is made with plain films of the left wrist dated 12/15/2024. TECHNIQUE: Fluoroscopy time: 0.6 minutes. Cumulative Dose: 1.1643 mGy. DAP: 0.0704 mGym2 Images: 5. FINDINGS: Fluoroscopic spot films of the left wrist demonstrate internal fixation of the previously seen fracture of the distal radial metaphysis with a sideplate and multiple orthopedic screws. FL/FL guidance in OR IMPRESSION: Fluoroscopy during procedure. Please see procedure report for additional information. Electronically signed by: Arnulfo Aguero MD 12/22/2024 07:01 AM EDT
--- NOTE | 2024-12-21 11:35 | P.OP_ITS ---
Operative Note Operative Note Date of Service: 12/21/24 Narrative: Operative Note Narrative: Preop diagnosis: 1. Left Distal radius fracture, comminuted intra-articular Postop diagnosis: Same Procedure: 1. Left Distal radius fracture open reduction internal fixation, 2 part intra- articular Surgeon: Yanira Calabrese MD Tungsten Refiner: None Anesthesia: General anesthesia plus regional block Findings: This is a very distal intra-articular distal radius fracture. Implants: A 3 hole [employer]u [employer] volar locking plate, with 4 X 2.3 mm locking pegs/screws, and 3 3.5 mm cortical screws Tourniquet time: 47 minutes EBL: 5.0 ml Specimen: None Drains: None Complications: None Disposition: Brought to the recovery room in stable condition Plan: Follow-up in 10-14 days for wound check, suture removal and postop radiographs The patient will be placed in either a short-arm cast Encouraged no lifting of anything heavier than a cell phone. Please encourage active and passive range of motion of the digits. Follow-up at 4-5 weeks postop for repeat radiographs. Indications: The patient is a 59 year old woman with a comminuted intra- articular left distal radius fracture . The risks and benefits of operative treatment, including but not limited to risk of damage to blood vessels, nerves, tendons, infection, recurrence, persistent pain or numbness, incomplete resolution of preoperative symptoms, or need for further surgery were discussed with the patient and they wished to proceed with surgery. Procedure: Once consent was obtained patient was brought back to the operating suite and placed in the operating table in a supine position. A regional block was performed by the anesthesia team. Perioperative antibiotics and anesthesia was administered by the anesthesia team. A tourniquet was applied to the proximal aspect of the left upper extremity and the limb was prepped and draped in a standard surgical fashion. The limb was elevated exsanguinated with Esmarch bandage and the tourniquet inflated to 250 mm of mercury for a total tourniquet time of 47 minutes. The FluoroScan was used throughout the case to assess our reduction, and facilitate implant placement. A gentle closed reduction was 1st performed on the patient's left distal radius fracture. Was assessed radiographically before proceeding with the reduction internal fixation. I made an 8 cm longitudinal incision over the distal aspect of the flexor carpi radialis tendon. The incision was made through the skin to the subcutaneous tissue using a 15. Blade. Then carefully dissected down to flexor carpi radialis tendon she tenotomy scissors. The FCR tendon sheath was then incised longitudinally using tenotomy scissors under direct visualization. The FCR tendon was then retracted ulnarly. I then made a longitudinal incision in the volar forearm fascia through the floor of FCR tendon sheath using tenotomy scissors under direct visualization. I identified the interval between the radial artery and the flexor tendons. This interval was developed further with my index finger, releasing some of the muscular fibers of the flexor pollicis longus. A dull weatlander retractor was then placed. I then created an ulnarly based flap of the pronator quadratus by releasing the radial and distal edges using a 15. Blade. A Stevens elevator was used to elevate the pronator quadratus from the volar surface of the distal radius. This then revealed to us our distal radius fracture. This is a very distal transverse fracture line with 2 intra-articular splits, 1 involving a far radial radial styloid fragment. An open reduction was then performed on our distal radius fracture. I then placed a short narrow 3 hole [employer] volar locking plate on the volar surface of the distal radius. I placed a single K-wire through the distal aspect of the plate and into the distal radius. This was assessed using fluoroscopic images. I was satisfied with the placement of our plate. I then placed 4x 2.3 mm locking screws/pegs in the distal aspect of the plate and distal radius by 1st drilling bicortically with a 2.0 mm drill bit, measuring with a depth gauge, and placing the appropriate length locking screws/pegs. The placement of our plate and screws was then assessed again using fluoroscopic images. The once satisfied with the placement of the volar locking plate and screws on the distal aspect of the distal radius, the plate was then reduced to the shaft of the radius. I then placed 3 X 3.5 mm cortical screws to the proximal aspect of the plate and into the shaft of the radius. This was done by 1st drilling bicortically with a 2.8 mm drill bit, measuring with a depth gauge, and placing the appropriate length screw. Final radiographs were then obtained. The DRUJ was assessed and found to be stable on exam. I was satisfied with our reduction and placement of all implants. At this point the wound was irrigated with normal saline. The pronator quadratus was reduced back over the volar locking plate using some 3-0 Vicryl suture material. The tourniquet was then deflated and hemostasis was obtained with a brief period of local pressure and bipolar monopolar electrocautery. The subcutaneous layer was then reapproximated using some 4-0 Vicryl suture, and the skin edges were reapproximated using some 5 0 Prolene suture. The wound was then infiltrated with some 1% lidocaine with epinephrine postop pain control. A sterile dressing and a short dorsal splint allowing for active flexion and extension of the digits was applied. The patient appears to have tolerated the procedure well and with no complications. All digits were well vascularized conclusion of the case.
[2024-12-21] MEDS: Lactated Ringers 1,000 ML 100 ML IVCONT (12:10)
--- NOTE | 2024-12-21 13:38 | MHC.SHP ---
Pre-Procedural Eval Section A - 24 Hr Update-Section A only Date of Service: 12/21/24 The patient is an INPATIENT: No Changes since office visit: No Cold of Flu in the past 2 weeks, No New Medical Problems, No Changes in Medication and No Patient answered all questions The patient has been examined within 24 hours of the surgical procedure. The History & Physical has been completed within 30 days and I have reviewed it.: Yes Section B - Complete if H&P > 30 days Chief Complaint: Unspecified fracture of the lower end of left Allergies: Allergies Allergy/AdvReac Type Severity Reaction Status Date / Time No Known Allergies (No Known Allergy Verified 12/16/24 13:21 Allergies*) Plan I have reviewed the history and physical and performed a pertinent physical examination on my patient. No changes have occurred unless specified. Time Spent With Patient Time: Total time managing care of this patient today ____ minutes.
[2024-12-21] MEDS: oxyCODONE HCl Immed Release 5 MG TABLET PO (17:33)
== END 2024-12-21 18:16 | disposition home or self-care (01) ==
PROVIDERS: PCP Dentist General Practice; Visit Provider Orthopaedic Surgery
PROC: (CPT 25608; principal; 2024-12-21 13:30)
DX: S52.572A Other intraarticular fracture of lower end of left radius, initial encounter for closed fracture (principal); Z91.199 Patient's noncompliance with other medical treatment and regimen due to unspecified reason; M79.642 Pain in left hand; M25.532 Pain in left wrist; W17.89XA Other fall from one level to another, initial encounter; Y93.89 Activity, other specified; Y92.9 Unspecified place or not applicable; Y99.9 Unspecified external cause status; I10 Essential (primary) hypertension; G56.00 Carpal tunnel syndrome, unspecified upper limb; M19.90 Unspecified osteoarthritis, unspecified site; G47.30 Sleep apnea, unspecified; Z79.899 Other long term (current) drug therapy
CPT/HCPCS: 25608; C1713; J0131; J0665; J0690; J1100; J2003; J2004; J2250; J2371; J2405; J2704; J3010

== ENCOUNTER → 2024-12-21 10:10 | Outpatient (BNV) | payer MEDICAID, SELFPAY | PROVIDERS: PCP Dentist General Practice; Visit Provider Orthopaedic Surgery | DX: S52.572A Other intraarticular fracture of lower end of left radius, initial encounter for closed fracture (principal) | CPT/HCPCS: 25608 ==

== ENCOUNTER 2024-12-29 10:32 | Outpatient (REF) | payer MEDICAID, SELFPAY ==
--- NOTE | ~2024-12-29 | XR_ITS ---
EXAMINATION: XR KNEE, LEFT CLINICAL INFORMATION: M25.569 - Pain in unspecified knee COMPARISON: None available. TECHNIQUE: AP standing and sunrise views of the left knee. FINDINGS: There is mild narrowing of the medial greater than lateral joint space. There is chondrocalcinosis in the medial joint line. There is amorphous calcification in the lateral meniscus. Minute tibial osteophytes are present. There is also a marginal osteophyte involving the lateral patella. 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 Electronically signed by: Andrea Pandey MD 12/29/2024 12:15 PM EDT
--- NOTE | ~2024-12-29 | XR_ITS ---
EXAMINATION: XR KNEE, RIGHT CLINICAL INFORMATION: M25.569 - Pain in unspecified knee COMPARISON: None available. TECHNIQUE: AP and sunrise view of the right knee. FINDINGS: There is moderate narrowing of the medial joint space and mild narrowing of the lateral joint space. There is chondrocalcinosis in the medial and lateral joint line. Minute tibial osteophytes are present. XR/XR knee RT 2V IMPRESSION: Moderate osteoarthritis secondary to CPPD arthropathy. Electronically signed by: Andrea Pandey MD 12/29/2024 11:55 AM EDT
--- OUTSIDE RECORDS SUMMARY | 2024-12-30 12:58 | XMS_ITS | Clinical Summary ---
Author Organization [facility] Address [address] [facility] 7[address] [place] [address] Care Team Providers Care Intermodal Owner Operator Truck Driver Name Role Phone Unavailable Primary Care Provider Unavailabl e Encounters Date Type Department Care Team Description 11/03/2024 Population Health Risk Score [facility] (C3) Department [address] [facility] 7 [place] [id number] Provider, Population Health Generic from Last 3 [...]
--- OUTSIDE RECORDS SUMMARY | 2024-12-30 12:58 | XMS_ITS | Clinical Summary ---
Author Organization [facility] Address [address] [place] [address] Care Team Providers Care Dyer Helper Name Role Phone Akira Bedoya PA-C Primary Care Provider + [phone] Source Comments PLEASE NOTE, if this patient [...] or malignancy. Normal ovaries. - Referred to [facility] (internal) Bilateral lower extremity edema 08/02/2021 [...] abdominal aortic aneurysm 11/2014 Aortic ectasia, abdominal ([facility]-HCC V24) 07/22/19 15 S/P tubal ligation [...] 09/09/2024 09/10/2023, 03/16, 02/03/2020, Additional history exists [id number] (3 - season) 2024 11/23/2021, 11/02/2021 Imm-Influenza [...] PM EDT) CHOLESTEROL, TOTAL 130 <200 mg/dL [facility] HDL CHOLESTEROL 43(L) > OR = 50 mg/dL [facility] TRIGLYCERIDES 173(H) <150 mg/dL [facility] LDL-CHOLESTEROL 62 99 mg/dL (calc) [facility] Comment: Reference range: <100 Desirable range <100 mg/dL for primary prevention; <70 mg/dL for patients with CHD or diabetic patients with > or = 2 CHD risk factors. LDL-C is now calculated using the Alirio-Mcclain calculation, which is a validated novel method providing better accuracy than the Friedewald equation in the estimation of LDL-C. Alirio SS et al. REJI. 2013;310(19): 5585-4865 (http://education.[employer]/faq/DDU962) CHOL/HDLC RATIO 3.0 <5.0 (calc) [facility] NON-HDL CHOLESTEROL 87 <130 mg/dL (calc) [facility] Comment: For patients with diabetes plus 1 major ASCVD risk factor, treating to a non-HDL-C goal of <100 mg/dL (LDL-C of <70 mg/dL) is considered a therapeutic option. Blood Blood / Unknown 09/10/2023 3 :41 PM EDT 09/10/2023 3:42 PM EDT Narrative [facility] - 09/11/2023 5:37 AM EDT FASTING:NO COLLECTION KIT GIVEN TO PATIENT. PATIENT ADVISED TO RETURN. Akira Bedoya PA-C LAB - BLOOD DRAW Final Resul t [facility] [address] [address], [place] [facility] [address] [place] [address] * (ABNORMAL) COMPREHENSIVE METABOLIC PANEL (09/10/2023 3:41 PM EDT) GLUCOSE 91 65 - 139 mg/dL [facility] Comment: Non-fasting reference interval UREA NITROGEN (BUN) 20 7 - 25 mg/dL [facility] CREATININE (blood) 0.85 0.50 - 1.03 mg/dL [facility] EGFR 79 > OR = 60 mL/min/1. 73m2 [facility] BUN/CREATININE RATIO SEE NOTE: [facility] Comment: Not Reported: BUN and Creatinine are within reference range. SODIUM 137 135 - 146 mmol/L [facility] POTASSIUM 4.4 3.5 - 5.3 mmol/L [facility] CHLORIDE 101 98 - 110 mmol/L [facility] CARBON DIOXIDE 27 20 - 32 mmol/L [facility] CALCIUM 10.3 8.6 - 10.4 mg/dL [facility] PROTEIN, TOTAL 7.6 6.1 - 8.1 g/dL [facility] ALBUMIN 4.7 3.6 - 5.1 g/dL [facility] GLOBULIN 2.9 1.9 - 3.7 g/dL (calc) [facility] ALBUMIN/GLOBULI N RATIO 1.6 1.0 - 2.5 (calc) [facility] BILIRUBIN, TOTAL 0.9 0.2 - 1.2 mg/dL [facility] ALKALINE PHOSPHATASE 132 37 - 153 U/L [facility] AST 30 10 - 35 U/L [facility] ALT 32(H) 6 - 29 U/L [facility] Blood Blood / Unknown 09/10/2023 3 :41 PM EDT 09/10/2023 3:42 PM EDT Narrative [facility] [employer] [facility] - 09/11/2023 5:37 AM EDT FASTING:NO COLLECTION KIT GIVEN TO PATIENT. PATIENT ADVISED TO RETURN. us Akira Bedoya PA-C LAB - BLOOD DRAW Final Resul t [employer] [facility] [address] [address], [place] [facility] [address] [address] * HISTORIC MAMMOGRAM (05/22/2023 3:00 AM EST) 05/22/2023 3:00 AM EST Akira Bedoya PA-C IMG MAMMO Edited Resul t - Final * HEPATITIS A,B,C PANEL (02/03/2020 11:00 AM EDT) HEPATITIS B SURFACE ANTIBODY NEGATIVE NEGATIVE [facility] HEPATITIS B SURFACE ANTIGEN NEGATIVE NEGATIVE [facility] Comment: Over the counter supplements containing high doses of biotin may interfere with this assay. If interference is suspected, patients shoud be retested after refraining from biotin supplements for 72 hours. HEPATITIS C VIRUS DIAGNOSTIC NEGATIVE NEGATIVE [facility] HEPATITIS A ANTIBODY TOTAL NEGATIVE NEGATIVE [facility] Comment: Over the counter supplements containing high doses of biotin may interfere with this assay. If interference is suspected, patients shoud be retested after refraining from biotin supplements for 72 hours. HEPATITIS B CORE ANTIBODY NEGATIVE NEGATIVE [facility] 02/03/2020 11:0 0 AM EDT 02/03/2020 11:52 AM EDT Narrative [facility] - 02/03/2020 4:11 PM EDT [facility], a member of [address] [address] [employer] - Hiral P[place] [id number] ORD# [id number] [facility] LAB - BLOOD DRAW Edited Result - Final [address] [address], * PAP, LIQUID BASED (12/18/2019 1:54 PM EDT) PAP normal NORMAL - ABNORMAL [facility] Swab of endocervix (specimen) Endocervical structure / Unknown 12/18/2019 1:54 PM EDT Impressions [facility] - 12/18/2019 1:54 PM EDT Negative for squamous intraepithelial lesion and malignancy High risk HPV assay: Negative Repeat 5 years [facility] - PATHOLOGY AND CYTOLOGY AMB ULATORY Final Result Performing Organization Address City/[facility]/ZIP Co de Phone Number [facility] [address] [address], [place] [phone] * HIV-1 & HIV-2 ANTIBODIES (11/25/2018 4:38 PM EDT) HIV 1 AND 2 ANTIBODY SCREEN NEGATIVE NEGATIVE [facility] Comment: This assay is a 4th [...] PM EDT 11/25/2018 7:16 PM EDT Narrative [facility] - 11/25/2018 9:18 PM EDT [facility], a member of [address] [address] [employer] - Hiral [place] [id number] ORD# [id number] [facility] - BLOOD DRAW Final Result [address] [address], [place] [phone] from Last 3 Months or Most Recently Relevant to Health Maintenance Insurance [employer] Care Teams Dyer Helper Relationship Specialty Start Date End Date Akira Bedoya PA-C [address] [place] [address] PCP - General FAMILY MEDICINEAVERY 10/04/21
== END 2024-12-29 10:33 | disposition home or self-care (01) ==
LOC: HO.HOSX 10:32
PROVIDERS: Visit Provider Physician Assistant
DX: M17.0 Bilateral primary osteoarthritis of knee (principal)
CPT/HCPCS: 73560; 99212

== ENCOUNTER 2024-12-29 11:36 | Outpatient (AMB) | payer MEDICAID, SELFPAY ==
--- NOTE | 2024-12-29 11:44 | A.OFFVIS_ITS ---
Vital Signs 12/29/24 11:52 Height 5 ft Weight 160 lb BMI 31.2 Handedness Right Intake Visit Reasons: ER follow up - B/L knee pain, left is worse Intake Note: Carina is a 59 year old female who presents today for evaluation of her bilateral knee pain. Patient states that her pain is ongoing for more than 4 months. She expresses that her pain is worse on the left knee than the right. Patient notices that her pain is worse when she is going down the stairs. She mentions that she has tried any medications to help with pain due to not wanting to take anything for the pain. Patient mentions her pain is minimal today. IMPRESSION: 1. No acute findings Allergies No Known Allergies (No Known Allergies*) Allergy (Verified 12/29/24 11:51) HPI HPI ER follow up - B/L knee pain, left is worse: Details: Ms. Quezada is a 59-year-old female who presents to the office today for bilateral knee pain left knee greater than right. She reports that prior to today's appointment she was having roughly 4 months of waxing waning knee pain. She reports that the pain is worse with stair climbing, squatting and kneeling. She denies any injury or trauma to the area. She does not like to take wqre-ncz-qnrpcer pain relievers or anti-inflammatories therefore she has not tried these. However, she reports that she has minimal pain while in the office today. 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 No tenderness to palpation along the medial or lateral joint lines. Full knee extension and flexion. NVI. Psych Appearance: grossly normal Mental Status: mental status grossly normal Attitude: cooperative Assessment & Plan Assessment & Plan (1) Osteoarthritis of knees, bilateral: Code(s): M17.0 - Bilateral primary osteoarthritis of knee Category: Medical Plan Ms. Quezada is a 59-year-old female who presents to the office today for bilateral knee pain left knee greater than right. She reports that prior to today's appointment she was having roughly 4 months of waxing waning knee pain. She reports that the pain is worse with stair climbing, squatting and kneeling. She denies any injury or trauma to the area. She does not like to take stod-bga-kqvzngu pain relievers or anti-inflammatories therefore she has not tried these. However, she reports that she has minimal pain while in the office today. While in the office today, we discussed that the x-ray findings are consistent with osteoarthritis. Additionally, x-rays of the left knee reveal lateralization of the patella. Therefore, I discussed conservative treatment options including cortisone injection, knee bracing and physical therapy. Patient is not experiencing severe pain at this time therefore cortisone injection was deferred. I offered the patient physical therapy but she does not wish to attend at this time. Lastly, I offered a Saji Pull knee brace to assist with the lateralization of the patella. Patient was fit for this brace off the shelf and will use during activities. She will follow up PRN, sooner if needed. X-rays of bilateral knees which were obtained while in the office today and were reviewed by me, Neda Wheeler PA-C, revealed osteoarthritis. Orders: Orders XR knee RT 2V Today M25.569 - Pain in unspecified knee XR knee LT 2V Today M25.569 - Pain in unspecified knee Coding Level of Care Code New Pt Level 3 (76002) Diagnoses Osteoarthritis of knees, bilateral M17.0
[2024-12-29 11:52] VITALS: BMI 31.2
--- OUTSIDE RECORDS SUMMARY | 2024-12-29 15:46 | XMS_ITS | Clinical Summary ---
Author Organization [facility] Address [address] [place] [address] Care Team Providers Care Salesperson Jewelry Name Role Phone Akira Bedoya PA-C Primary Care Provider + [phone] Source Comments PLEASE NOTE, if this patient [...] days 5 Tablet 2 01/07/20 24 Active lisinopriL 20 mg tabletIndicati ons:Hypertensi on, [...] A MEAL 180 Tablet 12/11/19 25 Active famotidine (PEPCID) 20 mg tabletIndicati ons:Heartburn TAKE 1 TABLET BY MOUTH 2 TIMES DAILY NEEDED FOR HEARTBURN. 180 Tablet 1 12/22/19 25 Active cetirizine (ZYRTEC) 10 mg tabletIndicati ons:Watery eyes TAKE 1 TABLET BY MOUTH EVERY DAY 90 Tablet 1 02/25/20 24 2024 Discontinued amLODIPine (NORVASC) 5 mg tabletIndicati ons:Hypertensi on, essential TAKE 1 TABLET BY MOUTH EVERY DAY 90 Tablet 1 05/29/19 25 2024 Discontinued famotidine (PEPCID) 20 mg tabletIndicati ons:Heartburn TAKE 1 TABLET BY MOUTH 2 TIMES DAILY NEEDED FOR HEARTBURN. 180 Tablet 1 06/19/19 25 2024 Discontinued naproxen (NAPROSYN) 500 mg [...] or malignancy. Normal ovaries. - Referred to [facility] (internal) Bilateral lower extremity edema 08/02/2021 Chronic [...] abdominal aortic aneurysm 11/2014 Aortic ectasia, abdominal ([facility]-HCC V24) 07/22/19 15 S/P tubal ligation 06/28/2014 Hypertension, essential 01/08/2014 Heartburn 01/08/2014 Constipation, chronic 01/08/2014 Disturbance in sleep behavior 01/08/2014 Fibromyalgia 01/08/2014 Immunizations Immunization Administration Dates Next Due Flu, Preservative Free 01/08/2020,04/25/2018 HEP A-HEP B ([facility]) 02/08/2020 Hep A, adult 11/14/2021 Hep B,adult,adjuvanted (HEPLISAV) 02/28/2023, MMR (MMR II/Priorix) 02/17/2020,01/08/2020 PFIZER COVID VACCINE, PURPLE CAP, 12+ 11/02/2021 TDAP 11/25/2018 [...] 09/09/2024 09/10/2023, 03/16, 02/03/2020, Additional history exists [id number] (3 - season) 2024 11/23/2021, 11/02/2021 Imm-Influenza [...] Hypertension, essential 114/77( 025 1:17 PM EST) No Terrell Barker, PharmD Procedures Procedure Name Priority Date/Time Associated Diagnosis Comments IMAGING SCANNED DOCUMENT 12/21/2024 3:00 AM EDT REFERRAL SCANNED DOCUMENT 12/15/2024 3:00 AM EDT IMAGING SCANNED DOCUMENT 12/12/2024 3:00 AM EDT COMPREHENSIVE METABOLIC PANEL Routine 09/10/2023 3:41 PM [...] Recently Relevant to Health Maintenance Results * IMAGING SCANNED DOCUMENT (12/21/2024 3:00 AM EDT) Only the most recent of2 resultswithin the time period is included. 12/21/2024 3:00 AM EDT Akira Bedoya PA-C SCAN IMAGING Final Result * REFERRAL SCANNED DOCUMENT (12/15/2024 3:00 AM EDT) 12/15/2024 3:00 AM EDT Soncolumba Leticiao PA-C SCAN REFERRAL Final Result * (ABNORMAL) LIPID PANEL (09/10/2023 3:41 PM EDT) CHOLESTEROL, TOTAL 130 <200 mg/dL [facility] HDL CHOLESTEROL 43(L) > OR = 50 mg/dL [facility] TRIGLYCERIDES 173(H) <150 mg/dL [facility] LDL-CHOLESTEROL 62 99 mg/dL (calc) [facility] Comment: Reference range: <100 Desirable range <100 mg/dL for primary prevention; <70 mg/dL for patients with CHD or diabetic patients with > or = 2 CHD risk factors. LDL-C is now calculated using the Alirio-Mcclain calculation, which is a validated novel method providing better accuracy than the Friedewald equation in the estimation of LDL-C. Alirio SS et al. REJI. 2013;310(19): 0043-5621 (http://education.[employer]/faq/GRX142) CHOL/HDLC RATIO 3.0 <5.0 (calc) [facility] NON-HDL CHOLESTEROL 87 <130 mg/dL (calc) [facility] Comment: For patients with diabetes plus 1 major ASCVD risk factor, treating to a non-HDL-C goal of <100 mg/dL (LDL-C of <70 mg/dL) is considered a therapeutic option. Blood Blood / Unknown 09/10/2023 3 :41 PM EDT 09/10/2023 3:42 PM EDT Narrative [facility] - 09/11/2023 5:37 AM EDT FASTING:NO COLLECTION KIT GIVEN TO PATIENT. PATIENT ADVISED TO RETURN. Akira Bedoya PA-C LAB - BLOOD DRAW Final Resul t [facility] [address] [address], [place] [facility] [address] [place] [address] * (ABNORMAL) COMPREHENSIVE METABOLIC PANEL (09/10/2023 3:41 PM EDT) GLUCOSE 91 65 - 139 mg/dL [facility] Comment: Non-fasting reference interval UREA NITROGEN (BUN) 20 7 - 25 mg/dL [facility] CREATININE (blood) 0.85 0.50 - 1.03 mg/dL [facility] EGFR 79 > OR = 60 mL/min/1. 73m2 [facility] BUN/CREATININE RATIO SEE NOTE: [facility] Comment: Not Reported: BUN and Creatinine are within reference range. SODIUM 137 135 - 146 mmol/L [facility] POTASSIUM 4.4 3.5 - 5.3 mmol/L [facility] CHLORIDE 101 98 - 110 mmol/L [facility] CARBON DIOXIDE 27 20 - 32 mmol/L [facility] CALCIUM 10.3 8.6 - 10.4 mg/dL [facility] PROTEIN, TOTAL 7.6 6.1 - 8.1 g/dL [facility] ALBUMIN 4.7 3.6 - 5.1 g/dL [facility] GLOBULIN 2.9 1.9 - 3.7 g/dL (calc) [facility] ALBUMIN/GLOBULI N RATIO 1.6 1.0 - 2.5 (calc) [facility] BILIRUBIN, TOTAL 0.9 0.2 - 1.2 mg/dL [facility] ALKALINE PHOSPHATASE 132 37 - 153 U/L [facility] AST 30 10 - 35 U/L [facility] ALT 32(H) 6 - 29 U/L [facility] Blood Blood / Unknown 09/10/2023 3 :41 PM EDT 09/10/2023 3:42 PM EDT Narrative [employer] [facility] - 09/11/2023 5:37 AM EDT FASTING:NO COLLECTION KIT GIVEN TO PATIENT. PATIENT ADVISED TO RETURN. us Akira Bedoya PA-C LAB - BLOOD DRAW Final Resul t [employer] [facility] [address] [address], [place] [facility] [address] [address] * HISTORIC MAMMOGRAM (05/22/2023 3:00 AM EST) 05/22/2023 3:00 AM EST Akira Bedoya PA-C IMG MAMMO Edited Resul [...] AM EDT 02/03/2020 11:52 AM EDT Narrative [facility] - 02/03/2020 4:11 PM EDT [facility], a member of [address] [address] [place] H[place] [id number] ORD# [id number] [facility] LAB - BLOOD DRAW Edited Result - Final [address] [address], * PAP, LIQUID BASED (12/18/2019 1:54 PM EDT) PAP normal NORMAL - ABNORMAL [facility] Swab of endocervix (specimen) Endocervical structure / Unknown 12/18/2019 1:54 PM EDT Impressions [facility] - 12/18/2019 1:54 PM EDT Negative for squamous intraepithelial lesion and malignancy High risk HPV assay: Negative Repeat 5 years [facility] - PATHOLOGY AND CYTOLOGY AMB ULATORY Final Result Performing Organization Address City/[facility]/ZIP Co de Phone Number [facility] [address] [address], [place] [phone] * HIV-1 & HIV-2 ANTIBODIES (11/25/2018 4:38 PM EDT) HIV 1 AND 2 ANTIBODY SCREEN NEGATIVE NEGATIVE [facility] Comment: This assay is a [...] PM EDT 11/25/2018 7:16 PM EDT Narrative [facility] - 11/25/2018 9:18 PM EDT [employer], a member of [address] [address] [address] - Hiral P[place] [id number] ORD# [id number] [facility] - BLOOD DRAW Final Result [address] [address], [place] [phone] from Last 3 Months or Most Recently Relevant to Health Maintenance Insurance [employer] Care Teams Salesperson Jewelry Relationship Specialty Start Date End Date Akira Bedoya PA-C [address] [place] [address] PCP - General FAMILY MEDICINEAVERY 10/04/21
--- OUTSIDE RECORDS SUMMARY | 2024-12-29 15:47 | XMS_ITS | Clinical Summary ---
Author Organization [facility] Address [address] [facility] 7t [place] [address] Care Team Providers Care Spice Cleaner Name Role Phone Unavailable Primary Care Provider Unavailabl e Encounters Date Type Department Care Team Description 11/03/2024 Population Health Risk Score [facility] (C3) Department [address] [facility] 7 [place] [id number] Provider, Population Health Generic from Last 3 [...]
== END 2024-12-29 12:55 | disposition home or self-care (01) ==
LOC: HO.HOS 11:36
PROVIDERS: PCP Dentist General Practice; Visit Provider Physician Assistant
DX: M17.0 Bilateral primary osteoarthritis of knee (principal)
CPT/HCPCS: 99203

== ENCOUNTER → 2024-12-29 11:38 | Outpatient (BNV) | payer MEDICAID, SELFPAY | PROVIDERS: Visit Provider Radiology Diagnostic Radiology | DX: M17.0 Bilateral primary osteoarthritis of knee (principal); M11.261 Other chondrocalcinosis, right knee | CPT/HCPCS: 73560 ==

== ENCOUNTER 2025-01-06 13:38 | Outpatient (REF) | payer MEDICAID, SELFPAY ==
--- NOTE | ~2025-01-06 | XR_ITS ---
EXAMINATION: XR WRIST, LEFT CLINICAL INFORMATION: M25.532 - Pain in left wrist COMPARISON: December 2024 TECHNIQUE: PA, lateral, and oblique views of the left wrist. FINDINGS: Intact metallic plate placed in the volar aspect of the distal radius with multiple screws. Normal alignment fracture distal epiphysis of the radius. No gross callus formation in the fracture of the styloid processes, left ulna. XR/XR wrist LT min 3V IMPRESSION: Status post open reduction and internal fixation of the intra-articular comminuted fracture distal epiphysis left radius. No gross callus formation in the fracture of the styloid processes left ulna. Electronically signed by: Pascual Abernathy MD 01/06/2025 02:39 PM EDT
== END 2025-01-06 13:39 | disposition home or self-care (01) ==
LOC: HO.HOSX 13:38
PROVIDERS: PCP Dentist General Practice; Visit Provider Orthopaedic Surgery
DX: S52.502A Unspecified fracture of the lower end of left radius, initial encounter for closed fracture (principal); M25.642 Stiffness of left hand, not elsewhere classified; X58.XXXA Exposure to other specified factors, initial encounter
CPT/HCPCS: 73110; 99212

== ENCOUNTER 2025-01-06 13:38 | Outpatient (AMB) | payer MEDICAID, SELFPAY ==
--- NOTE | 2025-01-06 13:42 | MHC.OFFVIS ---
Vital Signs 01/06/25 13:43 Height 5 ft Weight 160 lb BMI 31.2 Intake Visit Reasons: PO LT Distal radius ORIF 12/21/24 AR Intake Note: Carina is a 59 year old right hand dominant female who presents today post-operatively status post Left Distal Radius ORIF performed 12/21/[address] Calabrese. Patient reports she continues taking the Oxycodone without relief. She complains of pain all around the hand. She denies numbness or tingling. Splint removed in office today. Allergies No Known Allergies (No Known Allergies*) Allergy (Verified 01/06/25 13:45) HPI HPI PO LT Distal radius ORIF 12/21/24 AR: Details: Carina is a 59 year old right hand dominant woman who returns S/P left distal radius ORIF, DOS: 12/21/24. She fractured her distal radius & distal ulna after falling off a [employer] truck, DOI: 12/12/24. She complains of pain in her entire hand. She says she has been taking Oxycodone without relief. 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 She says she is mostly just standing there and not doing anything strenuous with her wrist. 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 Sutures removed and Steri-Strips applied She was apprehensive to move her fist today when her splint was removed, bringing her fingertips to ~10cm from her palm We worked on ROM exercises today in clinic Before leaving clinic she could bring her fingertips to her palm, and could oppose her thumb to the tips of all fingers Sensation is intact Cap refill is brisk Radiographs: 3 views of the left wrist were taken and viewed by me today in clinic. They show a distal radius fracture with satisfactory fracture alignment and position of all implants. There is also a distal ulna fracture with satisfactory fracture alignment. Psych Appearance: grossly normal Affect: normal affect Attitude: cooperative Assessment & Plan Assessment & Plan (1) Fracture of left distal radius: Code(s): S52.502A - Unspecified fracture of the lower end of left radius, initial encounter for closed fracture Category: Medical (2) Stiffness of left hand joint: Code(s): M25.642 - Stiffness of left hand, not elsewhere classified Category: Medical Plan Assessment & Plan: 1. Left distal radius fracture, S/P ORIF DOI: 12/12/24 DOS: 12/21/24 2. Left distal ulna fracture DOI: 12/12/24 3. Left hand stiffness Secondary to disuse The patient appears to be doing well post-operatively I educated her about the post-operative course She was placed in a short arm cast, to be worn for the next 3 weeks I explained the signs and symptoms of infection, if the patient develops any new or worsening erythema, drainage, pain, or warmth they should contact the clinic or attend the ED. I discussed activity modifications, she is to lift nothing heavier than a cellphone for the next 6 weeks. They should also avoid any heavy impact activities, falls, or sports activities for the next 8 weeks She will perform gentle ROM exercises at home She should avoid any underwater activities I ordered OT hand therapy to work on gentle finger ROM exercises She will follow up in 2 weeks, with X-rays, 3V L wrist, OOP. Anticipate placement in splint & increase of OT hand therapy. Scribed for Yanira Calabrese MD by Sherif Carmichael, medical center director, on 01/06/25 at 2:50 PM, EST. Orders: Orders XR wrist LT min 3V Today M25.532 - Pain in left wrist OT Evaluation and Treatment Today M25.642 - Stiffness of left hand, not elsewhere classified, S52.502A - Unspecified fracture of the lower end of left radius, initial encounter for closed fracture Coding Level of Care Code Global (59652) Diagnoses Fracture of left distal radius S52.502A Stiffness of left hand joint M25.642
[2025-01-06 13:43] VITALS: BMI 31.2
== END 2025-01-06 15:38 | disposition home or self-care (01) ==
LOC: HO.HOS 13:38
PROVIDERS: PCP Dentist General Practice; Visit Provider Orthopaedic Surgery
DX: S52.502A Unspecified fracture of the lower end of left radius, initial encounter for closed fracture (principal); M25.642 Stiffness of left hand, not elsewhere classified
CPT/HCPCS: 99024

== ENCOUNTER → 2025-01-06 14:07 | Outpatient (BNV) | payer MEDICAID, SELFPAY | PROVIDERS: PCP Dentist General Practice; Visit Provider Radiology Diagnostic Radiology | DX: M25.532 Pain in left wrist (principal) | CPT/HCPCS: 73110 ==

== ENCOUNTER 2025-01-20 13:15 | Outpatient (AMB) | payer MEDICAID, SELFPAY ==
--- NOTE | 2025-01-20 13:19 | MHC.OFFVIS ---
Vital Signs 01/20/25 14:02 Height 5 ft Weight 160 lb BMI 31.2 Intake Visit Reasons: PO LT Distal radius ORIF 12/21/24 AR-w/xrays Intake Note: Carina is a 59 year old right hand dominant female who presents today post-operatively status post Left Distal Radius ORIF performed 12/21/[address] Calabrese. At her last visit she was placed in a short arm cast to be worn for the next 3 weeks. She was advised to not lift anything heavier than a cellphone for the next 6 weeks, avoiding any heavy impact activities for the next 8 weeks and underwater activities, while performing gentle ROM exercises at home. OT referral placed. Today cast was removed and xrays were taken. Patient states she continues to have pain/ 10/10 in pain scale. Allergies No Known Allergies (No Known Allergies*) Allergy (Verified 01/20/25 14:12) HPI HPI PO LT Distal radius ORIF 12/21/24 AR-w/xrays: Details: Carina is a 59 year old right hand dominant woman who returns S/P left distal radius ORIF, DOS: 12/21/24. She fractured her distal radius & distal ulna after falling off a [employer] truck, DOI: 12/12/24. She complains of pain in her entire hand. She says she cannot make a fist and has no desire to push through the pain to make a fist and improve her ROM. She says she is happy to live like this in regards to her limited finger ROM. It sounds like most of the pain she has is when she is needing to work on range of motion She has started OT hand therapy and has more appointments scheduled. 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 She says she is mostly just standing there and not doing anything strenuous with her wrist. 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 I worked with her today on ROM exercises today in clinic She could flex her MCP joints to ~75 degrees, and only bring her fingertips to about 6 cm from her palm Before leaving clinic she could bring her MCPs to about 85 degrees, and her fingertips ~1cm from her palm. Wrist ROM: Pronation: ~80 degrees Supination: ~55 degrees Flexion: ~20 degrees Extension: ~0 degrees Sensation is intact Cap refill is brisk Radiographs: 3 views of the left wrist were taken and viewed by me today in clinic. They show a distal radius fracture with satisfactory fracture alignment and position of all implants. There is also a distal ulna fracture with satisfactory fracture alignment. Both fractures with good evidence of interval bony healing. Psych Appearance: grossly normal Affect: normal affect Attitude: cooperative Assessment & Plan Assessment & Plan (1) Fracture of left distal radius: Code(s): S52.502A - Unspecified fracture of the lower end of left radius, initial encounter for closed fracture Category: Medical (2) Stiffness of left hand joint: Code(s): M25.642 - Stiffness of left hand, not elsewhere classified Category: Medical Plan Assessment & Plan: 1. Left distal radius fracture, S/P ORIF DOI: 12/12/24 DOS: 12/21/24 2. Left distal ulna fracture DOI: 12/12/24 3. Left hand stiffness Secondary to disuse The patient appears to be doing well post-operatively I educated her about the post-operative course She was fitted for a velcro wrist splint, to be worn with daily activities when out of the house for the next 4 weeks. She will remove this at home. I discussed activity modifications, she is to lift nothing heavier than a cellphone for the next 4 weeks. They should also avoid any heavy impact activities, falls, or sports activities for the next 6 weeks She will perform finger & wrist ROM exercises at home and with OT. She is very apprehensive about working on ROM exercises, particularly for her fingers She will increase her ROM, stretching, and normalizing function exercises with OT hand therapy She will follow up in 4 weeks for a ROM check, with X-rays, 3V L wrist, OOP Scribed for Yanira Calabrese, MD by Sherif Carmichael, medical assistant per diem, on 01/20/25 at 2:20 PM, EST. Orders: Orders XR wrist LT min 3V Today M25.532 - Pain in left wrist Coding Level of Care Code Global (64051) Diagnoses Fracture of left distal radius S52.502A Stiffness of left hand joint M25.642
[2025-01-20 14:02] VITALS: BMI 31.2
== END 2025-01-20 14:46 | disposition home or self-care (01) ==
LOC: HO.HOS 13:15
PROVIDERS: PCP Dentist General Practice; Visit Provider Orthopaedic Surgery
DX: S52.502A Unspecified fracture of the lower end of left radius, initial encounter for closed fracture (principal); M25.642 Stiffness of left hand, not elsewhere classified
CPT/HCPCS: 99024

== ENCOUNTER 2025-01-20 13:15 | Outpatient (REF) | payer MEDICAID, SELFPAY ==
--- NOTE | ~2025-01-20 | XR_ITS ---
EXAMINATION: XR WRIST, LEFT CLINICAL INFORMATION: M25.532 - Pain in left wrist , follow-up post-ORIF COMPARISON: 01/06/2025 TECHNIQUE: PA, lateral, and oblique views of the left wrist. FINDINGS: Volar plate and screws fix a distal radial fracture. Subtle lucency is less visible on the ulnar side of the distal radius. There is also increasing density through the fracture line of the base of ulnar styloid. XR/XR wrist LT min 3V IMPRESSION: Continued healing post-ORIF Electronically signed by: Andrea Pandey MD 01/20/2025 02:19 PM EDT
== END 2025-01-20 13:16 | disposition home or self-care (01) ==
LOC: HO.HOSX 13:15
PROVIDERS: PCP Dentist General Practice; Visit Provider Orthopaedic Surgery
DX: S52.502D Unspecified fracture of the lower end of left radius, subsequent encounter for closed fracture with routine healing (principal); M25.642 Stiffness of left hand, not elsewhere classified; X58.XXXD Exposure to other specified factors, subsequent encounter
CPT/HCPCS: 73110; 99212

== ENCOUNTER → 2025-01-20 13:51 | Outpatient (BNV) | payer MEDICAID, SELFPAY | PROVIDERS: PCP Dentist General Practice; Visit Provider Radiology Diagnostic Radiology | DX: S52.502D Unspecified fracture of the lower end of left radius, subsequent encounter for closed fracture with routine healing (principal); Z98.890 Other specified postprocedural states | CPT/HCPCS: 73110 ==

== ENCOUNTER 2025-02-08 07:53 | Outpatient (RCR) | payer MEDICAID, SELFPAY ==
--- NOTE | 2025-01-11 08:50 | MHC.OT.EP ---
[facility] Office [address] [facility] [phone] F: [phone] F: [phone] Occupational Therapy Plan of Care Patient Name: Carina Quezada Date of Evaluation: 01/11/25 Diagnosis: Left DRF; Post Op ORIF Pain Location: Minimal pain at rest High pain in volar wrist at times Pain Score: 8 Pain Scale Used: Numeric (0 - 10) Aggravating Factors: Random pain, I don't know what because I don't do anything Alleviating Factors: Nothing used Assessment: 59 yo female fell from [employer] resulting in left DRF 12/12/24. She was seen by ortho and underwent ORIF 12/21/24 w/ Dr Calabrese. Splint removed 01/06/25 and placed in cast. Pt has been referred to OT to initiate therapy for ROM. On assessment today, it appears that she has been doing well with her education from ortho, she is able to flex digits to tough cast, although end range is still limited with hook and she continues to have some edema, overall range is good. We have continued reinforcement of ROM and digit stretching, with education on edema management techniques. We will continue hand therapy and add wrist exercises and progress strengthening as appropriate. Frequency and Duration: The patient will be seen 2x/wk for 6 weeks Short Term Goals: Ind w/ HEP for AROM and PROM to digits Ind w/ edema management techniques Full active hook fist Initiate scar management once cast removed [facility] Goals: Gross grasp >25lb Wrist ext/flex 50/50 Wrist pro/sup 80/80 Pt to demo good use of left hand w/ incorporation of bimanual home care tasks (lifting laundry, cooking/cutting, mopping, etc) Full composite flex Pain free at rest <3/10 w/ moderate IADL/ADL Treatment Plan: Therapeutic Exercise Therapeutic Activity Home Exercise Program Splinting Patient Education Desensitization/Sensory Re-ed Edema Control ADL Training Paraffin Fluidotherapy MHP Cold Packs Joint Mobilization Soft Tissue Mobilization Kinesiotaping Electronically Signed By: Jayne Pappas OTR/L CHT Please Sign and return to therapist. Thank you once again for your referral.
--- NOTE | 2025-03-31 13:34 | MHC.OT.DC ---
[facility] Office [address] [phone] F: [phone] F: [phone] Occupational Therapy Discharge Note Patient Name: Carina Quezada Provider: Dr Yanira Calabrese Diagnosis: Left DRF; Post Op ORIF Date of Surgery: 12/21/24 Date of Evaluation: 01/11/25 Date of Discharge: 03/31/25 Treatments to Date: 7 Discharge Status: Independent with HEP Patient Elected to Stop Discharge Summary: Carina was referred to OT for Left DRF post-op ORIF, last seen almost two months ago. At that time, she was 7 weeks post-op, making gains with range and motivated with good attendance, but just starting strengthening and progressing range. She had MD follow-up 02/16 and x-ray showed healing and MD recommended continued therapy, but she has not followed up for further visits since that time and we will be discharging from services. Electronically Signed By: JASON Borden/Deonna CHT Reviewed/agree with student documentation: Therapist: Please Sign and return to therapist, thank you for your referral.
== END 2025-03-31 13:35 | disposition home or self-care (01) ==
LOC: HO.OT 07:53
PROVIDERS: PCP Physician Assistant; Visit Provider Orthopaedic Surgery
DX: S52.502D Unspecified fracture of the lower end of left radius, subsequent encounter for closed fracture with routine healing (principal); M25.642 Stiffness of left hand, not elsewhere classified
CPT/HCPCS: 97110; 97140; 97165

== ENCOUNTER 2025-02-16 08:46 | Outpatient (AMB) | payer MEDICAID, SELFPAY ==
[2025-02-16 09:06] VITALS: BMI 31.2
--- NOTE | 2025-02-16 09:06 | A.OFFVIS_ITS ---
Vital Signs 02/16/25 09:06 Height 5 ft Weight 160 lb BMI 31.2 Intake Visit Reasons: PO LT Distal radius ORIF 12/21/24 AR-w/xrays Intake Note: Carina is a 59 year old right hand dominant female who presents today post- operatively status post Left Distal Radius ORIF performed 12/21/[address] Calabrese. Last seen with Dr Calabrese where she was fitted for a velcro wrist brace to wear with activities and remove at home, she is to lift nothing heavier than a cellphone for the next 4 weeks. She was advise she should also avoid any heavy impact activities, falls, or sports activities, perform finger & wrist ROM exercises at home and with OT. She presents today for a ROM check. Today patient states she has completed O.T and continues to have swelling on and off. She is able to make a fist however swelling makes it harder at times. Allergies No Known Allergies (No Known Allergies*) Allergy (Verified 02/16/25 09:16) HPI HPI PO LT Distal radius ORIF 12/21/24 AR-w/xrays: Details: Carina is a 59 year old right hand dominant woman who returns S/P left distal radius ORIF, DOS: 12/21/24. She fractured her distal radius & distal ulna after falling off a [employer] truck, DOI: 12/12/24. She says she is doing better and has completed her course of OT. She continues to have intermittent swelling which she says limits her ROM. She says it still hurts her wrist to move through flexion & extension, so she does not push it for those exercises. She denies any numbness or tingling. 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 She says she was let go from her [employer] job and is currently unemployed. 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[employer] & [employer] Review of Systems Const All systems reviewed & are unremarkable except as noted in HPI and below Physical Exam Vital Signs: BMI result Body Mass Index 31.2 Const General: no acute distress and alert Orientation/consciousness: patient oriented x3 Neuro General: patient oriented x3 Extrem Other: Evaluation of Left Upper Extremity: The patient is alert, oriented, and in no acute distress Neuro: Median, Ulnar, Radial nerves motor and sensory intact and sensation is normal to the tips of all digits Vascular: Cap refill brisk ROM: She can make a tight fist with good strength and no pain Wrist ROM: Pronation: ~80 degrees Supination: ~70 degrees Flexion: ~55 degrees Extension: ~30 degrees Radiographs: 3 views of the left wrist were taken and viewed by me today in clinic. They show a distal radius fracture with satisfactory fracture alignment and position of all implants. There is also a distal ulna fracture with satisfactory fracture alignment. Both fractures with very good evidence of interval bony healing. Psych Appearance: grossly normal Affect: normal affect Attitude: cooperative Assessment & Plan Assessment & Plan (1) Fracture of left distal radius: Code(s): S52.502A - Unspecified fracture of the lower end of left radius, initial encounter for closed fracture Category: Medical (2) Stiffness of left hand joint: Code(s): M25.642 - Stiffness of left hand, not elsewhere classified Category: Medical Plan Assessment & Plan: 1. Left distal radius fracture, S/P ORIF DOI: 12/12/24 DOS: 12/21/24 2. Left distal ulna fracture DOI: 12/12/24 3. Left hand stiffness Secondary to disuse The patient appears to be doing well post-operatively I educated her about the post-operative course She will discontinue her wrist splint at this time Goals now she will be strengthening and working hard on wrist range of motion. I discussed activity modifications, she is to use her hand for normal daily activities, and increase her weight limit as tolerated over the next 4 weeks. She will continue to work on ROM exercises at home, with a particular focus on wrist flexion & extension. She said that she did not need a note as she currently is not employed. I explained that she is now able to return to full duty, without restrictions. I recommend she contact OT and resume therapy appointments. She can either accept where she is right now or put in the work to improve her ROM & increasing her strength. I reminded her that she needs to continue to put in the work with OT or they will discharge her. She will follow up prn Scribed for Yanira Calabrese MD by Sherif Carmichael, medical director occupational health, on 02/16/25 at 9:25 AM, EST. Orders: Orders XR wrist LT min 3V Today M25.532 - Pain in left wrist XR wrist LT min 3V Today M25.532 - Pain in left wrist Coding Level of Care Code Global (27659) Diagnoses Fracture of left distal radius S52.502A Stiffness of left hand joint M25.642
--- OUTSIDE RECORDS SUMMARY | 2025-02-16 09:15 | XMS_ITS | Clinical Summary ---
Author Organization [employer] Address [address] 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
== END 2025-02-16 09:39 | disposition home or self-care (01) ==
LOC: HO.HOS 08:46
PROVIDERS: PCP Dentist General Practice; Visit Provider Orthopaedic Surgery
DX: S52.502A Unspecified fracture of the lower end of left radius, initial encounter for closed fracture (principal); M25.642 Stiffness of left hand, not elsewhere classified
CPT/HCPCS: 99024

== ENCOUNTER → 2025-02-16 08:48 | Outpatient (BNV) | payer MEDICAID, SELFPAY | PROVIDERS: Visit Provider Radiology Diagnostic Radiology | DX: M25.532 Pain in left wrist (principal) | CPT/HCPCS: 73110 ==

== ENCOUNTER 2025-02-16 09:08 | Outpatient (REF) | payer MEDICAID, SELFPAY ==
--- NOTE | ~2025-02-16 | XR_ITS ---
EXAMINATION: XR WRIST, LEFT CLINICAL INFORMATION: M25.532 - Pain in left wrist COMPARISON: 01/20/2025, 01/06/2025. 12/15/2024. TECHNIQUE: PA, lateral, and oblique views of the left wrist. 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 Redemonstration of prior ORIF of a distal radial fracture with volar plate and screw fixation. The hardware is intact, well seated, without periprosthetic lucency or complication. Fracture lines are difficult to appreciate, although appear less distinct, and in stable alignment. Redemonstration of a nondisplaced fracture through the base of the ulnar styloid. There is persistent although improving soft tissue swelling surrounding the wrist. XR/XR wrist LT min 3V IMPRESSION: No significant interval change since 01/20/2025. Electronically signed by: Jonathan Conley MD 02/16/2025 09:00 AM [facility]
--- OUTSIDE RECORDS SUMMARY | 2025-02-16 09:53 | XMS_ITS | Clinical Summary ---
Author Organization [facility] Address [address] [place] [address] Care Team Providers Care Sanitary Aide Name Role Phone Akira Bedoya PA-C Primary Care Provider + [phone] Source Comments PLEASE NOTE, if this patient is a minor, it may be UNLAWFUL to discuss sensitive information that is contained in these records (such as FAMILY PLANNING, MENTAL HEALTH or SUBSTANCE ABUSE) with the minor patient's parent or other person without the patient's specific authorization.[facility] Allergies No known active allergies Medications miscellaneous medical supply miscIndications :Bilateral carpal tunnel syndrome by miscellaneous route once daily Bilateral hand/wrist splints. Wear nightly. Dx: G56.03 1 Each 10/23/19 19 Active PURELAX 17 gram/dose powderIndicatio ns:Constipation , chronic TAKE 17 G BY MOUTH ONCE DAILY NEEDED (CONSTIPATION) 238 g 3 09/26/19 21 Active blood pressure monitorIndicati ons:Hypertensio n, essential Use to check blood pressure daily and as needed. Dx: I10 LOS: 99 Meds: lisinopril Pt needs automatic blood pressure monitor because it is extremely difficult to obtain a manual blood pressure on self. Additionally, pt is not medically trained to use a stethoscope or how to read a sphygmometer. 1 Kit 11/11/19 21 Active compress.stocki ng,knee,reg,med Indications:Leg swelling One (1) pair of compression socks 15-20 mmHg. Wear daily; do not sleep with socks. Dx: I89 LOS: 99 2 Each 1 11/11/19 21 Active acetaminophen (TYLENOL) 500 mg tabletIndicatio ns:Chronic midline low back pain with left-sided sciatica TAKE 2 TABS EVERY 8 HOURS FOR PAIN 60 Tablet 1 06/01/19 22 Active valACYclovir (VALTREX) 1 gram tabletIndicatio ns:PCR DNA positive for HSV1 Take 1 Tablet by mouth once daily take for 5 days 5 Tablet 2 01/07/20 24 Active lisinopriL 20 mg tabletIndicatio ns:Hypertension , essential TAKE 1 TABLET BY MOUTH EVERY DAY 90 Tablet 2 07/30/19 25 Active rosuvastatin (CRESTOR) 20 mg tabletIndicatio ns:Hypertriglyc eridemia TAKE 1 TABLET BY MOUTH EVERY DAY 90 Tablet 1 09/04/19 25 Active cetirizine (ZYRTEC) 10 mg tabletIndicatio ns:Watery eyes TAKE 1 TABLET BY MOUTH EVERY DAY 90 Tablet 1 12/08/19 25 Active amLODIPine (NORVASC) 5 mg tabletIndicatio ns:Hypertension , essential TAKE 1 TABLET BY MOUTH EVERY DAY 90 Tablet 1 12/08/19 25 Active naproxen (NAPROSYN) 500 mg tabletIndicatio ns:Nonintractab le headache, unspecified chronicity pattern, unspecified headache type TAKE 1 TABLET BY MOUTH TWICE A DAY WITH A MEAL 180 Tablet 12/11/19 25 Active famotidine (PEPCID) 20 mg tabletIndicatio ns:Heartburn TAKE 1 TABLET BY MOUTH 2 TIMES DAILY NEEDED FOR HEARTBURN. 180 Tablet 1 12/22/19 25 Active gabapentin (NEURONTIN) 300 mg capsuleIndicati ons:Vasomotor symptoms due to menopause,Fibro myalgia Take 1 Capsule by mouth daily. 30 Capsule 3 02/02/20 25 Active gabapentin (NEURONTIN) 300 mg capsuleIndicati ons:Vasomotor symptoms due to menopause,Fibro myalgia Take 1 Capsule by mouth daily. 30 Capsule 3 10/28/19 24 025 Discontin ued(Reord er (E-Cancel Not Sent)) Active Problems Problem Noted Date Diagnosed Date [...] or malignancy. Normal ovaries. - Referred to [facility] (internal) Bilateral lower extremity edema 08/02/2021 Chronic [...] abdominal aortic aneurysm 11/2014 Aortic ectasia, abdominal 07/21/2014 S/P tubal ligation 06/28/2014 Hypertension, essential 01/08/2014 [...] 09/10/2023 2:49 PM EDT Plan of Treatment Upcoming Encounters Date Type Department Care Team (Late st Contact Info) Description 04/01/2025 11:00 AM EST Office Visit [facility] [phone] [place] [phone] Akira Bedoya PA-C [address] [place] [id number] Health Maintenance Due Date Last Done Comments Anxiety Screening 1965 HPV Screening (self-collect) 1965 HPV Screening 1965 Pap + HPV [...] 09/09/2024 09/10/2023, 03/16, 02/03/2020, Additional history exists [id number] (3 - season) 2024 11/23/2021, 11/02/2021 Imm-Influenza (#1) 2024 01/08/2020, 04/25/2018 Imm-Zoster, Recombinant (1 of 2) 2025 Postponed from 07/08/2015 (Not appropriate at this time) Imm-DTaP/Tdap/Td (2 - Td or Tdap) 11/25/2028 11/25/2018 HIV Screening Completed 11/25/2018 Hepatitis C Screening Completed 02/03/2020, 015 Imm-Hepatitis B Completed 02/28/2023, 01/14, 01/04/2020 Cervical Ablation/Cold-Knife Conization Discontinued Cervical Cryotherapy Discontinued Colposcopy Discontinued Excision/Leep Discontinued HPV Genotyping Discontinued Vaginal Pap Discontinued Vulvoscopy Discontinued Goals Goal Patient Goal Type Associated Problems Recent Progress Patient-Stated? Author Blood Pressure < 140/90 Blood Pressure Hypertension, essential 114/77( 025 1:17 PM EST) No Terrell Barker, PharmD Procedures Procedure Name Priority Date/Time Associated Diagnosis Comments REFERRAL SCANNED DOCUMENT 01/20/2025 3:00 AM EDT IMAGING SCANNED DOCUMENT 01/20/2025 3:00 AM EDT IMAGING SCANNED DOCUMENT 01/20/2025 3:00 AM EDT REFERRAL SCANNED DOCUMENT 01/06/2025 3:00 AM EDT IMAGING SCANNED DOCUMENT 01/06/2025 3:00 AM EDT IMAGING SCANNED DOCUMENT 01/06/2025 3:00 AM EDT REFERRAL SCANNED DOCUMENT 12/29/2024 3:00 AM EDT IMAGING SCANNED DOCUMENT 12/21/2024 3:00 AM EDT IMAGING SCANNED DOCUMENT 12/21/2024 3:00 AM EDT REFERRAL SCANNED DOCUMENT 12/15/2024 3:00 AM EDT IMAGING SCANNED DOCUMENT 12/12/2024 3:00 AM EDT IMAGING SCANNED DOCUMENT 12/12/2024 3:00 AM EDT IMAGING SCANNED DOCUMENT 12/12/2024 3:00 AM EDT IMAGING SCANNED DOCUMENT 12/12/2024 [...] Recently Relevant to Health Maintenance Results * REFERRAL SCANNED DOCUMENT (01/20/2025 3:00 AM EDT) Only the most recent of4 resultswithin the time period is included. 01/20/2025 3:00 AM EDT us Neironeiny Penalo PA-C SCAN REFERRAL Final Result * IMAGING SCANNED DOCUMENT (01/20/2025 3:00 AM EDT) Only the most recent of10 resultswithin the time period is included. 01/20/2025 3:00 AM EDT us [employer] Penalo PA-C SCAN IMAGING Final Result * (ABNORMAL) LIPID PANEL (09/10/2023 3:41 PM EDT) CHOLESTEROL, TOTAL 130 <200 mg/dL [facility] (app) HDL CHOLESTEROL 43(L) > OR = 50 mg/dL [facility] (app) TRIGLYCERIDES 173(H) <150 mg/dL [facility] (app) LDL-CHOLESTEROL 62 99 mg/dL (calc) [facility] (app) Comment: Reference range: <100 Desirable range <100 mg/dL for primary prevention; <70 mg/dL for patients with CHD or diabetic patients with > or = 2 CHD risk factors. LDL-C is now calculated using the Alirio-Sarahi calculation, which is a validated novel method providing better accuracy than the Friedewald equation in the estimation of LDL-C. Alirio RM et al. REJI. 2013;310(19): 0801-3354 (http://education.viavoo/faq/JPI322) CHOL/HDLC RATIO 3.0 <5.0 (calc) Chance (app) NON-HDL CHOLESTEROL 87 <130 mg/dL (calc) [facility] (app) Comment: For patients with diabetes plus 1 major ASCVD risk factor, treating to a non-HDL-C goal of <100 mg/dL (LDL-C of <70 mg/dL) is considered a therapeutic option. Blood Blood / Unknown 09/10/2023 3 :41 PM EDT 09/10/2023 3:42 PM EDT Narrative [facility] - 09/11/2023 5:37 AM EDT FASTING:NO COLLECTION KIT GIVEN TO PATIENT. PATIENT ADVISED TO RETURN. us Akira Bedoya PA-C LAB - BLOOD DRAW Final Resul t [facility] [address] [address], [facility] [address] [place] [address] * (ABNORMAL) COMPREHENSIVE METABOLIC PANEL (09/10/2023 3:41 PM EDT) GLUCOSE 91 65 - 139 mg/dL [facility] Comment: Non-fasting reference interval UREA NITROGEN (BUN) 20 7 - 25 mg/dL [facility] CREATININE (blood) 0.85 0.50 - 1.03 mg/dL [facility] EGFR 79 > OR = 60 mL/min/1. 73m2 [facility] BUN/CREATININE RATIO SEE NOTE: 6 [facility] Comment: Not Reported: BUN and Creatinine are within reference range. SODIUM 137 135 - 146 mmol/L [facility] POTASSIUM 4.4 3.5 - 5.3 mmol/L [facility] CHLORIDE 101 98 - 110 mmol/L [facility] CARBON DIOXIDE 27 20 - 32 mmol/L [facility] CALCIUM 10.3 8.6 - 10.4 mg/dL [facility] PROTEIN, TOTAL 7.6 6.1 - 8.1 g/dL [facility] ALBUMIN 4.7 3.6 - 5.1 g/dL [facility] GLOBULIN 2.9 1.9 - 3.7 g/dL (calc) [facility] ALBUMIN/GLOBULI N RATIO 1.6 1.0 - 2.5 (calc) [facility] BILIRUBIN, TOTAL 0.9 0.2 - 1.2 mg/dL [facility] ALKALINE PHOSPHATASE 132 37 - 153 U/L [facility] AST 30 10 - 35 U/L [facility] ALT 32(H) 6 - 29 U/L [facility] Blood Blood / Unknown 09/10/2023 3 :41 PM EDT 09/10/2023 3:42 PM EDT Narrative [facility] - 09/11/2023 5:37 AM EDT FASTING:NO COLLECTION KIT GIVEN TO PATIENT. PATIENT ADVISED TO RETURN. us Akira Bedoya PA-C LAB - BLOOD DRAW Final Resul t [facility] [address] [address], [employer] [facility] [address] [place] [address] * HISTORIC MAMMOGRAM (05/22/2023 3:00 AM EST) 05/22/2023 3:00 AM EST us Akira Bedoya PA-C IMG MAMMO Edited Resul t - Final * HEPATITIS A,B,C PANEL (02/03/2020 11:00 AM EDT) HEPATITIS B SURFACE ANTIBODY NEGATIVE NEGATIVE [facility] HEPATITIS B SURFACE ANTIGEN NEGATIVE NEGATIVE [facility] Comment: Over the counter supplements containing high doses of biotin may interfere with this assay. If interference is suspected, patients shoud be retested after refraining from biotin supplements for 72 hours. HEPATITIS C VIRUS DIAGNOSTIC NEGATIVE NEGATIVE [facility] HEPATITIS A ANTIBODY TOTAL NEGATIVE NEGATIVE [facility] Comment: Over the counter supplements containing high doses of biotin may interfere with this assay. If interference is suspected, patients shoud be retested after refraining from biotin supplements for 72 hours. HEPATITIS B CORE ANTIBODY NEGATIVE NEGATIVE [facility] 02/03/2020 11:0 0 AM EDT 02/03/2020 11:52 AM EDT Narrative [facility] - 02/03/2020 4:11 PM EDT [employer], a member of [address] [address] Plastic Sheets Supervisor - Hiral P[place] [id number] ORD# [id number] [facility] - BLOOD DRAW Edited Result - Final Performing Organization Address [facility] Co de Phone Number [address] [address], * PAP, LIQUID BASED (12/18/2019 1:54 PM EDT) PAP normal NORMAL - ABNORMAL [facility] Swab of endocervix (specimen) Endocervical structure / Unknown 12/18/2019 1:54 PM EDT Impressions [facility] - 12/18/2019 1:54 PM EDT Negative for squamous intraepithelial lesion and malignancy High risk HPV assay: Negative Repeat 5 years [facility] - PATHOLOGY AND CYTOLOGY AMB ULATORY Final Result Performing Organization Address [facility] de Phone Number [address] [address], [place] [phone] * HIV-1 & HIV-2 ANTIBODIES (11/25/2018 4:38 PM EDT) Pathologist [facility] HIV 1 AND 2 ANTIBODY SCREEN NEGATIVE NEGATIVE [facility] Comment: This assay is a 4th [...] PM EDT 11/25/2018 7:16 PM EDT Narrative [facility] - 11/25/2018 9:18 PM EDT [employer], a member of [address] [address] Plastic Sheets Supervisor - Hiral Pena [place] [id number] ORD# [id number] [facility] - BLOOD DRAW Final Result Performing Organization Address City/[facility]/ZIP Co de Phone Number [facility] [address] [place] [address], from Last 3 Months or Most Recently Relevant to Health Maintenance Insurance [facility] [employer] Care Teams Sanitary Aide Relationship Specialty Start Date End Date Akira Bedoya PA-C [address] [place] [address] PCP - General FAMILY MEDICINEAVERY 10/04/21
== END 2025-02-16 09:09 | disposition home or self-care (01) ==
LOC: HO.HOSX 09:08
PROVIDERS: Visit Provider Orthopaedic Surgery
DX: S52.502D Unspecified fracture of the lower end of left radius, subsequent encounter for closed fracture with routine healing (principal); M25.642 Stiffness of left hand, not elsewhere classified; M25.532 Pain in left wrist; Z98.890 Other specified postprocedural states; X58.XXXD Exposure to other specified factors, subsequent encounter
CPT/HCPCS: 73110; 99212